=== PATIENT | male | born 1975 | race Caucasian/White ===

== ENCOUNTER 2017-06-05 22:09 | Inpatient (IN) | payer MEDICARE, MEDICAID ==
[~2017-06-05] VITALS: Ht 188 cm; Wt 163.7 kg
--- NOTE | 2017-06-05 22:10 | NUR ---
NARCAN 2MG GIVEN IVP PER DR BEASLEY VERBAL ORDER.
--- NOTE | 2017-06-05 22:13 | NUR ---
BBRA 86; ALTERED/ SOB. PT NOT RESPONSIVE. AGONAL BREATHING NOTED. NO NVD AT THIS TIME. PT NOT DIAPHORETIC. PT GOWNED AND PLACED ON MONITOR DR. BEASLEY AT BEDSIDE, RT AT BEDSIDE.
--- NOTE | 2017-06-05 22:14 | NUR ---
PT INTUBATED PER DR. BEASLEY. RT AT BEDSIDE
--- NOTE | 2017-06-05 22:15 | NUR ---
ET TUBE 8 AT 26 CM LIP. PT PLACED ON PRESCRIBED VENT SETTINGS. AC 15 TV 615 PEEP 5 FI02 100%
--- NOTE | 2017-06-05 22:19 | NUR ---
CALLED NURSING SUP. FOR ICU BED
[2017-06-05] MEDS ORDERED: NALOXONE PREFILLED SYRINGE 2 MG/2 ML SYRINGE ONE (22:23)
[2017-06-05 22:24] VITALS: BP 133/96
[2017-06-05] MEDS ORDERED: IV NS 0.9% 1,000 ML BAG IV ONE (22:30)
--- NOTE | 2017-06-05 22:32 | NUR ---
PT BROUGHT IN TO ER UNRESPONSIVE. PT INTUBATED WITH SIZE 8 ET TUBE @26 LIP. GOOD CO2 EXCHANGE OBSERVED. BILATERAL CHEST MOVEMENT. PT PLACED ON MECHANICAL VENTILATOR. ABG TO FOLLOW. Addendum: 06/05/17 at 2234 by NITZA FOLEY RT Amended: Links added.
--- NOTE | 2017-06-05 22:33 | NUR ---
LAB AT BEDSIDE FOR BLOOD DRAW
--- NOTE | 2017-06-05 22:46 | NUR ---
RADIOLOGY AT BEDSIDE FOR CXR
[2017-06-05 22:50] LABS: BASOPHILS % (AUTO) 0.3 % (0.0-2.0); EOSINOPHILS # (AUTO) 0.9 /CMM (0.0-0.7); EOSINOPHILS % (AUTO) 16.1 % (0.0-6.0); HEMATOCRIT 52 % (39-51); HEMOGLOBIN 17.3 g/dL (13.5-17.5); LYMPHOCYTES # (AUTO) 1.1 /CMM (0.8-4.8); LYMPHOCYTES % (AUTO) 19.2 % (20.0-44.0); MEAN CORPUSCULAR HEMOGLOBIN 28 PG (26.0-33.0); MEAN CORPUSCULAR HGB CONC 33 g/dl (31.0-36.0); MEAN CORPUSCULAR VOLUME 84 fL (80-96); MONOCYTES # (AUTO) 0.5 /CMM (0.1-1.30); NEUTROPHILS # (AUTO) 3.3 /CMM (1.8-8.9); NEUTROPHILS % (AUTO) 56.4 % (43.0-81.0); PLATELET COUNT (AUTO) 233 /CMM (150-450); RDW COEFFICIENT OF VARIATION 16.1 (11.5-15.0); RED BLOOD CELL COUNT(AUTO) 6.21 MIL/uL (4.5-6.0); WHITE BLOOD COUNT (AUTO) 5.8 K/uL (4.3-11.0)
[2017-06-05 22:58] LABS: APPEARANCE,URINE CLEAR (CLEAR); BILIRUBIN,URINE NEGATIVE (NEGATIVE); BLOOD, URINE NEGATIVE Ery/uL (NEGATIVE); COLOR,URINE YELLOW (YELLOW); KETONES,URINE NEGATIVE (NEGATIVE); LEUKOCYTE ESTERASE ,URINE NEGATIVE (NEGATIVE); NITRITE, URINE NEGATIVE (NEGATIVE); PH,URINE 7.5 (5.0-8.0); PROTEIN,URINE NEGATIVE (NEGATIVE); UGLUCOSE NEGATIVE (NEGATIVE); UROBILINOGEN,URINE 0.2 EU/dL (0.2)
[2017-06-05] MEDS ORDERED: ROCURONIUM BROMIDE 50 MG/5 ML IV ONE (23:00)
[2017-06-05] MEDS ORDERED: ETOMIDATE 2 MG/ML VIAL IV ONE (23:00)
[2017-06-05] MEDS ORDERED: PROPOFOL 100 ML IV PRN (23:00)
[2017-06-05 23:16] LABS: SERUM AMMONIA 104 umol/L (11-32)
[2017-06-05] MEDS ORDERED: PROPOFOL 100 ML IV ONE (23:16)
[2017-06-05 23:19] LABS: THYROID STIMULATING HORMONE 5.352 uIU/mL (0.358-3.74)
[2017-06-05 23:20] LABS: CHLORIDE 101 mmol/L (98-107); POTASSIUM 3.6 mmol/L (3.5-5.1); SODIUM SERUM 141 mmol/L (136-145)
[2017-06-05 23:21] LABS: CALCIUM, SERUM 8.4 mg/dL (8.5-10.1); CREATININE 0.8 mg/dL (0.6-1.3); GLUCOSE 116 mg/dL (74-106); UREA NITROGEN, BLOOD 8 mg/dL (7-18)
[2017-06-05 23:22] LABS: CARBON DIOXIDE 40 mmol/L (21-32)
[2017-06-05 23:23] LABS: TROPONIN I < 0.017 ng/mL (0.00-0.056)
--- NOTE | 2017-06-05 23:24 | NUR ---
BED 251 ICU
[2017-06-05 23:27] LABS: ALANINE AMINOTRANSFERASE 16 U/L (12-78); ALKALINE PHOSPHATASE 83 U/L (46-116); ASPARTATE AMINOTRANSFERASE 27 U/L (15-37); BILIRUBIN,TOTAL 0.3 mg/dL (0.2-1.0)
[2017-06-05 23:28] LABS: ACETAMINOPHEN 0 ug/ml (10-30); ALCOHOL, BLOOD < 3 mg/dL (0-0); TOTAL PROTEIN, SERUM 7.2 g/dL (6.4-8.2)
[2017-06-05 23:36] LABS: INR 1.05 (0.87-1.13)
--- NOTE | 2017-06-05 23:40 | NUR ---
VERBAL ORDER 1L NS
[2017-06-05 23:49] LABS: ABG BASE EXCESS 8.6 mmol/L; ABG OXYGEN SATURATION 98.3 % (92.0-98.5); ABG PCO2 58.4 mmHg (35.0-45.0); ABG PH 7.406 (7.350-7.450); ABG PO2 146.9 mmHg (75.0-100.0); AaDO2 507.7 mmHg; COHb 7.8 % (0.5-1.5); MetHb 0.5 % (0.0-1.5); O2Hb 90.1 % (94.0-97.0); PEEP,BG 5 cm H2O; SITE, ABG Right Radial; VT, ABG 600 mL
[2017-06-06] VITALS (56 sets, daily range): BP systolic 86–149; BP diastolic 45–96
[2017-06-06] MEDS ORDERED: IV NS 0.9% 1,000 ML BAG IV ONE
[2017-06-06] MEDS ORDERED: VANCOMYCIN 1 GM in IV D5W 250 ML IV ONE ×2
--- NOTE | 2017-06-06 00:18 | NUR ---
PT RETURNED FROM CT.
[2017-06-06] MEDS ORDERED: CEFTRIAXONE 1GM BAG (ER ONLY) 50 ML IV ONE ×2 (00:19)
--- NOTE | 2017-06-06 00:28 | NUR ---
REPORT GIVEN TO DARSHANA GONZALEZ FOR KAELA.
[2017-06-06] MEDS ORDERED: VANCOMYCIN 1 GM VIAL ONE (00:46)
[2017-06-06] MEDS ORDERED: LEVOFLOXACIN 750 MG /D5W 150ML 150 ML IV ONE ×2 (00:54)
--- NOTE | 2017-06-06 00:57 | NUR ---
PANEL PAGED, WAITING FOR TREASURY ASSOCIATE CATILAN CALL BACK
--- NOTE | 2017-06-06 01:27 | NUR ---
TAYLOR TELLEZ SPEAKING TO DR BEASLEY REGARDING ADMISSION
--- NOTE | 2017-06-06 01:45 | NUR ---
PASSENGER AGENT LIMITED ADMISSION ASSESSMENT D/T PT BEING INTUBATED/SEDATED; NO FAMILY AVAILABLE.
--- NOTE | 2017-06-06 01:52 | NUR ---
PT TRANSFERRED PER ACLS PROTOCOL.
[2017-06-06] MEDS ORDERED: ZOLPIDEM TARTRATE 5 MG TABLET PO PRN (02:00)
[2017-06-06] MEDS ORDERED: ONDANSETRON HCL/PF 4 MG/2 ML VIAL IVP PRN (02:00)
[2017-06-06] MEDS ORDERED: MAGNESIUM HYDROXIDE 30 ML UDC PO PRN (02:00)
[2017-06-06] MEDS ORDERED: ENOXAPARIN SODIUM 40 MG/0.4 ML DISP.SYRIN SQ SCH (02:00)
--- NOTE | 2017-06-06 02:00 | NUR ---
HAUL CANE BRAKEMAN RCD PT W/DX AMS; PT SEDATED ON DIPRIVAN AT 40 MCG/KG/MIN. INUTBATED 8 @ 26 WITH VENT SETTINGS AC 18 600 100% +5; THICK WHITE SECRETIONS. SB/NSR ON MONITOR. OG TUBE CLAMPED. NEWELL CATHETER WITH ADEQUATE AMOUNT OF DARK YELLOW URINE. BLE REDNESS/DISCOLORATION. TEMP 95; WARMING MEASURES INITIATED.
--- NOTE | 2017-06-06 02:00 | NUR ---
SLASHER OBTAINED ORDER FOR BL SOFT WRIST RESTRAINS PT IS NOTED TO BE WAKING UP DURING ADLS DESPITE BEING ON DIPRIVAN AT 40 MCG/KG/MIN; WILL ATTEMPT TO INCREASE DIPRIVAN AND REMOVE BL SOFT WRIST RESTRAINTS DEPENDING ON PT BP. CONTINUE TO MONITOR.
[2017-06-06] MEDS: PROPOFOL 100 ML IV PRN ×7 (02:27→22:16)
[2017-06-06] MEDS: IV NS 0.9% 1,000 ML IV PRN ×2 (02:27→18:00)
--- NOTE | 2017-06-06 02:30 | NUR ---
PILE DRIVING SUPERINTENDENT NOTED PT W/DECREASED SBP; ADEQUATELY SEDATED. DECREASED PROPOFOL TO 35 MCG/KG/MIN. CONTINUE TO MONITOR.
[2017-06-06] MEDS ORDERED: ENOXAPARIN SODIUM 40 MG/0.4 ML DISP.SYRIN SQ ONE (02:36)
--- NOTE | 2017-06-06 03:40 | NUR ---
DATA POWER CONSULTANT PT REMAINS HYPOTENSIVE; DIPRIVAN DECREASED TO 20 MCG/KG/MIN.
[2017-06-06] MEDS ORDERED: IPRATROPIUM NEB FS 0.5 MG/2.5 ML AMPUL.NEB ONE (03:56)
[2017-06-06] MEDS ORDERED: ALBUTEROL FS 2.5 MG/0.5 ML VIAL.NEB ONE (03:57)
[2017-06-06] MEDS: ALBUTEROL FS 2.5 MG/0.5 ML VIAL.NEB NEB SCH ×6 (04:02→23:29)
[2017-06-06] MEDS: IPRATROPIUM NEB FS 0.5 MG/2.5 ML AMPUL.NEB NEB SCH ×6 (04:02→23:30)
[2017-06-06] MEDS ORDERED: ENAL5TAB PO (05:32)
[2017-06-06] MEDS ORDERED: DULO30CA2 PO (05:32)
[2017-06-06] MEDS ORDERED: CLOT15CR5 TP (05:32)
[2017-06-06] MEDS ORDERED: FAMO20TA8 PO (05:32)
[2017-06-06] MEDS ORDERED: DIVA500T7 PO ×2 (05:32)
[2017-06-06] MEDS ORDERED: DOCU250C89 PO (05:32)
[2017-06-06] MEDS ORDERED: ATOR80TA PO (05:32)
[2017-06-06] MEDS ORDERED: PROP60CA2 PO (05:43)
[2017-06-06] MEDS ORDERED: HYDR25TA4 PO (05:43)
[2017-06-06] MEDS ORDERED: METF500T4 PO (05:43)
[2017-06-06] MEDS ORDERED: SILV50CR32 TP (05:43)
[2017-06-06] MEDS ORDERED: TOPI50TA24 PO (05:43)
[2017-06-06] MEDS ORDERED: LEVO88TA5 PO (05:43)
[2017-06-06] MEDS ORDERED: PALI6TAB PO (05:43)
[2017-06-06] MEDS ORDERED: QUET400T PO (05:45)
[2017-06-06] MEDS ORDERED: PROPOFOL 100 ML IV ONE (05:55)
[2017-06-06] MEDS ORDERED: PIPERACILLIN /TAZOBACTAM 3.375 G in IV D5W 50 ML IV SCH (06:00)
[2017-06-06 06:14] LABS: BASOPHILS % (AUTO) 0.2 % (0.0-2.0); EOSINOPHILS # (AUTO) 0.5 /CMM (0.0-0.7); EOSINOPHILS % (AUTO) 10.2 % (0.0-6.0); HEMATOCRIT 38 % (39-51); HEMOGLOBIN 12.6 g/dL (13.5-17.5); LYMPHOCYTES # (AUTO) 0.7 /CMM (0.8-4.8); LYMPHOCYTES % (AUTO) 16.7 % (20.0-44.0); MEAN CORPUSCULAR HEMOGLOBIN 28 PG (26.0-33.0); MEAN CORPUSCULAR HGB CONC 34 g/dl (31.0-36.0); MEAN CORPUSCULAR VOLUME 84 fL (80-96); MONOCYTES # (AUTO) 0.3 /CMM (0.1-1.30); MONOCYTES % (AUTO) 6.8 % (2.0-12.0); NEUTROPHILS # (AUTO) 2.9 /CMM (1.8-8.9); NEUTROPHILS % (AUTO) 66.1 % (43.0-81.0); PLATELET COUNT (AUTO) 158 /CMM (150-450); RDW COEFFICIENT OF VARIATION 15.9 (11.5-15.0); RED BLOOD CELL COUNT(AUTO) 4.49 MIL/uL (4.5-6.0); WHITE BLOOD COUNT (AUTO) 4.4 K/uL (4.3-11.0)
--- NOTE | 2017-06-06 06:52 | NUR ---
OFFENDER JOB RETENTION SPECIALIST PT REMAINED ON BL SOFT WRIST RESTRAINTS WELL DIPRIVAN AT 20 MCG/KG/MIN; PT EASILY WAKES UP DURING ADLs AND ORAL CARE UNABLE TO INCREASE DIPRIVAN PT BECOMES HYPOTENSIVE.
--- NOTE | 2017-06-06 07:45 | NUR ---
RN NOTES RECEIVED PT IN BED, SEDATED. ETT SIZE 8 26CM AT THE LIP. VENT SETTINGS PRESCRIBED: AC 18 TV 600 FIO2 100% PEEP 5. SUCTIONED FOR AIRWAY CLEARANCE. SINUS IN BREEDING TECHNICIAN. IVF NS@75ML/HR RUNNING, PT ON DIPRIVAN @20MCG/KG/MIN, LOWERED RATE FOR SEDATION VACATION. BILATERAL SOFT WRIST RESTRAINTS IN PLACE, RELEASED AND CHECKED FOR CIRCULATION. FC PATENT CONNECTED TO CLOSED SYSTEM. OGT CLAMPED/ IV SALINE LOCK FLUSHED WITH NS PATENT. KEPT COMFORTABLE WILL MONITOR CLOSELY
--- NOTE | 2017-06-06 08:10 | NUR ---
RN NOTES PT ON SEDATION VACATION, PT IS AWAKE, UNABLE TO FOLLOW COMMANDS. AGITATED ON MECHANICAL VENT. TACHPNEIC WITH LABORED BREATHING. PT KICKING AND ATTEMPTS OF PULLING OUT TUBES. WILL RESUME SEDATION
--- NOTE | 2017-06-06 08:24 | NUR ---
RT PATIENT REC'D ORALLY INTUBATED WITH AN 8.0 ETT SECURED AT 26CM MID LIP VIA ANCHOR FAST. VENT SETTINGS SET PER MD GEE STALEY. VENT ALARMS CHECKED + AUDIBLE. CUFF PRESSURE CHECKED QUALITY PROJECT MANAGER. SX'D WITH MOD AMT PALE SEMITHICK SECRETIONS. B/S COARSE WHEEZE. AMBU BAG AT HOB. CONT CURRENT PLAN OF RESP CARE. Addendum: 06/06/17 at 1104 by PANCHO SCHMITZ RT Amended: Links added.
[2017-06-06] MEDS ORDERED: LACTULOSE 10 G/15 ML UDC (PYXIS) GT ONE (08:32)
[2017-06-06] MEDS ORDERED: FEE PK DOSING 1 MIN EA MC ONE (08:40)
[2017-06-06] MEDS ORDERED: ROCURONIUM BROMIDE 50 MG/5 ML IV ONE (08:42)
[2017-06-06] MEDS ORDERED: ETOMIDATE 2 MG/ML VIAL IV ONE (08:42)
--- NOTE | 2017-06-06 08:55 | NUR ---
RN NOTES SPOKE WITH IBIS, CLARIFIED LACTULOSE ORDER. PER IBIS LACTULOSE TID, ORDERS NOTED AND CARRIED OUT
[2017-06-06 09:14] LABS: CALCIUM, SERUM 8.1 mg/dL (8.5-10.1); CREATININE 0.8 mg/dL (0.6-1.3); MAGNESIUM 1.9 mg/dL (1.8-2.4); PHOSPHORUS 2.5 mg/dL (2.5-4.9); POTASSIUM 3.4 mmol/L (3.5-5.1)
--- NOTE | 2017-06-06 09:19 | NUR ---
RN NOTES IBIS GARCIA AT BEDSIDE, PT WAS SEEN AND EVALUATED, VS DISCUSSED AND CURRENT LABS. SBP 9'S. PT ON PROPOFOL@40MCG/KG/MIN. IBIS INFORMED PT WAS RESTLESS AND AGITATED DURING SEDATION VACATION. PER IBIS TO OBTAIN SPUTUM SPECIMEN FOR CX.
--- NOTE | 2017-06-06 09:26 | NUR ---
RN NOTES DR WALLACE AT BEDSIDE, PT WAS SEEN AND EVALUATED, VS DISCUSSED AND CURRENT LABS. SBP 90'S. DR WALLACE INFORMED PT WAS RESTLESS AND AGITATED DURING SEDATION VACATION, UNABLE TO FOLLOW COMMANDS AND PT IS TRYING TO PULL OUT TUBES AND LINES, PROPOFOL RESUMED. ONGOING IVF NS@75ML/HR. WILL MONITOR CLOSELY
--- NOTE | 2017-06-06 09:41 | NUR ---
RN NOTES NOTED BP 83/39, SPOKE WITH IBIS PER IBIS MAY START LEVOPHED PRN GOAL MAP 65.
--- NOTE | 2017-06-06 09:45 | NUR ---
RN NOTES CURRENT BP 101/62, SPOKE WITH IBIS PER IBIS IF BP DROPS, GIVE 500 ML IV BOLUS FIRST, IF NOT IMPROVED MAY START LEVO. GOAL MAP 65
[2017-06-06 09:46] LABS: ABG BASE EXCESS 5.7 mmol/L; ABG OXYGEN SATURATION 95.4 % (92.0-98.5); ABG PH 7.471 (7.350-7.450); ABG PO2 77.5 mmHg (75.0-100.0); AaDO2 593.5 mmHg; COHb 0.9 % (0.5-1.5); MetHb 0.6 % (0.0-1.5); PEEP,BG 5 cm H2O; SITE, ABG Right Radial; VENT MODE, BG AC 18 600 100% +5; VT, ABG 600 mL
[2017-06-06] MEDS: VANCOMYCIN 1.5 GM in IV D5W 500 ML IV SCH ×2 (10:15→20:30)
--- NOTE | 2017-06-06 10:15 | NUR ---
RN NOTES LATEST ABG REPORTED TO DR WALLACE. PER PEEP OF 10 AND TITRATE FIO2 TO KEEP 02 SAT >92%. PANCHO NOTIFIED
[2017-06-06 10:33] LABS: FREE T4 (FREE THYROXINE) 1.01 ng/dL (0.76-1.46)
[2017-06-06] MEDS: Z GUARD REMEDY 2 OZ OINT TP PRN (10:52)
[2017-06-06] MEDS ORDERED: POTASSIUM CHLORIDE 20 MEQ TAB.PRT.SR PO ONE (11:00)
--- NOTE | 2017-06-06 11:01 | NUR ---
RT PER DR WALLACE ORDER PEEP OF 10 ADDED Addendum: 06/06/17 at 1102 by PANCHO SCHMITZ RT Amended: Links added.
[2017-06-06] MEDS: ACETYLCYSTEINE 10% SOLN 400 MG/4 ML VIAL NEB SCH ×3 (11:30→23:30)
[2017-06-06] MEDS: CEFEPIME 2 GM in IV D5W 100 ML IV SCH ×2 (12:10→20:30)
[2017-06-06] MEDS: LACTULOSE 10 G/15 ML UDC (PYXIS) PO SCH ×2 (13:17→17:18)
[2017-06-06] MEDS ORDERED: NOREPINEPHRINE 8 MG in IV D5W 500 ML IV PRN (13:30)
[2017-06-06] MEDS ORDERED: CEFTRIAXONE 1 G VIAL IV SCH (15:00)
--- NOTE | 2017-06-06 15:00 | NUR ---
RN NOTES CALLED CONSERVATOR ANGELICA WALL, TO GET CONSENT FOR PICCLINE INSERTION NO ANSWER, PT NEEDS PICCLINE FOR MED ADMINISTRATION FOR PRESSURE SUPPORT. IBIS GARCIA AWARE AND [place] AWARE.
--- NOTE | 2017-06-06 15:45 | NUR ---
rn notes pt noted pulling out et tube. pt is awake. diprivan increased to 40mcg/kg/min
--- NOTE | 2017-06-06 19:19 | NUR ---
RN NOTES PT IN BED, SEDATED. NO ACUTE CHANGE IN CONDITION NOTED. ALL DUE MEDS GIVEN. NEEDS ATTENDED, PT APPEARS CALM ON DIRPIVAN @40MICS. NO BM NOTED S/P LACTULOSE ADMINISTRATION, ENDORSED TO LIO GILL[place]
--- NOTE | 2017-06-06 20:05 | NUR ---
INCREASED FIO2 TO 100% DO TO LOW 02 SAT. RN NOTIFIED.
--- NOTE | 2017-06-06 20:10 | NUR ---
BENCH PRECISION ASSEMBLER PT NOTED TO BE DESATURATING FIO2 INCREASED TO 100% BY RT. CONTINUE TO MONITOR.
--- NOTE | 2017-06-06 20:11 | NUR ---
PT RECEIVED INTUBATED WITH 8.0 ETT SECURED AT 26CM AT THE LIP. TOLERATING VENT SETTINGS. NO RESP DISTRESS. SX'D FOR MOD AMT OF THICK YELLOW SECRETIONS. VENT ALARMS SET AND AUDIBLE. AMBU BAG AT BEDSIDE. VENT PLUGGED INTO RED OUTLET. WILL CONTINUE TO MONITOR. Addendum: 06/06/17 at 2013 by AKBAR HENRIQUEZ RT Amended: Links added.
[2017-06-06] MEDS ORDERED: CEFTRIAXONE 1 G in IV D5W 50 ML IV SCH (23:00)
[2017-06-07] VITALS (57 sets, daily range): BP systolic 117–169; BP diastolic 65–106
[2017-06-07] MEDS: PROPOFOL 100 ML IV PRN ×7 (00:09→13:50)
[2017-06-07 00:41] LABS: ABG BASE EXCESS 5.4 mmol/L; ABG OXYGEN SATURATION 92.6 % (92.0-98.5); ABG PCO2 43.4 mmHg (35.0-45.0); ABG PH 7.458 (7.350-7.450); ABG PO2 66.6 mmHg (75.0-100.0); COHb 0.3 % (0.5-1.5); MetHb 0.6 % (0.0-1.5); O2Hb 91.8 % (94.0-97.0); PEEP,BG 10 cm H2O; SITE, ABG Right Radial
--- NOTE | 2017-06-07 00:47 | NUR ---
ABG DONE. RN NOTIFIED WITH THE RESULT.
--- NOTE | 2017-06-07 00:50 | NUR ---
RELAY ENGINEER PT NOTED TO BE DESATURATING; ;TITRATING DIPRIVAN TO MAKE PT COMFORTABLE. ABG DONE BY RT. CONTINUE TO MONITOR PT.
[2017-06-07] MEDS: ALBUTEROL FS 2.5 MG/0.5 ML VIAL.NEB NEB SCH ×6 (02:56→23:29)
[2017-06-07] MEDS: IPRATROPIUM NEB FS 0.5 MG/2.5 ML AMPUL.NEB NEB SCH ×6 (02:56→23:29)
[2017-06-07] MEDS: CEFEPIME 2 GM in IV D5W 100 ML IV SCH ×3 (05:15→21:11)
[2017-06-07 05:32] LABS: MAGNESIUM 1.6 mg/dL (1.8-2.4); PHOSPHORUS 2.8 mg/dL (2.5-4.9); POTASSIUM 3.9 mmol/L (3.5-5.1)
[2017-06-07 05:43] LABS: CALCIUM, SERUM 8.1 mg/dL (8.5-10.1); CREATININE 0.5 mg/dL (0.6-1.3)
[2017-06-07 06:00] LABS: EOSINOPHILS # (AUTO) 0.4 /CMM (0.0-0.7); HEMATOCRIT 45 % (39-51); HEMOGLOBIN 16.2 g/dL (13.5-17.5); LYMPHOCYTES # (AUTO) 0.7 /CMM (0.8-4.8); LYMPHOCYTES % (AUTO) 13.9 % (20.0-44.0); MEAN CORPUSCULAR HEMOGLOBIN 30 PG (26.0-33.0); MEAN CORPUSCULAR HGB CONC 36 g/dl (31.0-36.0); MEAN CORPUSCULAR VOLUME 83 fL (80-96); MONOCYTES # (AUTO) 0.5 /CMM (0.1-1.30); MONOCYTES % (AUTO) 9.9 % (2.0-12.0); NEUTROPHILS # (AUTO) 3.1 /CMM (1.8-8.9); NEUTROPHILS % (AUTO) 66.2 % (43.0-81.0); PLATELET COUNT (AUTO) 198 /CMM (150-450); RDW COEFFICIENT OF VARIATION 15.9 (11.5-15.0); RED BLOOD CELL COUNT(AUTO) 5.35 MIL/uL (4.5-6.0); WHITE BLOOD COUNT (AUTO) 4.8 K/uL (4.3-11.0)
[2017-06-07] MEDS: ACETYLCYSTEINE 10% SOLN 400 MG/4 ML VIAL NEB SCH ×3 (07:17→23:29)
--- NOTE | 2017-06-07 07:50 | NUR ---
RT PATIENT REC'D ORALLY INTUBATED ON [facility] VENT WITH SETTINGS SET BY . VENT ALARMS CHECKED + AUDIBLE. FIO2 TITRATED DOWN TO 80%. SX'D WITH SMALL AMT PALE SECRETIONS. AMBU BAG AT HOB PATIENT IN CRITICAL CONDITION Addendum: 06/07/17 at 0751 by PANCHO SCHMITZ RT Amended: Links added.
[2017-06-07] MEDS: LACTULOSE 10 G/15 ML UDC (PYXIS) PO SCH ×3 (08:26→16:41)
[2017-06-07] MEDS: ENOXAPARIN SODIUM 40 MG/0.4 ML DISP.SYRIN SQ SCH (08:26)
[2017-06-07] MEDS: VANCOMYCIN 1.5 GM in IV D5W 500 ML IV SCH ×2 (08:26→21:11)
[2017-06-07 08:58] LABS: ABG BASE EXCESS 7.3 mmol/L; ABG OXYGEN SATURATION 95.3 % (92.0-98.5); ABG PH 7.426 (7.350-7.450); ABG PO2 78.3 mmHg (75.0-100.0); AaDO2 437.5 mmHg; COHb 0.5 % (0.5-1.5); MetHb 0.4 % (0.0-1.5); O2Hb 94.4 % (94.0-97.0); PEEP,BG 10 cm H2O; SITE, ABG Right Radial; VT, ABG 600 mL
--- NOTE | 2017-06-07 09:30 | NUR ---
RN NOTES 09 JULEE HELD, PT ON SEDATION VACATION 0930 PT AWAKE, OPENS EYES, ABLE TO FOLLOW COMMANDS. PT VERY AGITATED, KICKING AND ATTEMPTED TO REMOVE TUBES AND LINES. RESUME PT ON SEDATION.
--- NOTE | 2017-06-07 09:38 | NUR ---
RN NOTES DR WALLACE AT BEDSIDE, PT WAS SEEN AND EVALUATED. LATEST ABG REPORTED PH 7.42 PCO2 52 PO2 78.3 HCO3 33.4 ON 80%FIO2, PER DR WALLACE KEEP THE SAME SETTINGS. PT WAS ON SEDATION VACATION, PT AWAKE, OPENS EYES, ABLE TO FOLLOW COMMANDS. PT VERY AGITATED, KICKING AND ATTEMPTED TO REMOVE TUBES AND LINES. RESUME PT ON SEDATION.
--- NOTE | 2017-06-07 09:45 | NUR ---
RN NOTES PER DR WALLACE TO DISREGARD THORACENTESIS ORDER
[2017-06-07] MEDS ORDERED: MIDAZOLAM HCL 100 MG in IV NS 0.9% 80 ML IV PRN (11:00)
[2017-06-07] MEDS ORDERED: FENTANYL CITRATE IV 1,250 MCG in IV NS 0.9% 225 ML IV PRN (11:00)
[2017-06-07] MEDS: Magnesium 1GM/D5W 100ML PREMIX 100 ML IV SCH ×2 (11:05→12:02)
[2017-06-07] MEDS: IV NS 0.9% 1,000 ML IV PRN (11:06)
--- NOTE | 2017-06-07 17:45 | NUR ---
RN NOTES PT IN BED SEDATED. INTUBATED ON [facility] VENT SETTINGS PRESCRIBED. SUCTIONED FOR AIRWAY CLEARANCE. SATURATING 92-999%. PT SEDATED ON VERSED @MG AND FENTANYL@50MICS. NO FEBRILE EPISODE. FC INTACT NOTED WITH GOOD URINE OUTPUT. IVF NS@75ML/HR INFUSING CONTINUOUSLY PER IBIS GARCIA ORDER. TAI PICCLINE IN PLACE ALL PORTS FLUSHING WELL WITH GOOD BLOOD FLOW RETURN. DUE MEDS GIVEN, NEEDS ATTENDED PT KEPT COMFORTABLE ON BIG BOY BED WITH SPECIAL MATTRESS. WILL CLOSELY MONITOR
--- NOTE | 2017-06-07 19:15 | NUR ---
RN NOT[facility]SPOKE WITH OLI MINER. PT IS ON VERSED DRIP AND FENTANYL DRIP, PT IS RESTLESS AGITATED AND FIGHTING THE VENTILATOR. PT WITH ATTEMPTS OF REMOVING TUBED AND LINES. PER OLI MAY INCREASE VERSED UP TO 10MG/HR AND FENTANYL UP TO 250MCG. ORDERS READ BACK NOTED AND CARRIED OUT
[2017-06-07] MEDS: MIDAZOLAM HCL 100 MG in IV NS 0.9% 80 ML IV PRN (19:30)
[2017-06-07] MEDS: FENTANYL CITRATE IV 1,250 MCG in IV NS 0.9% 225 ML IV PRN (19:30)
--- NOTE | 2017-06-07 19:30 | NUR ---
AERIAL PHOTOGRAPH INTERPRETER RCD PT W/DX AMS; PT IS EXTREMELY AGITATED AWAKE; WEANING OFF DIPRIVAN; ORDERS RECEIVED TO INCREASE FENTANYL TO 250 MCG/HR AND VERDED 10 MG/HR. NSR ON MONITOR. INTUBATED 8 @ 26 WITH VENT SETTINGS AC [id number] 80% 10. PT WITH LARGE AMOUNT OF THICK WHITE SECRETIONS. OG TUBE CLAMPED. NEWELL CATHETER DRAINING ADEQUATE AMOUNT OF YELLOW URINE WITH SEDIMENT. CONTINUE TO MONITOR.
[2017-06-07] MEDS: CIPROFLOXACIN HCL 0.3% 5 ML BOTTLE OT SCH (19:46)
--- NOTE | 2017-06-07 20:00 | NUR ---
CORPORATE ACCOUNT EXECUTIVE PT ADEQUATELY SEDATED FENTANYL REMAINS AT 250 MCG/HR AND VERSED 10 MG/HR.
--- NOTE | 2017-06-07 21:15 | NUR ---
TIME STUDY OBSERVER ENRIQUE LEVEL 11; DYANO ADMINISTERED PHARMACY NOT AVAILABLE TO READJUST DOSE. WILL ENDORSE TO NEXT SHIFT TO NOTIFY PHARMACY.
--- NOTE | 2017-06-07 22:00 | NUR ---
INVESTMENT BANKER PT SEDATED ON FENTANYL 250 MCG/HR AND VERSED 10 MG/HR; HOWEVER PT EASILY WAKES UP DURING ADLs AND ORAL CARE; BL SOFT WRIST RESTRAINTS REMAIN IN PLACE FOR SAFETY.
[2017-06-08] VITALS (55 sets, daily range): BP systolic 83–151; BP diastolic 32–85
[2017-06-08] MEDS: ACETAMINOPHEN 325 MG TABLET PO PRN (00:29)
[2017-06-08] MEDS: FENTANYL CITRATE IV 1,250 MCG in IV NS 0.9% 225 ML IV PRN ×2 (00:30→06:01)
--- NOTE | 2017-06-08 00:30 | NUR ---
DECORATING INSPECTOR PT NOTED WITH TEMP 100; TYLENOL ADMINISTERED AND COOLING MEASURES INITIATED. CONTINUE TO MONITOR.
--- NOTE | 2017-06-08 02:30 | NUR ---
BRIDGE CRANE OPERATOR PT GIVEN COMPLETE BED BATH; SATURATION NOTED TO BE 87%. CONTINUE TO MONITOR. PT EASILY WAKES UP DURING ADLs; FENTANYL REMAINS AT 250 MCG/HR AND VERSED 10 MG/HR.
[2017-06-08] MEDS: IPRATROPIUM NEB FS 0.5 MG/2.5 ML AMPUL.NEB NEB SCH ×6 (03:17→23:05)
[2017-06-08] MEDS: ALBUTEROL FS 2.5 MG/0.5 ML VIAL.NEB NEB SCH ×6 (03:17→23:05)
[2017-06-08] MEDS: MIDAZOLAM HCL 100 MG in IV NS 0.9% 80 ML IV PRN ×2 (03:19→11:38)
--- NOTE | 2017-06-08 03:19 | NUR ---
PEEP INCREASE PER PELEG Addendum: 06/08/17 at 0321 by FARIHA WADE RT Amended: Links added.
--- NOTE | 2017-06-08 03:21 | NUR ---
PT RECEIVED INTUBATED WITH 8.0 ETT SECURED AT 26CM AT THE LIP. TOLERATING VENT SETTINGS. NO RESP DISTRESS. SX'D FOR MOD AMT OF THICK YELLOW SECRETIONS. VENT ALARMS SET AND AUDIBLE. AMBU BAG AT BEDSIDE. VENT PLUGGED INTO RED OUTLET. WILL CONTINUE TO MONITOR. Addendum: 06/08/17 at 0321 by FARIHA WADE RT Amended: Links added.
[2017-06-08] MEDS: CEFEPIME 2 GM in IV D5W 100 ML IV SCH ×3 (05:03→20:29)
[2017-06-08] MEDS: IV NS 0.9% 1,000 ML IV PRN (05:03)
[2017-06-08 05:20] LABS: BASOPHILS % (AUTO) 0.5 % (0.0-2.0); EOSINOPHILS # (AUTO) 0.5 /CMM (0.0-0.7); EOSINOPHILS % (AUTO) 9.2 % (0.0-6.0); HEMATOCRIT 47 % (39-51); HEMOGLOBIN 15.3 g/dL (13.5-17.5); LYMPHOCYTES # (AUTO) 0.8 /CMM (0.8-4.8); LYMPHOCYTES % (AUTO) 15.3 % (20.0-44.0); MEAN CORPUSCULAR HEMOGLOBIN 27 PG (26.0-33.0); MEAN CORPUSCULAR HGB CONC 33 g/dl (31.0-36.0); MEAN CORPUSCULAR VOLUME 82 fL (80-96); MONOCYTES # (AUTO) 0.6 /CMM (0.1-1.30); NEUTROPHILS # (AUTO) 3.3 /CMM (1.8-8.9); PLATELET COUNT (AUTO) 179 /CMM (150-450); RDW COEFFICIENT OF VARIATION 15.6 (11.5-15.0); RED BLOOD CELL COUNT(AUTO) 5.69 MIL/uL (4.5-6.0); WHITE BLOOD COUNT (AUTO) 5.2 K/uL (4.3-11.0)
[2017-06-08 05:47] LABS: CALCIUM, SERUM 7.8 mg/dL (8.5-10.1); CREATININE 0.7 mg/dL (0.6-1.3); POTASSIUM 2.9 mmol/L (3.5-5.1)
--- NOTE | 2017-06-08 07:30 | NUR ---
RT PER DR WALLACE INCREASED PEEP TO 14. PATIENT ORALLY INTUBATED ON [facility] VENT WITH SETTING SSET BY . VENT ALARMS CHECKED + AUDIBLE. CUFF PRESSURE CHECKED CASTING OPERATOR HELPER. SX'D WITH MOD AMT PALE YELLOW SEMITHICK SECRETIONS. PATIENT IN CRITICAL CONDITION. AMBU BAG AT HOB. Addendum: 06/08/17 at 1037 by PANCHO SCHMITZ RT Amended: Links added.
[2017-06-08] MEDS: ACETYLCYSTEINE 10% SOLN 400 MG/4 ML VIAL NEB SCH ×3 (07:35→23:30)
[2017-06-08 08:50] LABS: ABG BASE EXCESS 4.3 mmol/L; ABG OXYGEN SATURATION 89.4 % (92.0-98.5); ABG PCO2 50.3 mmHg (35.0-45.0); ABG PH 7.399 (7.350-7.450); AaDO2 601.7 mmHg; COHb 0.3 % (0.5-1.5); MetHb 0.6 % (0.0-1.5); O2Hb 88.6 % (94.0-97.0); PEEP,BG 14 cm H2O; SITE, ABG Right Radial
[2017-06-08] MEDS: VANCOMYCIN 1.5 GM in IV D5W 500 ML IV SCH ×2 (09:43→20:29)
[2017-06-08] MEDS: ENOXAPARIN SODIUM 40 MG/0.4 ML DISP.SYRIN SQ SCH (09:47)
[2017-06-08] MEDS: CIPROFLOXACIN HCL 0.3% 5 ML BOTTLE OT SCH ×2 (09:50→17:28)
[2017-06-08] MEDS: POTASSIUM CL. PREMIX PERIPHER. 50 ML IV SCH ×4 (10:29→13:18)
--- NOTE | 2017-06-08 10:30 | NUR ---
RN NOTES PT NOTED HYPERVENTILATING, AND SHAKING, RT AT BEDSIDE AND CHARGE NURSE AT BEDSIDE. CALLED IBIS GARCIA PER IBIS ROMEO TO INCREASE FENTANYL UP TO 300MCG/KG/MIN AND MAY GIVE ATIVAN 1 MG Q4H PRN. ORDERS READ BACK NOTED AND CARRIED OUT
[2017-06-08] MEDS ORDERED: LORAZEPAM INJ 2 MG/ML VIAL ONE (10:36)
[2017-06-08] MEDS ORDERED: LORAZEPAM INJ 2 MG/ML VIAL IV PRN (11:00)
[2017-06-08] MEDS ORDERED: FENTANYL CITRATE IV 1,250 MCG in IV NS 0.9% 225 ML IV PRN ×2 (11:00→11:41)
--- NOTE | 2017-06-08 11:00 | NUR ---
RN NOTES VENT AND SETTINGS CHANGED PER DR WALLACE ORDER, PT NOTED HYPERVENTILATING AND SHAKING HAVING SEIZURE LIKE ACTIVITY. ERIN GILLILAND, RT AT BEDSIDE. SAFETY MAINTAINED, ALL SIDERAILS UP. SPOKE WITH IBIS REPORTED CONDITION PER IBIS TO GET ANOTHER EEG AND CHANGE ATIVAN TO 2MG IVP Q4H. REPORTED TO IBIS AMMONIA LEVEL OF 31 AND TRIGLYCERIDE 195, PER IBIS TO CONT GIVING LACTULOSE. WILL MONITOR FOR BM.
[2017-06-08] MEDS: LACTULOSE 10 G/15 ML UDC (PYXIS) PO SCH ×3 (11:43→23:08)
--- NOTE | 2017-06-08 11:50 | NUR ---
RN NOTES UNABLE TO SCAN FENTANYL IV DRIP SENT BY PHARMACY, BI FROM PHARMACY MADE AWARE
--- NOTE | 2017-06-08 15:00 | NUR ---
RN NOTES ERIN GILLILAND SPOKE WITH PER DR WALLACE, PER TITRTAE VERSED AND FENTANYL OFF AND SWITCH PATIENT BACK TO DIPRIVAN DRIP,
[2017-06-08] MEDS: PROPOFOL 100 ML IV PRN ×6 (16:26→23:08)
--- NOTE | 2017-06-08 16:39 | NUR ---
RN NOTES PT IN BED TRANSMITTER TESTER AT BEDSIDE. PT SEDATED, ON [facility] VENTILATOR SATURATING 90-91%. NO APPARENT DISTRESS NOTED. NO BM NOTED AT THIS TIME. ALL DUE MEDS GIVEN. ENDORSED TO MIS GILLILAND FOR CONTINUITY OF CARE.
--- NOTE | 2017-06-08 16:40 | NUR ---
PLANE RUNNER NOTES RECEIVED PATIENT SEDATED , ON MECHANICAL VENTILATOR SETTINGS ORDERED WITH SPO2 OF 100% TOLERATING WELL , ETT 8.0/ IN PLACE WITH OGT IN PLACE CLAMPED , ST 105 ON BEDSIDE MONITOR , FC DRAINING WELL VIA GRAVITY , L HAND # 20 AND R HAND # 20 PATENT AND INTACT , TAI PICCLINE WITH DIPRIVAN @ 40MCG/KG/MIN , AND VERSED @ 10ML TITRATION ACCORDINGLY , ALL NEEDS ATTENDED , BED ON LOW AND LOCKED POSITION , SIDE RAILS X2 WILL CONTINUE TO MONITOR
--- NOTE | 2017-06-08 18:15 | NUR ---
SUPERVISOR COMMERCIAL FISH HATCHERY NOTES NOTIFIED IBIS GARCIA THAT PATIENT STILL HAS NO BM DESPITE GIVING LACTULOSE . AWAITING FOR CALL BACK
--- NOTE | 2017-06-08 19:25 | NUR ---
PT RECEIVED INTUBATED WITH 8.0 ETT SECURED AT 26CM AT THE LIP. TOLERATING VENT SETTINGS. NO RESP DISTRESS. SX'D FOR MOD AMT OF THICK YELLOW SECRETIONS. VENT ALARMS SET AND AUDIBLE. AMBU BAG AT BEDSIDE. VENT PLUGGED INTO RED OUTLET. WILL CONTINUE TO MONITOR. Addendum: 06/08/17 at 1925 by FARIHA WADE RT Amended: Links added.
[2017-06-09] VITALS (52 sets, daily range): BP systolic 98–167; BP diastolic 50–106
[2017-06-09] MEDS: IV NS 0.9% 1,000 ML IV PRN ×2 (00:51→12:53)
[2017-06-09] MEDS: PROPOFOL 100 ML IV PRN ×15 (01:30→23:33)
[2017-06-09] MEDS: IPRATROPIUM NEB FS 0.5 MG/2.5 ML AMPUL.NEB NEB SCH ×5 (03:34→20:05)
[2017-06-09] MEDS: ALBUTEROL FS 2.5 MG/0.5 ML VIAL.NEB NEB SCH ×5 (03:35→20:05)
[2017-06-09] MEDS: ACETAMINOPHEN 325 MG TABLET PO PRN ×2 (04:09→12:53)
[2017-06-09] MEDS: CEFEPIME 2 GM in IV D5W 100 ML IV SCH ×3 (04:09→20:52)
[2017-06-09] MEDS: LACTULOSE 10 G/15 ML UDC (PYXIS) PO SCH ×3 (05:50→17:04)
[2017-06-09 06:04] LABS: BASOPHILS % (AUTO) 0.4 % (0.0-2.0); EOSINOPHILS # (AUTO) 0.3 /CMM (0.0-0.7); EOSINOPHILS % (AUTO) 4.8 % (0.0-6.0); HEMATOCRIT 46 % (39-51); HEMOGLOBIN 14.8 g/dL (13.5-17.5); LYMPHOCYTES # (AUTO) 0.6 /CMM (0.8-4.8); MEAN CORPUSCULAR HEMOGLOBIN 27 PG (26.0-33.0); MEAN CORPUSCULAR HGB CONC 32 g/dl (31.0-36.0); MEAN CORPUSCULAR VOLUME 82 fL (80-96); MONOCYTES # (AUTO) 0.9 /CMM (0.1-1.30); MONOCYTES % (AUTO) 15.9 % (2.0-12.0); NEUTROPHILS # (AUTO) 4.1 /CMM (1.8-8.9); NEUTROPHILS % (AUTO) 68.9 % (43.0-81.0); PLATELET COUNT (AUTO) 192 /CMM (150-450); RDW COEFFICIENT OF VARIATION 15.5 (11.5-15.0); RED BLOOD CELL COUNT(AUTO) 5.57 MIL/uL (4.5-6.0); WHITE BLOOD COUNT (AUTO) 5.9 K/uL (4.3-11.0)
[2017-06-09 06:12] LABS: CALCIUM, SERUM 7.8 mg/dL (8.5-10.1); CREATININE 0.8 mg/dL (0.6-1.3); POTASSIUM 3.9 mmol/L (3.5-5.1)
--- NOTE | 2017-06-09 07:05 | NUR ---
RN INITIAL NOTES RECEIVE PT INTUBATED, ON VENT. NO RESPIRATORY DISTRESS NOTED. HOB ELEVATED. NO SIGNS OF PAIN NOTED. PT SEDATED. ON DIPRIVAN AT 85MCG/KG/MIN. WILL TITRATE ACCORDINGLY. OG IN PLACE, CLAMPED. TAI PICC LINE IN PLACE. ON NS AT 75ML/HR. FC IN PLACE. NO HEMATURIA NOTED. BLE ELEVATED. WILL CLOSELY MONITOR.
[2017-06-09] MEDS: ACETYLCYSTEINE 10% SOLN 400 MG/4 ML VIAL NEB SCH ×3 (08:05→23:30)
[2017-06-09] MEDS: CIPROFLOXACIN HCL 0.3% 5 ML BOTTLE OT SCH ×2 (08:11→17:04)
[2017-06-09] MEDS: ENOXAPARIN SODIUM 40 MG/0.4 ML DISP.SYRIN SQ SCH (08:12)
--- NOTE | 2017-06-09 08:20 | NUR ---
RT PATIENT ORALLY INTUBATED ON [facility] VENT WITH SETTING SET BY . VENT ALARMS CHECKED + AUDIBLE. CUFF PRESSURE CHECKED MARKETING DEVELOPMENT SPECIALIST. SX'D WITH MOD AMT PALE YELLOW SEMITHICK SECRETIONS. PATIENT IN CRITICAL CONDITION. AMBU BAG AT HOB. Addendum: 06/09/17 at 1205 by PANCHO SCHMITZ RT Amended: Links added.
[2017-06-09] MEDS: HYDROCODONE/APAP 5/325MG 1 EACH TABLET PO PRN ×2 (08:31→21:58)
[2017-06-09 08:42] LABS: ABG BASE EXCESS 2.1 mmol/L; ABG OXYGEN SATURATION 90.9 % (92.0-98.5); ABG PCO2 53.7 mmHg (35.0-45.0); ABG PO2 67.2 mmHg (75.0-100.0); AaDO2 592.1 mmHg; COHb 0.3 % (0.5-1.5); MetHb 0.6 % (0.0-1.5); O2Hb 90.1 % (94.0-97.0); PEEP,BG 14 cm H2O; SITE, ABG Right Radial; VENT MODE, BG AC 18 600 100%
--- NOTE | 2017-06-09 10:00 | NUR ---
RN NOTES SEEN AND EXAMINED BY IBIS GARCIA NP. AWARE OF CURRENT LAB VALUES AND CXR RESULT. PT REMAINS INTUBATED. NO RESPIRATORY DISTRESS NOTED. PT ON DIPRIVAN. SEDATION VACATION DONE. PT MOVES TO PAIN AND TRIES TO OPEN EYES. LATEST TRIGLYCERIDE LEVEL, 249. NO ORDER MADE AT THIS TIME. WILL MONITOR.
[2017-06-09] MEDS: VANCOMYCIN 1.5 GM in IV D5W 500 ML IV SCH (10:18)
[2017-06-09] MEDS ORDERED: VANCOMYCIN 500 MG in IV D5W 100 ML IV ONE (11:00)
--- NOTE | 2017-06-09 11:00 | NUR ---
RN NOTES CALLED B[place] (PHARMACIST) AND CLARIFIED NEW VANCO ORDER. VANCO LEVEL, 12. GIVEN VANCO 1.5GM FOR 0900 DOSE. HAS NEW ORDER FOR VANCO 500MG X1 AT 1100. PER [place], GIVE VANCO 500MG PER NEW DOSING.
[2017-06-09] MEDS: MORPHINE SULFATE INJ 2 MG/ML DISP.SYRIN IV PRN ×4 (11:37→21:10)
--- NOTE | 2017-06-09 12:00 | NUR ---
RN NOTES SEEN AND EXAMINED BY DR. WALLACE. AWARE OF CURRENT VENT SETTINGS AND ABG RESULT. PT ON DIPRIVAN AT 50MCG/KG/MIN. NO ORDER MADE AT THIS TIME. WILL MONITOR.
--- NOTE | 2017-06-09 13:28 | NUR ---
RN NOTES SEEN AND EXAMINED BY DR. RIVERS. NO EPISODE OF SHAKINESS NOTED. PT FOR EEG. NO ORDER MADE AT THIS TIME. WILL MONITOR.
--- NOTE | 2017-06-09 18:44 | NUR ---
RN CLOSING NOTES PT REMAINS INTUBATED. TOLERATING VENT WELL. NO RESPIRATORY DISTRESS NOTED. NO SIGNS OF PAIN NOTED. HOB ELEVATED. OG IN PLACE, CLAMPED. TAI PICC IN PLACE. ON IVF. PT ON DIPRIVAN AT 50MCG/KG/MIN. TITRATED ACCORDINGLY. FC IN PLACE. ADEQUATE OUTPUT NOTED. KEPT CLEAN AND DRY. KEPT COMFORTABLE. BLE ELEVATED. WILL ENDORSE FOR CONTINUITY OF CARE.
--- NOTE | 2017-06-09 21:10 | NUR ---
ICU/FRESCO ARTIST PT APPEARED TO BE IN PAIN, INCREASED RESPIRATION AND INCREASED HEART RATE WITH FACIAL STRAUSS. MORPHINE 2MG GIVEN IVP BY CHARGE NURSE WHEN NOTIFIED ABOUT PT CONDITION WHEN CHANGING POSITION. PT WAS TURNED AND REPOSITION FOR COMFORT AND CARE. WILL CONTINUE TO MONITOR THE PT'S PAIN.
[2017-06-09] MEDS: VANCOMYCIN 2 GM in IV D5W 500 ML IV SCH (21:16)
--- NOTE | 2017-06-09 21:38 | NUR ---
PT RECEIVED ON VENT VIA CHARTED ROUTE AND SETTINGS AMBU BAG AT BEDSIDE ALARMS SET AND AUDIBLE. VENT PLUGGED INTO RED OUTLET SUCTIONED A SMALL AMOUNT OF THICK GONZALES SECRETIONS. Addendum: 06/09/17 at 2140 by PRISCILA ALLEN RT Amended: Links added.
--- NOTE | 2017-06-09 22:10 | NUR ---
ICU/ORACLE E BUSINESS DEVELOPER RESPIRATORY THERAPIST DID CHEST CPT, PT APPEARED TO HAVE SOME DISCOMFORT ALSO UP BREATHING THE VENT GAVE NORCO 1 TAB FOR WHAT APPEARED TO BE PAIN WITH FACIAL GRIMACING. WILL CONTINUE TO MONITOR THIS PT'S PAIN
[2017-06-10] VITALS (57 sets, daily range): BP systolic 81–148; BP diastolic 36–82
--- NOTE | 2017-06-10 00:10 | NUR ---
ICU/BUILDING SPECIALIST PT APPEARED TO BE IN PAIN, INCREASED RESPIRATION AND INCREASED HEART RATE WITH FACIAL STRAUSS. MORPHINE 2MG GIVEN IVP BY CHARGE NURSE WHEN NOTIFIED ABOUT PT CONDITION WHEN CHANGING POSITION. PT WAS TURNED AND REPOSITION FOR COMFORT AND CARE. WILL CONTINUE TO MONITOR THE PT'S PAIN.
[2017-06-10] MEDS ORDERED: ACETYLCYSTEINE 20% SOLN 800 MG/4 ML VIAL ONE (00:14)
[2017-06-10] MEDS: IPRATROPIUM NEB FS 0.5 MG/2.5 ML AMPUL.NEB NEB SCH ×7 (00:16→23:50)
[2017-06-10] MEDS: ALBUTEROL FS 2.5 MG/0.5 ML VIAL.NEB NEB SCH ×7 (00:16→23:50)
[2017-06-10] MEDS: LACTULOSE 10 G/15 ML UDC (PYXIS) PO SCH ×2 (00:19→05:14)
[2017-06-10] MEDS: MORPHINE SULFATE INJ 2 MG/ML DISP.SYRIN IV PRN (00:20)
[2017-06-10] MEDS: ACETAMINOPHEN 325 MG TABLET PO PRN ×4 (00:28→18:12)
--- NOTE | 2017-06-10 00:30 | NUR ---
ICU/RETAIL MERCHANDISING SPECIALIST PT'S TEMP IS SLOWLY INCREASING, STARTED COOLING MEASURES BEFORE INCREASE TOO HIGH. TYLENOL VIA N/G TUBE. WILL CONTINUE TO MONITOR PT'S TEMP.
[2017-06-10] MEDS: IV NS 0.9% 1,000 ML IV PRN ×2 (01:36→18:46)
[2017-06-10] MEDS: PROPOFOL 100 ML IV PRN ×3 (01:36→05:21)
[2017-06-10] MEDS: HYDROCODONE/APAP 5/325MG 1 EACH TABLET PO PRN ×2 (02:37→06:49)
--- NOTE | 2017-06-10 04:55 | NUR ---
ICU/CODING QUALITY COORDINATOR ID PRODUCT MARKETING PROGRAMS MANAGER CAME WROTE ORDERS TO DO BC X 2 15 MINUTES APART FROM CENTRAL LINE IF TEMP 101.0 . PT HAD A TEMP OF 101.6. SO BC X 2 WERE DONE AT THIS TIME. WILL MONITOR THIS PT AND TEMP.
[2017-06-10] MEDS: CEFEPIME 2 GM in IV D5W 100 ML IV SCH ×3 (05:14→21:41)
[2017-06-10 05:47] LABS: CALCIUM, SERUM 7.7 mg/dL (8.5-10.1); CREATININE 0.8 mg/dL (0.6-1.3); POTASSIUM 4.1 mmol/L (3.5-5.1)
--- NOTE | 2017-06-10 06:15 | NUR ---
ICU/ELEMENTARY SECRETARY PT APPEARED TO BE IN PAIN, USING FLACC SCALE GAVE 1 TAB NORCO FOR THIS. ALSO AT THIS TIME GAVE 650MG TYLENOL FOR TEMP 101.6 FROM EARLIER. PT WAS TURNED AND REPOSITIONED FOR COMFORT AND CARE.
[2017-06-10] MEDS ORDERED: PROPOFOL 10MG/ML 50ML 50 ML IV PRN (07:30)
[2017-06-10] MEDS: ACETYLCYSTEINE 10% SOLN 400 MG/4 ML VIAL NEB SCH ×3 (07:35→23:30)
--- NOTE | 2017-06-10 07:45 | NUR ---
ICU/RN PT IS INTUBATED AC MODE.FIO2-100%,SAT O2-92-93%,PEEP-14.PT IS SEDATED ON PROPOFOL AT 50 MCG.V/S STABLE.T-101.8.BLOOD CULTURE DONE.OG TUBE CLAMPED ,IV INFUSING ORDERED.F/C DRAINING WITH NEGAR URINE.PT IS OBESE.GENERALIZED EDEMA PRESENT. MULTIPLY BLISTERS AND SKIN TEARS NOTED ALL OVER THE BODY.SUCTION PROVIDED.REPOSITION FOR COMFORT.
[2017-06-10] MEDS: ENOXAPARIN SODIUM 40 MG/0.4 ML DISP.SYRIN SQ SCH (08:25)
[2017-06-10] MEDS: CIPROFLOXACIN HCL 0.3% 5 ML BOTTLE OT SCH ×2 (08:26→16:12)
[2017-06-10] MEDS: VANCOMYCIN 2 GM in IV D5W 500 ML IV SCH ×2 (08:27→21:41)
[2017-06-10] MEDS: PROPOFOL 10MG/ML 50ML 50 ML IV PRN ×13 (08:56→22:56)
--- NOTE | 2017-06-10 09:00 | NUR ---
ICU/RN UNABLE TO PROVIDE SEDATION VACATION DUE TO PATIENT UNSTABLE CONDITION.ABG DONE PT IS AC-18,TV-650,FIO2-90%,PEEP-14.PT SAT O2-92%. TEMPERATURE INCREASED TO 102.5.MD NOTIFIED.CONTINUE MONITORING.
[2017-06-10 10:27] LABS: ABG BASE EXCESS 1.6 mmol/L; ABG OXYGEN SATURATION 90.1 % (92.0-98.5); ABG PCO2 59.7 mmHg (35.0-45.0); ABG PO2 63.5 mmHg (75.0-100.0); COHb 0.3 % (0.5-1.5); MetHb 0.5 % (0.0-1.5); O2Hb 89.4 % (94.0-97.0); PEEP,BG 14 cm H2O; SITE, ABG Right Radial; VENT MODE, BG AC 18 650 90% +14; VT, ABG 650 mL
--- NOTE | 2017-06-10 11:30 | NUR ---
ICU/RN PT HAS T-102.5.TYLENOL 650 MG VIA OG TUBE GIVEN ORDERED.COOLING BLANKET ORDERED.COOLING MEASURES PROVIDED. NOTIFIED.
[2017-06-10] MEDS: MORPHINE SULFATE INJ 4 MG/ML DISP.SYRIN IV PRN ×2 (15:08→18:12)
[2017-06-10] MEDS ORDERED: OSELTAMIVIR PHOSPHATE 75 MG CAPSULE PO SCH (17:00)
--- NOTE | 2017-06-10 18:16 | NUR ---
PT RECEIVED INTUBATED WITH 8.0 ETT SECURED AT 26CM AT THE LIP. TOLERATING VENT SETTINGS. NO RESP DISTRESS. SX'D FOR MOD AMT OF THICK YELLOW SECRETIONS. VENT ALARMS SET AND AUDIBLE. AMBU BAG AT BEDSIDE. VENT PLUGGED INTO RED OUTLET. WILL CONTINUE TO MONITOR Addendum: 06/10/17 at 1816 by MALCOLM DEGROOT RT Amended: Links added.
--- NOTE | 2017-06-10 19:49 | NUR ---
LIBRARY INFORMATION TECHNICIAN. INITIAL ASSESSMENT. RECEIVED THE PT REST ON THE BED. ORALLY INTUBATED. SEDATED WITH DIPRIVAN. ETT8,LIP 26,AC 16,TV 650,FIO2 90%,PEEP 14, SAT 98%. ARTIFICIAL FLOWERS STARCHER SHOWING NSR. IV LT UPPER ARM PICC LINE NS 75ML/H,DIPRIVAN 50MCG/KG/MIN,OGT INTACT. FC PATENT. TURN AND REPOSITION .WILL CONTINUE TO MONITOR VITALS.
[2017-06-10] MEDS ORDERED: NOREPINEPHRINE 4 MG/4 ML AMPUL IV ONE (20:48)
--- NOTE | 2017-06-10 21:26 | NUR ---
PT RECEIVED ON VENT VIA CHARTED SETTINGS AND ROUTE. TOLERATING VENT SETTINGS. AMBU BAG AT BEDSIDE, ALARMS SET AND AUDIBLE. VENT PLUGGED INTO RED OUTLET. NO RESP DISTRESS NOTED. WILL CONTINUE TO MONITOR Addendum: 06/10/17 at 2129 by PRISCILA ALLEN RT Amended: Links added.
--- NOTE | 2017-06-10 21:31 | NUR ---
CARGO INSPECTOR. BLOOD PRESSURE 80/45. LEVOPHED STARTED PER PROTOCOL
[2017-06-10] MEDS ORDERED: MEROPENEM 1 G VIAL IV ONE (22:59)
[2017-06-10] MEDS: MEROPENEM 1 G in IV NS 0.9% 100 ML IV SCH (23:16)
[2017-06-11] VITALS (61 sets, daily range): BP systolic 66–140; BP diastolic 38–96
[2017-06-11] MEDS: PROPOFOL 10MG/ML 50ML 50 ML IV PRN ×17 (00:49→23:21)
[2017-06-11] MEDS: MORPHINE SULFATE INJ 4 MG/ML DISP.SYRIN IV PRN (02:57)
[2017-06-11] MEDS: ACETAMINOPHEN 325 MG TABLET PO PRN ×2 (02:58→18:14)
[2017-06-11] MEDS: ALBUTEROL FS 2.5 MG/0.5 ML VIAL.NEB NEB SCH ×6 (03:46→21:01)
[2017-06-11] MEDS: IPRATROPIUM NEB FS 0.5 MG/2.5 ML AMPUL.NEB NEB SCH ×6 (03:46→21:01)
[2017-06-11 05:23] LABS: CALCIUM, SERUM 8.1 mg/dL (8.5-10.1); CREATININE 0.7 mg/dL (0.6-1.3); POTASSIUM 4.8 mmol/L (3.5-5.1)
--- NOTE | 2017-06-11 05:44 | NUR ---
TRACK LAYING EQUIPMENT OPERATOR. AM CARE, ORAL CARE, BED BATH GIVEN. LINEN CHANGED, REMAINING SAME VENT SETTING TOLERATED WELL. SAT 99%, CARDIAC MONIWILL CONTINUE TO MONITOR VITALS.TOR SHOWING S TACH. IV RT ILNS 250ML/H,INSULIN DRIP PER ACCU CHECK. DIPRIVAN 50MCG/KG/MIN. FC PATENT. HOB ELEVATED. TURN AND REPOSITION Q2H. WILL CONTINUE TO [id number] VITALS. Addendum: 06/11/17 at 0552 by TANNER CORONEL RN WRONG INFORMATION.
--- NOTE | 2017-06-11 05:52 | NUR ---
BABY FORMULA MIXER. AM CARE. ORAL CARE, BED BATH GIVEN. LINEN CHANGED REMAINING SAME VENT SETTINGS, AFEBRILE. ASSEMBLY LEADER SHOWING NSR.FC PATENT. IV LT UPPER ARM PICC LINE. IVF NS 75ML/H LEVOPHED 6MCG,KG,MIN,OGT CLAMPED. WILL CONTINUE TO MONITOR VITALS.
[2017-06-11] MEDS ORDERED: MEROPENEM 1 G VIAL IV ONE (05:56)
[2017-06-11] MEDS: MEROPENEM 1 G in IV NS 0.9% 100 ML IV SCH ×3 (06:10→20:37)
[2017-06-11] MEDS: ACETYLCYSTEINE 10% SOLN 400 MG/4 ML VIAL NEB SCH ×3 (07:35→23:30)
[2017-06-11] MEDS: VANCOMYCIN 2 GM in IV D5W 500 ML IV SCH ×2 (08:57→21:32)
[2017-06-11] MEDS: CIPROFLOXACIN HCL 0.3% 5 ML BOTTLE OT SCH ×2 (08:58→17:46)
[2017-06-11 09:01] LABS: ABG BASE EXCESS 0.3 mmol/L; ABG OXYGEN SATURATION 95.3 % (92.0-98.5); ABG PCO2 59.7 mmHg (35.0-45.0); ABG PH 7.295 (7.350-7.450); ABG PO2 78.7 mmHg (75.0-100.0); AaDO2 392.6 mmHg; COHb 0.5 % (0.5-1.5); MetHb 0.5 % (0.0-1.5); O2Hb 94.3 % (94.0-97.0); PEEP,BG 14 cm H2O; SITE, ABG Right Radial; VT, ABG 650 mL
[2017-06-11] MEDS: ENOXAPARIN SODIUM 40 MG/0.4 ML DISP.SYRIN SQ SCH (09:02)
--- NOTE | 2017-06-11 09:37 | NUR ---
GOLF SALES ASSOCIATE. VENT SETTINGS FIO2 75%. SAT 96. WILL CONTINUE TO MONITOR.
[2017-06-11] MEDS ORDERED: FIBERSOURCE HN 1,000 ML BOTTLE GT PRN (10:00)
[2017-06-11] MEDS: IV NS 0.9% 1,000 ML IV PRN (10:28)
[2017-06-11] MEDS: PROSOURCE / PROSTAT (PYXIS) 30 ML UDC GT SCH ×2 (11:21→17:45)
[2017-06-11] MEDS: MULTIVITAMINS,THERAGRAN 1 UDTAB TABLET PO SCH (11:55)
--- NOTE | 2017-06-11 13:30 | NUR ---
CLIENT TECHNICAL SPECIALISTRN. GARCIA AT BED SIDE ASSESS THE PT. UPDATE GIVEN. BAILEY CONTINUE TO MONITOR.
--- NOTE | 2017-06-11 13:32 | NUR ---
PRINTS AND DRAWINGS CURATOR. LEVOPHED OFF AT 06/11/17..WILL CONTINUE TO MONITOR.
--- NOTE | 2017-06-11 17:04 | NUR ---
PT REMAINS ORALLY INTUBATED ON ORDERED SETTINGS ALARMS SET AND AUDIBLE B/S EQUAL. MOD. PALE YELLOW SPUTUM FIO2 DECREASED TO 75%. AMBUBAG AT HEAD OF BED Addendum: 06/11/17 at 1706 by MALCOLM DEGROOT RT Amended: Links added.
--- NOTE | 2017-06-11 17:54 | NUR ---
SLIP CASTER. ORAL CARE, BED BATH GIVEN. DIPRIVAN 40MCG/KG/MIN, NS 75ML/H, HOB ELEVATED. FC PATENT. REMAINING SAME VENT SETTING, OGT FEEDING TOLERATED WELL. WILL CONTINUE TO MONITOR VITALS.
--- NOTE | 2017-06-11 19:30 | NUR ---
RN INITIAL NOTE RECEIVED PT SEDATED ON BED WITH DIPRIVAN @ 40MCG/KG/MIN. INTUBATED AND ON VENT WITH SETTINGS AC 16, TV 650, FIO2 75%, PEEP 14, ETT 8@LIP, SATURATING WELL, NO S/S OF RESP DISTRESS. CURRENTLY SR ON THE MONITOR, HR 90'S. NEWELL INTACT. OGT ON FIBERSOURCE FEEDING @ 40MLS/HR, NO RESIDUALS, TOLERATING WELL. LEFT UPPER ARM PICC WITH NS @ 75MLS/HR, FLUSHED AND PATENT, NO S/S OF INFILTRATION/INFECTION, DRESSING CDI. BED LOW AND LOCKED, SIDERAILS UP, CALL LIGHT WITHIN REACH. WILL MONITOR
--- NOTE | 2017-06-11 22:01 | NUR ---
PT RECEIVED ON VENT VIA CHARTED SETTINGS AND ROUTE. TOLERATING VENT SETTINGS. AMBU BAG AT BEDSIDE, ALARMS SET AND AUDIBLE. VENT PLUGGED INTO RED OUTLET. NO RESP DISTRESS NOTED. WILL CONTINUE TO MONITOR Addendum: 06/11/17 at 2201 by PRISCILA ALLEN RT Amended: Links added.
[2017-06-12] VITALS (35 sets, daily range): BP systolic 115–139; BP diastolic 62–92
[2017-06-12] MEDS: ALBUTEROL FS 2.5 MG/0.5 ML VIAL.NEB NEB SCH ×7 (00:16→23:12)
[2017-06-12] MEDS: IPRATROPIUM NEB FS 0.5 MG/2.5 ML AMPUL.NEB NEB SCH ×7 (00:16→23:12)
[2017-06-12] MEDS: PROPOFOL 10MG/ML 50ML 50 ML IV PRN ×14 (00:28→23:03)
[2017-06-12 03:04] LABS: APPEARANCE,URINE CLOUDY (CLEAR); BILIRUBIN,URINE 1+ (NEGATIVE); BLOOD, URINE TRACE-INTA Ery/uL (NEGATIVE); COLOR,URINE YELLOW (YELLOW); KETONES,URINE NEGATIVE (NEGATIVE); LEUKOCYTE ESTERASE ,URINE NEGATIVE (NEGATIVE); NITRITE, URINE NEGATIVE (NEGATIVE); PH,URINE 6.5 (5.0-8.0); PROTEIN,URINE TRACE mg/dl (NEGATIVE); UGLUCOSE NEGATIVE (NEGATIVE)
[2017-06-12 03:12] LABS: BACTERIA,URINE Rare /HPF (None Seen); RBC,URINE 0-2 /HPF (0-2); SQUAMOUS EPITHELIAL CELL,UR Rare /HPF (None Seen)
[2017-06-12 03:13] LABS: URINE AMORPHOUS URATE Few /HPF (None Seen)
[2017-06-12] MEDS: ACETAMINOPHEN 325 MG TABLET PO PRN ×2 (04:49→21:51)
[2017-06-12] MEDS: MEROPENEM 1 G in IV NS 0.9% 100 ML IV SCH ×3 (04:50→20:16)
[2017-06-12] MEDS: IV NS 0.9% 1,000 ML IV PRN (04:51)
[2017-06-12 06:06] LABS: CALCIUM, SERUM 8.3 mg/dL (8.5-10.1); CREATININE 0.6 mg/dL (0.6-1.3); POTASSIUM 4.6 mmol/L (3.5-5.1)
--- NOTE | 2017-06-12 06:30 | NUR ---
RN CLOSING NOTE PT REMAINS STABLE OF THE MOMENT. ALL DUE MEDS GIVEN, AM CARE PROVIDED. WILL ENDORSE KAELA TO AM RN
[2017-06-12] MEDS: ACETYLCYSTEINE 10% SOLN 400 MG/4 ML VIAL NEB SCH ×3 (07:07→23:07)
--- NOTE | 2017-06-12 07:34 | NUR ---
LAW WRITER RECEIVED PATIENT FROM THE PREVIOUS SHIFT. PATIENT IS IN BED. RESTING COMFORTABLY. NO ACUTE DISTRESS NOTED. EVEN AND NON LABORED BREATHING PATTERN. SEDATED ON DIPRIVAN. VENT SETTINGS REVIEWED AND VERIFIED. TURNED AND REPOSITIONED FOR COMFORT AND WOUND PREVENTION. WILL CONTINUE TO MONITOR AND PROVIDE CARE.
--- NOTE | 2017-06-12 07:39 | NUR ---
RT NOTE CPT PERFORMED ON PT PRESCRIBED. PT STABLE. NO DISTRESS NOTED. Addendum: 06/12/17 at 0740 by HANNAH WHEELER RT Amended: Links added.
[2017-06-12] MEDS: CIPROFLOXACIN HCL 0.3% 5 ML BOTTLE OT SCH ×2 (09:29→17:47)
[2017-06-12 09:34] LABS: BASOPHILS # (AUTO) 0.1 /CMM (0.0-0.2); BASOPHILS % (AUTO) 0.8 % (0.0-2.0); EOSINOPHILS # (AUTO) 0.4 /CMM (0.0-0.7); EOSINOPHILS % (AUTO) 3.9 % (0.0-6.0); HEMATOCRIT 46 % (39-51); HEMOGLOBIN 15.1 g/dL (13.5-17.5); LYMPHOCYTES # (AUTO) 0.9 /CMM (0.8-4.8); LYMPHOCYTES % (AUTO) 9.1 % (20.0-44.0); MEAN CORPUSCULAR HEMOGLOBIN 27 PG (26.0-33.0); MEAN CORPUSCULAR HGB CONC 33 g/dl (31.0-36.0); MEAN CORPUSCULAR VOLUME 82 fL (80-96); MONOCYTES # (AUTO) 0.8 /CMM (0.1-1.30); MONOCYTES % (AUTO) 8.4 % (2.0-12.0); NEUTROPHILS # (AUTO) 7.6 /CMM (1.8-8.9); NEUTROPHILS % (AUTO) 77.8 % (43.0-81.0); PLATELET COUNT (AUTO) 182 /CMM (150-450); RDW COEFFICIENT OF VARIATION 14.9 (11.5-15.0); RED BLOOD CELL COUNT(AUTO) 5.62 MIL/uL (4.5-6.0); WHITE BLOOD COUNT (AUTO) 9.8 K/uL (4.3-11.0)
[2017-06-12] MEDS: MULTIVITAMINS,THERAGRAN 1 UDTAB TABLET PO SCH (09:35)
[2017-06-12] MEDS: VANCOMYCIN 2 GM in IV D5W 500 ML IV SCH ×2 (09:35→21:15)
[2017-06-12] MEDS: ENOXAPARIN SODIUM 40 MG/0.4 ML DISP.SYRIN SQ SCH (09:39)
[2017-06-12] MEDS: PROSOURCE / PROSTAT (PYXIS) 30 ML UDC GT SCH ×2 (09:41→17:46)
[2017-06-12 12:53] LABS: BAND % (MANUAL) 17 % (0.0-5.0); EOSINOPHILS % (MANUAL) 4 % (0-4); LYMPHOCYTES % (MANUAL) 9 % (16-48); MONOCYTES % (MANUAL) 4 % (0-11.0); NEUTROPHILS % (MANUAL) 66 (42-76)
[2017-06-12] MEDS: FIBERSOURCE HN 1,000 ML BOTTLE GT PRN (17:46)
--- NOTE | 2017-06-12 17:54 | NUR ---
RT NOTE PT REMAINS INTUBATED WITH 8.0 ETT 26 CM AT LIP. SETTINGS PRESCRIBED. ALARMS SET PER PROTOCOL AND AUDIBLE. VENT PLUGGED IN TO RED OUTLET. CPT PERFORMED Q4HR FOLLOWED BY SX. SMALL AMOUNT THIN PALE YELLOW SECRETIONS FOUND UPON SUCTION. AMBU BAG AT BED SIDE. NO DISTRESS NOTED. Addendum: 06/12/17 at 1756 by HANNAH WHEELER RT Amended: Links added.
[2017-06-12 18:32] LABS: ABG BASE EXCESS 4.2 mmol/L; ABG OXYGEN SATURATION 97.2 % (92.0-98.5); ABG PH 7.338 (7.350-7.450); ABG PO2 102.3 mmHg (75.0-100.0); AaDO2 367.6 mmHg; COHb 0.1 % (0.5-1.5); MetHb 0.4 % (0.0-1.5); O2Hb 96.7 % (94.0-97.0); PEEP,BG 14 cm H2O; SITE, ABG Right Radial; VENT MODE, BG AC 26 650 75% +14; VT, ABG 650 mL
--- NOTE | 2017-06-12 20:23 | NUR ---
PT RECEIVED INTUBATED WITH 8.0 ETT SECURED AT 26CM AT THE LIP. PT TOLERATING VENT SETTINGS. DM BREATH SOUNDS. SX'D FOR MOD AMT OF THICK PALE SECRETIONS. VENT ALARMS SET AND AUDIBLE. AMBU BAG AT BEDSIDE. VENT PLUGGED INTO RED OUTLET. WILL CONTINUE TO MONITOR. Addendum: 06/12/17 at 2024 by AKBAR HENRIQUEZ RT Amended: Links added.
[2017-06-13] VITALS (37 sets, daily range): BP systolic 78–139; BP diastolic 49–95
[2017-06-13] MEDS: PROPOFOL 10MG/ML 50ML 50 ML IV PRN ×22 (00:31→23:45)
[2017-06-13] MEDS: ALBUTEROL FS 2.5 MG/0.5 ML VIAL.NEB NEB SCH ×6 (03:06→23:18)
[2017-06-13] MEDS: IPRATROPIUM NEB FS 0.5 MG/2.5 ML AMPUL.NEB NEB SCH ×6 (03:06→23:18)
--- NOTE | 2017-06-13 04:00 | NUR ---
RN NOTES REMOVED COOLING BLANKET PATIENT CORE TEMP IS WNL. WILL CONTINUE TO MONITOR
[2017-06-13] MEDS: IV NS 0.9% 1,000 ML IV PRN (04:10)
[2017-06-13] MEDS: MEROPENEM 1 G in IV NS 0.9% 100 ML IV SCH ×3 (04:28→20:03)
[2017-06-13 05:20] LABS: BASOPHILS % (AUTO) 0.5 % (0.0-2.0); EOSINOPHILS # (AUTO) 0.4 /CMM (0.0-0.7); EOSINOPHILS % (AUTO) 6.2 % (0.0-6.0); HEMATOCRIT 43 % (39-51); LYMPHOCYTES # (AUTO) 0.8 /CMM (0.8-4.8); LYMPHOCYTES % (AUTO) 12.3 % (20.0-44.0); MEAN CORPUSCULAR HEMOGLOBIN 28 PG (26.0-33.0); MEAN CORPUSCULAR HGB CONC 33 g/dl (31.0-36.0); MEAN CORPUSCULAR VOLUME 84 fL (80-96); MONOCYTES # (AUTO) 0.8 /CMM (0.1-1.30); MONOCYTES % (AUTO) 11.1 % (2.0-12.0); NEUTROPHILS # (AUTO) 4.7 /CMM (1.8-8.9); NEUTROPHILS % (AUTO) 69.9 % (43.0-81.0); PLATELET COUNT (AUTO) 219 /CMM (150-450); RDW COEFFICIENT OF VARIATION 16.2 (11.5-15.0); RED BLOOD CELL COUNT(AUTO) 5.09 MIL/uL (4.5-6.0); WHITE BLOOD COUNT (AUTO) 6.8 K/uL (4.3-11.0)
[2017-06-13 05:22] LABS: CALCIUM, SERUM 8.4 mg/dL (8.5-10.1); CREATININE 0.5 mg/dL (0.6-1.3); POTASSIUM 4.4 mmol/L (3.5-5.1)
--- NOTE | 2017-06-13 06:30 | NUR ---
RN CLOSING NOTE PT REMAINS STABLE OF THE MOMENT. ALL DUE MEDS GIVEN, AM CARE PROVIDED. WILL ENDORSE KAELA TO AM RN
[2017-06-13] MEDS: ACETYLCYSTEINE 10% SOLN 400 MG/4 ML VIAL NEB SCH ×3 (07:35→23:18)
--- NOTE | 2017-06-13 07:53 | NUR ---
RT PATIENT REC'D ORALLY INTUBATED WITH A 8.0 ETT SECURED AT 26CM MID LIP VIA ANCHOR FAST. ON [facility] VENT WITH SETTINGS SET BY MD GEE STALEY. VENT ALARMS CHECKED + AUDIBLE. CUFF PRESSURE CHECKED PALLET RECTIFIER. SX'D WITH MOD AMT PALE SEMITHICK SECRETIONS. B/S DIMINISHED. AMBU BAG AT [facility]. CONT CURRENT PLAN OF RESP CARE. FIO2 TITRATED TO 60% Addendum: 06/13/17 at 1144 by PANCHO SCHMITZ RT Amended: Links added.
--- NOTE | 2017-06-13 08:00 | NUR ---
BILLET DRILLER RECEIVED PT SEDATED ON DIPRIVAN DRIP. ETT INTACT CONNECTED TO VENT. OGT INTACT WITH TUBE FEEDING BEING INFUSED. RESIDUALS APPROX 50 ML. ON BARIATRIC BED.
[2017-06-13 08:46] LABS: ABG BASE EXCESS 2.3 mmol/L; ABG OXYGEN SATURATION 93.2 % (92.0-98.5); ABG PCO2 53.6 mmHg (35.0-45.0); ABG PH 7.352 (7.350-7.450); ABG PO2 69.4 mmHg (75.0-100.0); AaDO2 299.4 mmHg; COHb 0.4 % (0.5-1.5); MetHb 0.4 % (0.0-1.5); O2Hb 92.5 % (94.0-97.0); PEEP,BG 14 cm H2O; SITE, ABG Right Radial
[2017-06-13] MEDS ORDERED: LORAZEPAM INJ 2 MG/ML VIAL IV ONE (09:00)
--- NOTE | 2017-06-13 09:00 | NUR ---
CONVERTING TECHNICIAN DR WALLACE IN TO SEE PT. NOTED PT HAVING SEIZURES INVOLVING ENTIRE BODY. ATIVAN GIVEN ORDERED BY DR WALLACE.
[2017-06-13] MEDS: MULTIVITAMINS,THERAGRAN 1 UDTAB TABLET PO SCH (09:03)
[2017-06-13] MEDS: PROSOURCE / PROSTAT (PYXIS) 30 ML UDC GT SCH ×2 (09:03→16:09)
[2017-06-13] MEDS: VANCOMYCIN 2 GM in IV D5W 500 ML IV SCH ×2 (09:03→21:40)
[2017-06-13] MEDS: LACTOBACILLUS RHAMNOSUS GG 1 EACH CAP.SPRINK PO SCH ×2 (09:03→16:09)
[2017-06-13] MEDS: ENOXAPARIN SODIUM 40 MG/0.4 ML DISP.SYRIN SQ SCH (09:04)
[2017-06-13] MEDS: CIPROFLOXACIN HCL 0.3% 5 ML BOTTLE OT SCH ×2 (09:06→16:10)
--- NOTE | 2017-06-13 10:00 | NUR ---
DUPLICATOR PUNCH OPERATOR NO FURTHER SEIZURES SEEN. WILL MONITOR. PT BECAME TACHYPNEIC AND AGITATED WITH DECREASED DOSE OF DIPRIVAN. CURRENTLY AT 40 MCG/KG/HOUR.
[2017-06-13] MEDS: FUROSEMIDE 40 MG/4 ML VIAL IV SCH ×2 (11:10→16:09)
--- NOTE | 2017-06-13 11:21 | NUR ---
SENIOR PRODUCT CONSULTANT RECEIVED PATIENT ON MECHANICAL VENTILATORY ON DIPRIVAN SEDATION AFEBRILE MAINTAINED ON IVF THERAPY MONITORED CLOSELY MONITORED FOR INCREASED OF BODY TEMPERATURE WITH NEWELL CATHETER DRAINING AT LOW OUTPUT, MD IS AWARE
--- NOTE | 2017-06-13 19:30 | NUR ---
RN INITIAL NOTE RECEIVED PT SEDATED ON BED WITH DIPRIVAN @ 50MCG/KG/MIN. INTUBATED AND ON VENT WITH SETTINGS AC 16, TV 650, FIO2 75%, PEEP 14, ETT 8/26@LIP, SATURATING WELL, NO S/S OF RESP DISTRESS. CURRENTLY SR ON THE MONITOR, HR 70'S. NEWELL INTACT. OGT ON FIBERSOURCE FEEDING @ 40MLS/HR, NO RESIDUALS, TOLERATING WELL. LEFT UPPER ARM PICC WITH NS @ 75MLS/HR, FLUSHED AND PATENT, NO S/S OF INFILTRATION/INFECTION, DRESSING CDI. BED LOW AND LOCKED, SIDERAILS UP, CALL LIGHT WITHIN REACH. WILL MONITOR Addendum: 06/13/17 at 1943 by GAMALIEL GOMEZ RN NS RUNNING TKO ON LEFT UPPER ARM PICC.
--- NOTE | 2017-06-13 19:55 | NUR ---
RN NOTES NOTICED PATIENT WITH CONTINUOUS HEAD JERKING BUT WITH NO CHANGES IN PATIENT VITAL SIGNS. ORTHOTIC FINISH GRINDING TECHNICIAN NOTIFIED. PER AM REPORT, PATIENT WAS GIVEN PRN ATIVAN FOR THE SAME OCCURRENCE FOR POSSIBLE SEIZURES. WILL NOTIFY
[2017-06-13] MEDS: LORAZEPAM INJ 2 MG/ML VIAL IV PRN (20:04)
--- NOTE | 2017-06-13 20:20 | NUR ---
RN NOTES HEAD JERKING NOTED TO LAST > 2MIN. PER MD NOTES, SEIZURE LIKE ACTIVITY IS ALREADY KNOWN FOR THE PATIENT. PRN ATIVAN 2MG IV GIVEN. ALL VITALS STABLE
--- NOTE | 2017-06-13 21:35 | NUR ---
PT RECEIVED INTUBATED WITH 8.0 ETT SECURED AT 26CM AT THE LIP. PT TOLERATING VENT SETTINGS. DM BREATH SOUNDS. SX'D FOR MOD AMT OF THICK PALE SECRETIONS. VENT ALARMS SET AND AUDIBLE. AMBU BAG AT BEDSIDE. VENT PLUGGED INTO RED OUTLET. WILL CONTINUE TO MONITOR. Addendum: 06/13/17 at 2135 by AKBAR HENRIQUEZ RT Amended: Links added.
[2017-06-13] MEDS: FIBERSOURCE HN 1,000 ML BOTTLE GT PRN (21:46)
[2017-06-13] MEDS: ACETAMINOPHEN 325 MG TABLET PO PRN (22:30)
--- NOTE | 2017-06-13 22:30 | NUR ---
RN NOTES NOTICED PATIENT TO BE AWAKE, WITH INCREASING AND LABORED BREATHING, INCREASING HR AND TEMP. NOTIFIED RT SARAH ABOUT BREATHING STATUS AND HE CONFIRMED THAT PATIENT IS AWAKE ENOUGH TO FIGHT THE VENT. RE-APPLIED COOLING BLANKET TO CONTROL PATIENT TEMP. ALSO NOTIFIED DR DE LA ROSA FOR THE NEED TO INCREASE DIPRIVAN MAX RATE TO 100MCG/KG/HR. INCREASED RATE PER MD ORDER TO ACHIEVE APPROPRIATE SEDATION.
[2017-06-14] VITALS (37 sets, daily range): BP systolic 102–133; BP diastolic 51–81
[2017-06-14] MEDS: PROPOFOL 10MG/ML 50ML 50 ML IV PRN ×25 (00:39→23:49)
[2017-06-14] MEDS: ALBUTEROL FS 2.5 MG/0.5 ML VIAL.NEB NEB SCH ×6 (03:12→23:23)
[2017-06-14] MEDS: IPRATROPIUM NEB FS 0.5 MG/2.5 ML AMPUL.NEB NEB SCH ×6 (03:12→23:23)
[2017-06-14] MEDS: MEROPENEM 1 G in IV NS 0.9% 100 ML IV SCH ×3 (04:41→20:44)
[2017-06-14 05:27] LABS: BASOPHILS % (AUTO) 0.7 % (0.0-2.0); EOSINOPHILS # (AUTO) 0.6 /CMM (0.0-0.7); HEMATOCRIT 39 % (39-51); HEMOGLOBIN 12.8 g/dL (13.5-17.5); LYMPHOCYTES # (AUTO) 0.8 /CMM (0.8-4.8); LYMPHOCYTES % (AUTO) 15.5 % (20.0-44.0); MEAN CORPUSCULAR HEMOGLOBIN 27 PG (26.0-33.0); MEAN CORPUSCULAR HGB CONC 33 g/dl (31.0-36.0); MEAN CORPUSCULAR VOLUME 82 fL (80-96); MONOCYTES # (AUTO) 0.7 /CMM (0.1-1.30); MONOCYTES % (AUTO) 12.2 % (2.0-12.0); NEUTROPHILS # (AUTO) 3.2 /CMM (1.8-8.9); NEUTROPHILS % (AUTO) 59.6 % (43.0-81.0); PLATELET COUNT (AUTO) 281 /CMM (150-450); RDW COEFFICIENT OF VARIATION 15.1 (11.5-15.0); WHITE BLOOD COUNT (AUTO) 5.4 K/uL (4.3-11.0)
[2017-06-14 05:31] LABS: CALCIUM, SERUM 8.4 mg/dL (8.5-10.1); CREATININE 0.6 mg/dL (0.6-1.3)
--- NOTE | 2017-06-14 06:30 | NUR ---
RN CLOSING NOTE PT REMAINS STABLE OF THE MOMENT. ALL DUE MEDS GIVEN, AM CARE PROVIDED. WILL ENDORSE KAELA TO AM RN
[2017-06-14] MEDS: ACETYLCYSTEINE 10% SOLN 400 MG/4 ML VIAL NEB SCH ×3 (07:11→23:23)
--- NOTE | 2017-06-14 07:30 | NUR ---
DECK MECHANIC RECEIVED PATIENT ON DIPRIVAN SEDATION @ 50 MCGS STILL ON MECHANICAL VENTILATORY SUPPORT SATURATING WELL AFEBRILE VITAL SIGNS STABLE SUCTIONED SECRETION BOTH MOUTH AND ET AT MODERATE AMOUNT, TENACIOUS AND WHITISH TO LIGHT YELLOW IN COLOR CPT DONE BY RT FEEDING TUBE AT 40 ML MONITORED ACCURATELY
[2017-06-14] MEDS ORDERED: FUROSEMIDE 40 MG/4 ML VIAL IV ONE (08:30)
[2017-06-14] MEDS: PROSOURCE / PROSTAT (PYXIS) 30 ML UDC GT SCH ×3 (08:41→16:08)
[2017-06-14] MEDS: ENOXAPARIN SODIUM 40 MG/0.4 ML DISP.SYRIN SQ SCH (08:41)
[2017-06-14] MEDS: MULTIVITAMINS,THERAGRAN 1 UDTAB TABLET PO SCH (08:42)
[2017-06-14] MEDS: LACTOBACILLUS RHAMNOSUS GG 1 EACH CAP.SPRINK PO SCH ×2 (08:42→16:08)
[2017-06-14] MEDS: CIPROFLOXACIN HCL 0.3% 5 ML BOTTLE OT SCH ×2 (08:42→16:09)
[2017-06-14] MEDS: VANCOMYCIN 2 GM in IV D5W 500 ML IV SCH ×2 (08:43→20:44)
[2017-06-14] MEDS ORDERED: FUROSEMIDE IV ONE ×2 (09:00→12:00)
[2017-06-14] MEDS ORDERED: NS 0.9% IV ONE ×2 (09:00→12:00)
[2017-06-14 09:03] LABS: ABG BASE EXCESS 6.9 mmol/L; ABG OXYGEN SATURATION 95.3 % (92.0-98.5); ABG PCO2 55.8 mmHg (35.0-45.0); ABG PH 7.396 (7.350-7.450); ABG PO2 83.7 mmHg (75.0-100.0); AaDO2 282.7 mmHg; COHb 0.3 % (0.5-1.5); MetHb 0.5 % (0.0-1.5); O2Hb 94.5 % (94.0-97.0); PEEP,BG 14 cm H2O; SITE, ABG Right Radial; VENT MODE, BG AC 16 650 60% +14; VT, ABG 650 mL
--- NOTE | 2017-06-14 09:54 | NUR ---
RT NOTE PT RECEIVED MECHANICALLY VENTILATED VIA 8.0 ETT 26 CM AT LIP. SETTINGS PRESCRIBED AC 16 650 60% +14. BILATERAL CHEST RISE NOTED. ALARMS SET PER PROTOCOL AND AUDIBLE. VENT PLUGGED IN TO RED OUTLET. AMBU BAG AT BED SIDE. NO DISTRESS NOTED. WILL CONTINUE TO MONITOR. Addendum: 06/14/17 at 0956 by HANNAH WHEELER RT Amended: Links added.
--- NOTE | 2017-06-14 11:00 | NUR ---
ASSISTANT BOYS TRACK COACH CONSERVATOR, SOPHIA CAME IN TO TALK TO THE DOCTOR TALKED TO HER ALSO AND GAVE HER SHORT DETAILS ABPUT PATIENT'S STATUS DR. WALLACE TALKED WITH THE CONSERVATOR
[2017-06-14] MEDS: ACETAMINOPHEN 325 MG TABLET PO PRN (13:00)
--- NOTE | 2017-06-14 13:59 | NUR ---
RT NOTE PT FIO2 TITRATED DOWN TO 50% PER MD WALLACE VERBAL ORDER. RN NOTIFIED. Addendum: 06/14/17 at 1400 by HANNAH WHEELER RT Amended: Links added.
--- NOTE | 2017-06-14 18:09 | NUR ---
PAPER CAP MACHINE OPERATOR REPEAT EEG DONE PER MD ORDER NEGATIVE FOR SEIZURE ACTIVITY ENDORSED TO NOD
--- NOTE | 2017-06-14 18:59 | NUR ---
PT RECEIVED INTUBATED WITH 8.0 ETT SECURED AT 26CM AT THE LIP. PT TOLERATING VENT SETTINGS. DM BREATH SOUNDS. SX'D FOR MOD AMT OF THICK PALE SECRETIONS. VENT ALARMS SET AND AUDIBLE. AMBU BAG AT BEDSIDE. VENT PLUGGED INTO RED OUTLET. WILL CONTINUE TO MONITOR. Addendum: 06/14/17 at 1859 by FARIHA WADE RT Amended: Links added.
[2017-06-15] VITALS (52 sets, daily range): BP systolic 110–171; BP diastolic 57–113
[2017-06-15] MEDS: PROPOFOL 10MG/ML 50ML 50 ML IV PRN ×19 (00:55→22:02)
[2017-06-15] MEDS: IPRATROPIUM NEB FS 0.5 MG/2.5 ML AMPUL.NEB NEB SCH ×6 (03:00→22:52)
[2017-06-15] MEDS: ALBUTEROL FS 2.5 MG/0.5 ML VIAL.NEB NEB SCH ×6 (03:01→22:52)
[2017-06-15] MEDS: FIBERSOURCE HN 1,000 ML BOTTLE GT PRN (04:00)
[2017-06-15] MEDS: MEROPENEM 1 G in IV NS 0.9% 100 ML IV SCH ×3 (04:25→20:33)
[2017-06-15] MEDS ORDERED: PROPOFOL 100 ML ONE (05:33)
[2017-06-15 05:36] LABS: BASOPHILS % (AUTO) 0.6 % (0.0-2.0); EOSINOPHILS # (AUTO) 1.1 /CMM (0.0-0.7); EOSINOPHILS % (AUTO) 16.6 % (0.0-6.0); HEMATOCRIT 42 % (39-51); HEMOGLOBIN 13.6 g/dL (13.5-17.5); LYMPHOCYTES # (AUTO) 1.1 /CMM (0.8-4.8); LYMPHOCYTES % (AUTO) 15.9 % (20.0-44.0); MEAN CORPUSCULAR HEMOGLOBIN 27 PG (26.0-33.0); MEAN CORPUSCULAR HGB CONC 33 g/dl (31.0-36.0); MEAN CORPUSCULAR VOLUME 82 fL (80-96); MONOCYTES # (AUTO) 0.7 /CMM (0.1-1.30); MONOCYTES % (AUTO) 10.7 % (2.0-12.0); NEUTROPHILS % (AUTO) 56.2 % (43.0-81.0); PLATELET COUNT (AUTO) 337 /CMM (150-450); RDW COEFFICIENT OF VARIATION 15.2 (11.5-15.0); RED BLOOD CELL COUNT(AUTO) 5.09 MIL/uL (4.5-6.0); WHITE BLOOD COUNT (AUTO) 6.9 K/uL (4.3-11.0)
[2017-06-15 05:40] LABS: CALCIUM, SERUM 8.4 mg/dL (8.5-10.1); CREATININE 0.6 mg/dL (0.6-1.3); POTASSIUM 3.3 mmol/L (3.5-5.1)
[2017-06-15] MEDS: ACETYLCYSTEINE 10% SOLN 400 MG/4 ML VIAL NEB SCH ×3 (07:35→22:52)
--- NOTE | 2017-06-15 08:00 | NUR ---
CHART CALCULATOR: pt. is sedated with Diprivan 40 mcg/kg/m, rest, can open eyes with touch/pain, no tracking contact, SR, SBP over 90, no Sz activity per report, O2 sat. over 94%, peep 14, GTF residual WNL, no restraints now
--- NOTE | 2017-06-15 08:30 | NUR ---
ACCESS RN: pt.can open eyes spont. now for seconds, on 40 mcg Diprivan gtt, rest, no SOB, short eyes contact+, unable follow commands, is in room, updated with pt.condition, VS, ordered: peep 12, ABG in 1hr, pt.is under monitoring for neuro status
[2017-06-15] MEDS: LACTOBACILLUS RHAMNOSUS GG 1 EACH CAP.SPRINK PO SCH ×2 (08:32→16:14)
[2017-06-15] MEDS: MULTIVITAMINS,THERAGRAN 1 UDTAB TABLET PO SCH (08:32)
[2017-06-15] MEDS: VANCOMYCIN 2 GM in IV D5W 500 ML IV SCH ×2 (08:32→20:33)
[2017-06-15] MEDS: PROSOURCE / PROSTAT (PYXIS) 30 ML UDC GT SCH ×3 (08:33→16:14)
[2017-06-15] MEDS: ENOXAPARIN SODIUM 40 MG/0.4 ML DISP.SYRIN SQ SCH (08:34)
[2017-06-15] MEDS: CIPROFLOXACIN HCL 0.3% 5 ML BOTTLE OT SCH ×2 (08:34→16:15)
--- NOTE | 2017-06-15 09:45 | NUR ---
CREDIT ADVISOR: hold sedation vacation until ABG will be done
--- NOTE | 2017-06-15 10:05 | NUR ---
CIAIO LUMITE INJECTOR: ABG: pH 7.41, pCO2 59, pO2 78, SR, SBP over 100, no SOB, will do sedation vacation per protocol
[2017-06-15 10:06] LABS: ABG BASE EXCESS 10.1 mmol/L; ABG OXYGEN SATURATION 94.5 % (92.0-98.5); ABG PCO2 59.7 mmHg (35.0-45.0); ABG PH 7.411 (7.350-7.450); ABG PO2 78.1 mmHg (75.0-100.0); AaDO2 211.2 mmHg; MetHb 0.3 % (0.0-1.5); O2Hb 94.2 % (94.0-97.0); PEEP,BG 12 cm H2O; SITE, ABG Right Radial; VT, ABG 650 mL
--- NOTE | 2017-06-15 10:30 | NUR ---
ASSOCIATE CHIEF NURSE: Diprivan is off now, pt.can open eyes, eyes contact+, unable to follow commands, OFFAL WORKER Taco is in room, updated with pr.current condition, VS, I/O, labs, K 3.3, ABG, see new orders
--- NOTE | 2017-06-15 10:50 | NUR ---
CLINICAL EXERCISE PHYSIOLOGIST: O2 sat. 92-94%, RR 25-30, pt. is restless, grimacing, very diaphoretic, coughing with lot of saliva, SBP 160, will resume sedation
[2017-06-15] MEDS ORDERED: FUROSEMIDE IV ONE (11:00)
[2017-06-15] MEDS ORDERED: NS 0.9% IV ONE (11:00)
[2017-06-15] MEDS ORDERED: POTASSIUM CHLORIDE 20 MEQ TAB.PRT.SR PO ONE (11:00)
--- NOTE | 2017-06-15 17:00 | NUR ---
BATTERY PARTS ASSEMBLER: pt.is sedated well with 50 mcg/kg/min Diprivan, rest, reactive by touch/pain, SR, SBP over 100, O2sat. 92-96%, peep 12, no SOB, pm/skin/wounds care is done, no new wound, t max 99.9, OGTF residual WNL, Dara, IDNP was in room, updated with above, 3000ml urine out/12hrs with Lasix
--- NOTE | 2017-06-15 18:02 | NUR ---
PT REMAINS ON AC MODE LARGE PALE SPUTUM. SETTINGS ORDERED PEEP TO [id number]. ALARMS SET AND AUDIBLE ZERO DISTRESS NOTED AT THIS TIME. AMBU-BAG AT HEAD OF BED. Addendum: 06/15/17 at 1809 by MALCOLM DEGROOT RT Amended: Links added.
--- NOTE | 2017-06-15 19:42 | NUR ---
PT RECEIVED INTUBATED 8.0 ETT SECURED AT 26CM AT THE LIP. PT TOLERATING VENT SETTINGS. SX'D FOR SML AMT OF THICK TINGED/YELLOW SECRETIONS. VENT ALARMS SET AND AUDIBLE. AMBU BAG AT [facility]. VENT PLUGGED INTO RED OUTLET. WILL CONTINUE TO MONITOR. Addendum: 06/15/17 at 1942 by FARIHA WADE RT Amended: Links added.
--- NOTE | 2017-06-15 19:46 | NUR ---
WATCH REPAIR TECHNICIAN DF RECEIVED PT TO ROOM#251 PT SEDATED ON PROPOFOL @ 50MCG.PT INTUBATED TOLERATING CURRENT VENT SETTINGS. 02 SAT 0F 97% SR OF 61 BP OF 127/70. PT TOLERATING TUBE FEEDING OF FIBER SOURCE AT 40ML/HR MIN RESIDUALS OF 20 ML NOTED. VSS. NAD NOTED.
[2017-06-15] MEDS: LORAZEPAM INJ 2 MG/ML VIAL IV PRN (22:12)
--- NOTE | 2017-06-15 22:25 | NUR ---
NURSE INFORMATICIST DF PT WITH AGITATION TREMBLING OF UPPER BODY/HEAD ATIVAN 2NMG IVP PRN AGITATION.
[2017-06-16] VITALS (48 sets, daily range): BP systolic 123–146; BP diastolic 62–85
[2017-06-16] MEDS: PROPOFOL 10MG/ML 50ML 50 ML IV PRN ×20 (00:19→23:11)
[2017-06-16] MEDS: IPRATROPIUM NEB FS 0.5 MG/2.5 ML AMPUL.NEB NEB SCH ×6 (03:21→23:24)
[2017-06-16] MEDS: ALBUTEROL FS 2.5 MG/0.5 ML VIAL.NEB NEB SCH ×6 (03:21→23:24)
[2017-06-16] MEDS: MEROPENEM 1 G in IV NS 0.9% 100 ML IV SCH ×3 (05:44→20:44)
[2017-06-16] MEDS: FIBERSOURCE HN 1,000 ML BOTTLE GT PRN (05:45)
[2017-06-16 05:54] LABS: BASOPHILS % (AUTO) 0.3 % (0.0-2.0); EOSINOPHILS # (AUTO) 1.2 /CMM (0.0-0.7); EOSINOPHILS % (AUTO) 16.6 % (0.0-6.0); HEMATOCRIT 41 % (39-51); HEMOGLOBIN 13.5 g/dL (13.5-17.5); MEAN CORPUSCULAR HEMOGLOBIN 27 PG (26.0-33.0); MEAN CORPUSCULAR HGB CONC 33 g/dl (31.0-36.0); MEAN CORPUSCULAR VOLUME 83 fL (80-96); MONOCYTES # (AUTO) 0.6 /CMM (0.1-1.30); MONOCYTES % (AUTO) 8.9 % (2.0-12.0); NEUTROPHILS # (AUTO) 4.4 /CMM (1.8-8.9); NEUTROPHILS % (AUTO) 60.2 % (43.0-81.0); PLATELET COUNT (AUTO) 317 /CMM (150-450); RDW COEFFICIENT OF VARIATION 16.5 (11.5-15.0); RED BLOOD CELL COUNT(AUTO) 4.93 MIL/uL (4.5-6.0); WHITE BLOOD COUNT (AUTO) 7.2 K/uL (4.3-11.0)
[2017-06-16 06:00] LABS: CALCIUM, SERUM 8.5 mg/dL (8.5-10.1); CREATININE 0.5 mg/dL (0.6-1.3); POTASSIUM 3.4 mmol/L (3.5-5.1)
--- NOTE | 2017-06-16 07:52 | NUR ---
LUMBER HANDLER: pt.is deeply sedated with 50 mcg/kg/min Diprivan gtt, reactive by deep pain stimuli, pt.was agitated over night, got Ativan, Diprivan was 60 mcg gtt, FiO2 50%, peep 12, O2 sat. 92-93% now, suctioned, SR, SBP over 100, NGTF residual WNL, keep HOB over 40, no Sz activity over night per report, T 99.9 now, will s/w MD for sedation vacation agree after ABG will be done
[2017-06-16] MEDS: ACETYLCYSTEINE 10% SOLN 400 MG/4 ML VIAL NEB SCH ×3 (08:21→23:23)
--- NOTE | 2017-06-16 08:21 | NUR ---
RT PATIENT REC'D ORALLY INTUBATED ON [facility] VENT WITH SETTINGS TOLERATED WELL. VENT ALARMS CHECKED + AUDIBLE. CUFF PRESSURE CHECKED SAMPLE COLLECTOR. SX'D WITH SMALL/MOD AMT PALE SEMITHICK SECRETIONS. B/S DIM. AMBU BAG AT [facility]. CONT CURRENT PLAN OF RESP CARE. Addendum: 06/16/17 at 0948 by PANCHO SCHMITZ RT Amended: Links added.
[2017-06-16] MEDS: CIPROFLOXACIN HCL 0.3% 5 ML BOTTLE OT SCH ×2 (08:35→17:00)
[2017-06-16] MEDS: VANCOMYCIN 2 GM in IV D5W 500 ML IV SCH ×2 (08:35→21:28)
[2017-06-16] MEDS: PROSOURCE / PROSTAT (PYXIS) 30 ML UDC GT SCH ×3 (08:36→17:00)
[2017-06-16] MEDS: MULTIVITAMINS,THERAGRAN 1 UDTAB TABLET PO SCH (08:36)
[2017-06-16] MEDS: LACTOBACILLUS RHAMNOSUS GG 1 EACH CAP.SPRINK PO SCH ×2 (08:36→16:58)
[2017-06-16] MEDS: ENOXAPARIN SODIUM 40 MG/0.4 ML DISP.SYRIN SQ SCH (08:37)
[2017-06-16 09:25] LABS: ABG BASE EXCESS 10.1 mmol/L; ABG OXYGEN SATURATION 92.1 % (92.0-98.5); ABG PCO2 52.5 mmHg (35.0-45.0); ABG PH 7.452 (7.350-7.450); ABG PO2 66.9 mmHg (75.0-100.0); AaDO2 230.5 mmHg; COHb 0.3 % (0.5-1.5); MetHb 0.4 % (0.0-1.5); O2Hb 91.5 % (94.0-97.0); PEEP,BG 12 cm H2O; SITE, ABG Right Radial
--- NOTE | 2017-06-16 09:30 | NUR ---
PRODUCTION CLERK: Callie VAZQUEZ is in room, updated with pt.sedation level, agitating episodes over night, VS, I/O NGTF, ABG, labs, k+ 3.4, vent setting, see new orders. ABG pH 7.45, pO2 66, O2 sat. 91-93%, peep 12, FiO2 50%, waiting transit coach operator, hold sedation vacation
[2017-06-16 10:05] LABS: EOSINOPHILS % (MANUAL) 8 % (0-4); LYMPHOCYTES % (MANUAL) 16 % (16-48); MONOCYTES % (MANUAL) 7 % (0-11.0); NEUTROPHILS % (MANUAL) 69 (42-76)
[2017-06-16] MEDS ORDERED: POTASSIUM CHLORIDE 20 MEQ TAB.PRT.SR PO ONE (10:30)
--- NOTE | 2017-06-16 10:40 | NUR ---
FORENSIC SERGEANT: is in room/notified re pt.current condition, sedation level, ABG, VS, I/O, suction amount, vent.setting, NGTF, yesterday sedation vacation reaction, see new orders
--- NOTE | 2017-06-16 15:41 | NUR ---
SUPERINTENDENT GREENS: O2sat. was 89-91%, suctioned with lavage, O2sat 93-96% now
--- NOTE | 2017-06-16 18:21 | NUR ---
CENTER SALES AND SERVICE ASSOCIATE: pt.is sedated well with 50 mcg Diprivan gtt, reactive by touch/pain, O2 sat. 91-93% now, SR/SB min 56, SBP over 100, PM/skin/wounds care is done, FiO2 50%, peep 12, will notify next nurse to give MagnMilk at HS per TAYLOR Ledesma note, sedation vacation was not done today d/t unstable respiratory status today, no Sz activity during day shift
--- NOTE | 2017-06-16 19:30 | NUR ---
SCIENCE INTERPRETER INITIAL NOTE RECEIVED PATIENT SEDATED, ON DIPRIVAN AT 50mcg/kg/min. PATIENT IS NOTED TO BE REACTIVE TO TOUCH, ABLE TO OPEN EYES WITH GOOD EYE TRACKING, ABLE TO FOLLOW COMMANDS AT THIS TIME, CALM AND COOPERATIVE. WILL MONITOR CLOSELY FOR ANY SIGNS OF AGITATION, WILL TITRATE DIPRIVAN NEEDED AND ASSESS FOR NEED TO REPLACE BILATERAL SOFT WRIST RESTRAINTS SHOULD THE NEED ARISE. PATIENT IS INTUBATED, 8.0/26, [facility] VENT SETTINGS TOLERATED WELL, PEEP OF 12 AND FIO2 OF 50%, TV 650, AC 16. AIRWAY SUCTIONED NEEDED, SATURATION AT 94%. SR WITH HR OF 76. OGT IN PLACE, NO GASTRIC RESIDUAL, GTF ORDERED. TAI TRIPLE LUMEN INTACT AND PATENT, FLUSHED. F/C IN PLACE AND DRAINING WITH NEGAR COLORED URINE. PATIENT REPOSITIONED FOR COMFORT. BED IN LOW AND LOCKED POSITION. WILL MONITOR CLOSELY.
--- NOTE | 2017-06-16 20:35 | NUR ---
PT RECEIVED INTUBATED ON VENT. NO RESP DISTRESS NOTED. TOLERATING VENT SETTINGS. SX'D FOR MOD AMT OF THICK PALE SECRETIONS. VENT ALARMS SET AND AUDIBLE. AMBU BAG AT [facility]. VENT PLUGGED INTO RED OUTLET. WILL CONTINUE TO MONITOR. Addendum: 06/16/17 at 2035 by AKBAR HENRIQUEZ RT Amended: Links added.
--- NOTE | 2017-06-16 21:00 | NUR ---
SPACE SYSTEMS OPERATIONS MANAGER NOTE PATIENT OBSERVED TO BE MORE AWAKE AND AROUSABLE TACTILE STIMULI. PATIENT ALSO NOTED WITH MINIMAL HAND/ARM MOVEMENT, MANAGED TO CALM PATIENT DOWN AT THIS TIME. BILATERAL SOFT WRIST RESTRAINTS IN PLACE AT THIS TIME. ORDER OBTAINED. CN MADE AWARE. PATIENT ON DIPRIVAN 50mcg/kg/min. VS STABLE AT THIS TIME. WILL MONITOR CLOSELY.
[2017-06-16] MEDS: ACETAMINOPHEN 325 MG TABLET PO PRN (22:01)
[2017-06-17] VITALS (52 sets, daily range): BP systolic 94–148; BP diastolic 28–87
[2017-06-17] MEDS: PROPOFOL 10MG/ML 50ML 50 ML IV PRN ×24 (00:07→23:19)
--- NOTE | 2017-06-17 02:23 | NUR ---
SPRAY BOOTH OPERATOR NOTE PATIENT OBSERVED TO BE MORE AWAKE AND AGITATED. DIPRIVAN INCREASED TO 60mcg/kg/min. VS STABLE. PATIENT STILL WITH B SOFT WRIST RESTRAINTS. WILL MONITOR CLOSELY. Addendum: 06/17/17 at 0227 by AUSTIN MACDONALD RN PATIENT OBSERVED TO BE MORE FREQUENTLY AWAKE AND AROUSABLE, AGITATED.
[2017-06-17] MEDS: IPRATROPIUM NEB FS 0.5 MG/2.5 ML AMPUL.NEB NEB SCH ×6 (03:53→23:00)
[2017-06-17] MEDS: ALBUTEROL FS 2.5 MG/0.5 ML VIAL.NEB NEB SCH ×6 (03:53→23:00)
[2017-06-17] MEDS: MEROPENEM 1 G in IV NS 0.9% 100 ML IV SCH ×3 (04:32→20:11)
[2017-06-17] MEDS: FIBERSOURCE HN 1,000 ML BOTTLE GT PRN (04:34)
[2017-06-17 05:27] LABS: BASOPHILS % (AUTO) 0.5 % (0.0-2.0); EOSINOPHILS # (AUTO) 1.3 /CMM (0.0-0.7); EOSINOPHILS % (AUTO) 17.2 % (0.0-6.0); HEMATOCRIT 40 % (39-51); HEMOGLOBIN 13.2 g/dL (13.5-17.5); LYMPHOCYTES # (AUTO) 0.9 /CMM (0.8-4.8); LYMPHOCYTES % (AUTO) 11.8 % (20.0-44.0); MEAN CORPUSCULAR HEMOGLOBIN 28 PG (26.0-33.0); MEAN CORPUSCULAR HGB CONC 34 g/dl (31.0-36.0); MEAN CORPUSCULAR VOLUME 82 fL (80-96); MONOCYTES # (AUTO) 0.5 /CMM (0.1-1.30); MONOCYTES % (AUTO) 6.3 % (2.0-12.0); NEUTROPHILS # (AUTO) 4.8 /CMM (1.8-8.9); NEUTROPHILS % (AUTO) 64.2 % (43.0-81.0); PLATELET COUNT (AUTO) 385 /CMM (150-450); RDW COEFFICIENT OF VARIATION 16.6 (11.5-15.0); RED BLOOD CELL COUNT(AUTO) 4.81 MIL/uL (4.5-6.0); WHITE BLOOD COUNT (AUTO) 7.5 K/uL (4.3-11.0)
[2017-06-17 05:48] LABS: CALCIUM, SERUM 8.3 mg/dL (8.5-10.1); CREATININE 0.5 mg/dL (0.6-1.3)
[2017-06-17 06:06] LABS: POTASSIUM 3.5 mmol/L (3.5-5.1)
--- NOTE | 2017-06-17 06:42 | NUR ---
REMOTE CONTROL ASSEMBLER CLOSING NOTE PATIENT WITH NO ACUTE CHANGE IN CONDITION OBSERVED OVERNIGHT. PATIENT'S DIPRIVAN TITRATED ACCORDINGLY AND PATIENT IS AT 60mcg/kg/min, TOLERATED WELL, VS STABLE. SR WITH HR OF 66. MOM GIVEN ENDORSED, NO BM FOR THE SHIFT. PATIENT AFEBRILE, TMAX OF 100.2. WITH B SOFT WRIST RESTRAINTS, SKIN INTEGRITY AND CIRCULATION ENSURED, RESTRAINTS RELEASED INTERMITTENTLY. AIRWAY SUCTIONED NEEDED. TAI TLC KEPT INTACT AND PATENT. OGT INTACT, PATENT, FEEDING TOLERATED WELL. F/C REMAINS INTACT. ALL DUE MEDS GIVEN ORDERED. LABS DRAWN. TURNED AND REPOSITIONED, KEPT CLEAN AND DRY. TRACH CARE DONE, WOUND CARE RENDERED. SAFETY AND COMFORT ENSURED. BED IN LOW AND LOCKED POSITION. WILL ENDORSE ACCORDINGLY FOR CONTINUITY OF CARE.
[2017-06-17] MEDS: ACETYLCYSTEINE 10% SOLN 400 MG/4 ML VIAL NEB SCH ×3 (07:40→23:00)
--- NOTE | 2017-06-17 07:45 | NUR ---
RT PATIENT REC'D ORALLY INTUBATED ON [facility] VENT WITH SETTINGS TOLERATED WELL. VENT ALARMS CHECKED + AUDIBLE. CUFF PRESSURE CHECKED LINE CLEANER. SX'D WITH SMALL/MOD AMT PALE SEMITHICK SECRETIONS. B/S DIM. AMBU BAG AT [facility]. CONT CURRENT PLAN OF RESP CARE. Addendum: 06/17/17 at 0826 by PANCHO SCHMITZ RT Amended: Links added.
--- NOTE | 2017-06-17 07:50 | NUR ---
PRODUCTION ENGINEER: per CXR report: L.PICC is in place (no Midline)
--- NOTE | 2017-06-17 08:00 | NUR ---
MANAGER OF ADMINISTRATION: pt.is sedated well now with 60 mcg/kg/min Diprivan gtt, reactive by touch/pain, SR, SBP over 100, O2 sat. 91-92%, suctioned again with lavage, RT increased FiO2 50% to 60%, OGTF residual WNL, T 99.9, found yesterday pt.previous medical record, home meds package in the chart cassette - will notify Callie VAZQUEZ
[2017-06-17] MEDS: PROSOURCE / PROSTAT (PYXIS) 30 ML UDC GT SCH ×3 (08:34→17:02)
[2017-06-17] MEDS: MULTIVITAMINS,THERAGRAN 1 UDTAB TABLET PO SCH (08:35)
[2017-06-17] MEDS: LACTOBACILLUS RHAMNOSUS GG 1 EACH CAP.SPRINK PO SCH ×2 (08:35→16:51)
[2017-06-17] MEDS: CIPROFLOXACIN HCL 0.3% 5 ML BOTTLE OT SCH ×2 (08:36→17:02)
[2017-06-17] MEDS: ENOXAPARIN SODIUM 40 MG/0.4 ML DISP.SYRIN SQ SCH (08:37)
--- NOTE | 2017-06-17 09:00 | NUR ---
COAL HIKER: Taco Ledesma, SPEECH LANG PATH THERAPIST is in room, updated with pt.VS, sedation level, I/O, T, OGTF, FiO2 60%, O2 sat. 91-93%, peep 12, no BM, restraints, got pt.previous medical record, home meds package, see new orders
[2017-06-17] MEDS: VANCOMYCIN 2 GM in IV D5W 500 ML IV SCH (09:28)
[2017-06-17] MEDS ORDERED: BISACODYL SUPP (10 MG) 10 MG/SUPP.RECT SUPP.RECT RC ONE (09:30)
--- NOTE | 2017-06-17 09:40 | NUR ---
SALES CORRESPONDENT: O2sat. 92-93%, pH 7.41, pO2 73, pO2 61 on FiO2 60%, peep12, is in room, updated with all above, VS, sedation level, T, I/O, confirmed to hold sedation vacation d/t unstable respiratory status, continue upper airway suctions with resp.Tx, spoke with TAYLOR Ledesma, see new orders
[2017-06-17 10:21] LABS: ABG BASE EXCESS 11.8 mmol/L; ABG OXYGEN SATURATION 93.7 % (92.0-98.5); ABG PCO2 61.8 mmHg (35.0-45.0); ABG PH 7.418 (7.350-7.450); AaDO2 286.8 mmHg; COHb 0.2 % (0.5-1.5); MetHb 0.5 % (0.0-1.5); PEEP,BG 12 cm H2O; SITE, ABG Right Radial
[2017-06-17] MEDS: ACETAMINOPHEN 325 MG TABLET PO PRN ×2 (10:23→16:51)
--- NOTE | 2017-06-17 16:53 | NUR ---
EDUCATIONAL RECRUITER: pt.is sedated well with 50 mcg Diprivan gtt, rest, reactive by touch/pain, no grimacing, on wrists restraints, SR, SBP over 100, still on FiO2 60%, O2 sat. 92-94%, RR, OGTF residual WNL, Bisacodyl was given, had short episodes of SB 55-60, PM/skin/wounds care are done, Dara, IDNP was in room/updated
--- NOTE | 2017-06-17 19:00 | NUR ---
RN INITIAL NOTE RECEIVED PT SEDATED ON BED WITH DIPRIVAN @ 50MCG/KG/MIN. INTUBATED AND ON VENT WITH SETTINGS AC 16, TV 650, FIO2 60%, PEEP 12, ETT 8/@LIP, SATURATING WELL, NO S/S OF RESP DISTRESS. CURRENTLY SR ON THE MONITOR, HR 60-70'S. NEWELL INTACT. OGT ON FIBERSOURCE FEEDING @ 40MLS/HR, NO RESIDUALS, TOLERATING WELL. LEFT UPPER ARM PICC WITH TKO, FLUSHED AND PATENT, NO S/S OF INFILTRATION/INFECTION, DRESSING CDI. BED LOW AND LOCKED, SIDERAILS UP, CALL LIGHT WITHIN REACH. WILL MONITOR
--- NOTE | 2017-06-17 21:13 | NUR ---
PT RECEIVED INTUBATED ON VENT. NO RESP DISTRESS NOTED. TOLERATING VENT SETTINGS. SX'D FOR MOD AMT OF THICK PALE SECRETIONS. VENT ALARMS SET AND AUDIBLE. AMBU BAG AT [facility]. VENT PLUGGED INTO RED OUTLET. WILL CONTINUE TO MONITOR. Addendum: 06/17/17 at 2113 by AKBAR HENRIQUEZ RT Amended: Links added.
[2017-06-17] MEDS: VANCOMYCIN 1.5 GM in IV D5W 500 ML IV SCH (21:21)
[2017-06-18] VITALS (40 sets, daily range): BP systolic 132–165; BP diastolic 62–91
[2017-06-18] MEDS: PROPOFOL 10MG/ML 50ML 50 ML IV PRN ×25 (00:07→23:11)
[2017-06-18] MEDS: ALBUTEROL FS 2.5 MG/0.5 ML VIAL.NEB NEB SCH ×5 (03:19→20:12)
[2017-06-18] MEDS: IPRATROPIUM NEB FS 0.5 MG/2.5 ML AMPUL.NEB NEB SCH ×5 (03:19→20:12)
[2017-06-18] MEDS: MEROPENEM 1 G in IV NS 0.9% 100 ML IV SCH ×2 (04:29→13:44)
[2017-06-18 05:06] LABS: BASOPHILS % (AUTO) 0.2 % (0.0-2.0); EOSINOPHILS # (AUTO) 0.8 /CMM (0.0-0.7); EOSINOPHILS % (AUTO) 11.8 % (0.0-6.0); HEMATOCRIT 38 % (39-51); HEMOGLOBIN 12.6 g/dL (13.5-17.5); LYMPHOCYTES # (AUTO) 0.9 /CMM (0.8-4.8); LYMPHOCYTES % (AUTO) 12.4 % (20.0-44.0); MEAN CORPUSCULAR HEMOGLOBIN 27 PG (26.0-33.0); MEAN CORPUSCULAR HGB CONC 33 g/dl (31.0-36.0); MEAN CORPUSCULAR VOLUME 82 fL (80-96); MONOCYTES # (AUTO) 0.4 /CMM (0.1-1.30); MONOCYTES % (AUTO) 6.4 % (2.0-12.0); NEUTROPHILS # (AUTO) 4.9 /CMM (1.8-8.9); NEUTROPHILS % (AUTO) 69.2 % (43.0-81.0); PLATELET COUNT (AUTO) 392 /CMM (150-450); RDW COEFFICIENT OF VARIATION 16.5 (11.5-15.0); RED BLOOD CELL COUNT(AUTO) 4.61 MIL/uL (4.5-6.0)
[2017-06-18 05:21] LABS: CALCIUM, SERUM 8.5 mg/dL (8.5-10.1); CREATININE 0.5 mg/dL (0.6-1.3); POTASSIUM 3.5 mmol/L (3.5-5.1)
[2017-06-18] MEDS: FIBERSOURCE HN 1,000 ML BOTTLE GT PRN (05:25)
--- NOTE | 2017-06-18 06:30 | NUR ---
RN CLOSING NOTES PT REMAINS STABLE OF THE MOMENT. ALL DUE MEDS GIVEN, AM CARE PROVIDED. WILL ENDORSE KAELA TO AM RN
--- NOTE | 2017-06-18 07:30 | NUR ---
ICU/RN: Pt received intubated, sedated, easy to arouse on 50mcg/kg/min of Diprivan. Pt with moderate amount of thick white secretions. IVF infusing well. Sedation vacation initiated. GT auscultated, aspirated, positive placement with 15 cc gastric residual. FC draining dark yellow urine to gravity. Pt with desatuation below 90 SPO2 with turning and reposition despite increasing FiO2 to 100%. Bilat soft wrist restraints in place, pt easily awakened and attempts to pull out ETT. Restraint care rendered. Alarm sounds audible. Will cont to monitor pt.
[2017-06-18 07:47] LABS: ABG BASE EXCESS 12.6 mmol/L; ABG OXYGEN SATURATION 95.8 % (92.0-98.5); ABG PH 7.446 (7.350-7.450); ABG PO2 87.3 mmHg (75.0-100.0); AaDO2 266.5 mmHg; COHb 0.3 % (0.5-1.5); MetHb 0.5 % (0.0-1.5); PEEP,BG 12 cm H2O; SITE, ABG Right Radial
--- NOTE | 2017-06-18 08:00 | NUR ---
ICU/RN: Due meds administered. Restarted on sedation; pt gagging and attempts to pull out ETT. Pt tracks, follows some commands, is difficult to reorient. Restraints on for safety.
[2017-06-18] MEDS: ACETYLCYSTEINE 10% SOLN 400 MG/4 ML VIAL NEB SCH ×2 (08:28→15:10)
--- NOTE | 2017-06-18 08:28 | NUR ---
RT PATIENT REC'D ORALLY INTUBATED ON [facility] VENT WITH SETTINGS TOLERATED WELL. VENT ALARMS CHECKED + AUDIBLE. CUFF PRESSURE CHECKED CONSULTING NURSE. SX'D WITH SMALL/MOD AMT PALE SEMITHICK SECRETIONS. B/S DIM. AMBU BAG AT [facility]. CONT CURRENT PLAN OF RESP CARE. Addendum: 06/18/17 at 1641 by PANCHO SCHMITZ RT Amended: Links added.
--- NOTE | 2017-06-18 08:30 | NUR ---
ICU/RN: Dr Ian landis; updated on pt status. Pending ABG results.
[2017-06-18] MEDS: MULTIVITAMINS,THERAGRAN 1 UDTAB TABLET PO SCH (08:33)
[2017-06-18] MEDS: LACTOBACILLUS RHAMNOSUS GG 1 EACH CAP.SPRINK PO SCH ×2 (08:33→16:49)
[2017-06-18] MEDS: CIPROFLOXACIN HCL 0.3% 5 ML BOTTLE OT SCH ×2 (08:33→16:49)
[2017-06-18] MEDS: Z GUARD REMEDY 2 OZ OINT TP PRN (08:34)
[2017-06-18] MEDS: PROSOURCE / PROSTAT (PYXIS) 30 ML UDC GT SCH ×3 (08:34→16:49)
[2017-06-18] MEDS: ENOXAPARIN SODIUM 40 MG/0.4 ML DISP.SYRIN SQ SCH (08:35)
[2017-06-18] MEDS: VANCOMYCIN 1.5 GM in IV D5W 500 ML IV SCH (09:14)
--- NOTE | 2017-06-18 10:57 | NUR ---
RT FIO2 INCREASED TO 70% TO MAINTAIN SPO2 ABOVE 92%. DARSHANA YOUSIF AWARE Addendum: 06/18/17 at 1058 by PANCHO SCHMITZ RT Amended: Links added.
[2017-06-18] MEDS: LORAZEPAM INJ 2 MG/ML VIAL IV PRN (12:43)
[2017-06-18] MEDS: MORPHINE SULFATE INJ 4 MG/ML DISP.SYRIN IV PRN (14:41)
--- NOTE | 2017-06-18 15:30 | NUR ---
ICU/RN: Partial bed bath rendered; pt desaturates with repositioning and turning. Skin care rendered.
--- NOTE | 2017-06-18 17:15 | NUR ---
PEEP TITRATED TO [address] WALLACE ORDERS Addendum: 06/18/17 at 1715 by PANCHO SCHMITZ RT Amended: Links added.
--- NOTE | 2017-06-18 17:30 | NUR ---
ICU/RN: TAYLOR Little in for ID consult. Labs and VS reviewed. ABX dc'd; per WELL BLOWER order cultures if temp >101. Pt remains afebrile.
--- NOTE | 2017-06-18 19:00 | NUR ---
RN INITIAL NOTE RECEIVED PT SEDATED ON BED WITH DIPRIVAN @ 50MCG/KG/MIN. INTUBATED AND ON VENT WITH SETTINGS AC 16, TV 650, FIO2 70%, PEEP 10, ETT 8/@LIP, SATURATING WELL, NO S/S OF RESP DISTRESS. CURRENTLY SR ON THE MONITOR, HR 70'S. NEWELL INTACT. OGT ON FIBERSOURCE FEEDING @ 40MLS/HR, NO RESIDUALS, TOLERATING WELL. LEFT UPPER ARM PICC WITH TKO, FLUSHED AND PATENT, NO S/S OF INFILTRATION/INFECTION, DRESSING CDI. BED LOW AND LOCKED, SIDERAILS UP, CALL LIGHT WITHIN REACH. WILL MONITOR
--- NOTE | 2017-06-18 19:09 | NUR ---
ICU/RN: Pt lightly sedated on Diprivan, awakens to name and touch. Tolerating current vent settings. FC draining dark yellow urine to gravity. Care endorsed to PM RN for KAELA.
--- NOTE | 2017-06-18 20:43 | NUR ---
PT RECEIVED ON VENT VIA CHARTED SETTINGS AND ROUTE. TOLERATING VENT SETTINGS. AMBU BAG AT BEDSIDE, ALARMS SET AND AUDIBLE. VENT PLUGGED INTO RED OUTLET. NO RESP DISTRESS NOTED. WILL CONTINUE TO MONITOR Addendum: 06/18/17 at 2043 by PRISCILA ALLEN RT Amended: Links added.
[2017-06-18] MEDS: ACETAMINOPHEN 325 MG TABLET PO PRN (23:12)
[2017-06-19] VITALS (41 sets, daily range): BP systolic 117–160; BP diastolic 54–91
[2017-06-19] MEDS: ACETYLCYSTEINE 10% SOLN 400 MG/4 ML VIAL NEB SCH ×4 (00:12→23:07)
[2017-06-19] MEDS: IPRATROPIUM NEB FS 0.5 MG/2.5 ML AMPUL.NEB NEB SCH ×7 (00:12→23:07)
[2017-06-19] MEDS: ALBUTEROL FS 2.5 MG/0.5 ML VIAL.NEB NEB SCH ×7 (00:12→23:07)
[2017-06-19] MEDS: PROPOFOL 10MG/ML 50ML 50 ML IV PRN ×24 (00:22→23:32)
[2017-06-19 05:51] LABS: BASOPHILS % (AUTO) 0.4 % (0.0-2.0); EOSINOPHILS # (AUTO) 0.7 /CMM (0.0-0.7); EOSINOPHILS % (AUTO) 10.7 % (0.0-6.0); HEMATOCRIT 37 % (39-51); HEMOGLOBIN 12.4 g/dL (13.5-17.5); LYMPHOCYTES # (AUTO) 0.8 /CMM (0.8-4.8); LYMPHOCYTES % (AUTO) 12.8 % (20.0-44.0); MEAN CORPUSCULAR HEMOGLOBIN 28 PG (26.0-33.0); MEAN CORPUSCULAR HGB CONC 34 g/dl (31.0-36.0); MEAN CORPUSCULAR VOLUME 82 fL (80-96); MONOCYTES # (AUTO) 0.4 /CMM (0.1-1.30); MONOCYTES % (AUTO) 6.8 % (2.0-12.0); NEUTROPHILS # (AUTO) 4.3 /CMM (1.8-8.9); NEUTROPHILS % (AUTO) 69.3 % (43.0-81.0); PLATELET COUNT (AUTO) 406 /CMM (150-450); RDW COEFFICIENT OF VARIATION 16.2 (11.5-15.0); RED BLOOD CELL COUNT(AUTO) 4.52 MIL/uL (4.5-6.0); WHITE BLOOD COUNT (AUTO) 6.2 K/uL (4.3-11.0)
[2017-06-19 06:12] LABS: CALCIUM, SERUM 8.6 mg/dL (8.5-10.1); CREATININE 0.5 mg/dL (0.6-1.3); POTASSIUM 3.5 mmol/L (3.5-5.1)
--- NOTE | 2017-06-19 06:30 | NUR ---
RN CLOSING NOTES PT REMAINS STABLE OF THE MOMENT. ALL DUE MEDS GIVEN, AM CARE PROVIDED. WILL ENDORSE KAELA TO AM RN
--- NOTE | 2017-06-19 07:49 | NUR ---
PT RECEIVED ORALLY INTUBATED ON MECHANICAL VENT W/ SETTINGS PER MD. VENT IN RED OUTLET, AMBUBAG AT BEDSIDE, VENT ALARMS CHECKED AND AUDIBLE. PT SXED AND LAVAGED PRN, HME CHANGED PRN. HHN MEDS GIVEN INLINE PER MD ORDER. BREATH SOUNDS EQUAL, DIMINISHED. ETT CLEAN/DRY AND SECURED W/ ANCHOFAST. PLAN IS TO CONTINUE CARE UNDER CURRENT MD ORDERS AND MONITOR FOR CHANGES. Addendum: 06/19/17 at 1513 by ALEX FLOYD RT Amended: Links added.
[2017-06-19] MEDS: MULTIVITAMINS,THERAGRAN 1 UDTAB TABLET PO SCH (08:12)
[2017-06-19] MEDS: LACTOBACILLUS RHAMNOSUS GG 1 EACH CAP.SPRINK PO SCH ×2 (08:12→16:13)
[2017-06-19] MEDS: CIPROFLOXACIN HCL 0.3% 5 ML BOTTLE OT SCH ×2 (08:13→16:14)
[2017-06-19] MEDS: PROSOURCE / PROSTAT (PYXIS) 30 ML UDC GT SCH ×3 (08:14→16:13)
[2017-06-19] MEDS: ENOXAPARIN SODIUM 40 MG/0.4 ML DISP.SYRIN SQ SCH (08:20)
--- NOTE | 2017-06-19 08:45 | NUR ---
ICU/RN - Notes Diprivan titrated down to 25 mcg/kg/min for sedation vacation at 0800. At this time pt gagging and attempting to pull out ETT. Pt tracks, follows some commands, is difficult to reorient. Restraints on for safety. Pt placed back on sedation to ensure comfort as there are no plans for mechanical ventilator weaning at this time.
[2017-06-19 09:03] LABS: ABG BASE EXCESS 6.7 mmol/L; ABG OXYGEN SATURATION 95.5 % (92.0-98.5); ABG PCO2 47.2 mmHg (35.0-45.0); ABG PH 7.448 (7.350-7.450); ABG PO2 85.2 mmHg (75.0-100.0); AaDO2 363.2 mmHg; COHb 0.3 % (0.5-1.5); MetHb 0.4 % (0.0-1.5); O2Hb 94.8 % (94.0-97.0); PEEP,BG 10 cm H2O; SITE, ABG Right Radial; VENT MODE, BG AC 16 650 +10 70%; VT, ABG 650 mL
[2017-06-19] MEDS ORDERED: IBUP-1955 PO (11:14)
[2017-06-19] MEDS ORDERED: LORA-259 PO (11:14)
[2017-06-19] MEDS ORDERED: QUET400T3 PO (11:14)
[2017-06-19] MEDS ORDERED: PROP80CA2 PO (11:14)
--- NOTE | 2017-06-19 11:45 | NUR ---
ICU/RN - Notes Received call from pt's brother Brandan Kruger [phone] and pt's sister Ramona Lazo [phone], and provided updates on pt's plan of care.
--- NOTE | 2017-06-19 13:00 | NUR ---
ICU/RN - Notes Pt's sister Flor at bedside, spoke with embedded case manager Aide regarding plan of care.
[2017-06-19] MEDS: MORPHINE SULFATE INJ 4 MG/ML DISP.SYRIN IV PRN (13:55)
[2017-06-19] MEDS: FIBERSOURCE HN 1,000 ML BOTTLE GT PRN (13:56)
[2017-06-19] MEDS ORDERED: VALPROATE 1,500 MG in IV D5W 100 ML IV ONE (15:30)
[2017-06-19] MEDS ORDERED: SILVER SULFADIAZINE CREAM 25 GM TUBE TP PRN (16:00)
[2017-06-19] MEDS: VALPROIC ACID 250 MG/5 ML UDC GT SCH (16:12)
[2017-06-19] MEDS: CLOTRIMAZOLE/BETAMETASONE DIPROPIONATE 15 GM TUBE TP SCH (16:12)
[2017-06-19] MEDS: ACETAMINOPHEN 325 MG TABLET PO PRN (17:14)
[2017-06-19] MEDS: LORAZEPAM INJ 2 MG/ML VIAL IV PRN (17:19)
--- NOTE | 2017-06-19 17:24 | NUR ---
ICU/RN - Notes Pt appears with seizure like activity and low grade temperature of 100.2 F. Administered Ativan 2mg IVP as ordered and Tylenol 650 mg PO. Will continue to monitor.
--- NOTE | 2017-06-19 19:00 | NUR ---
RN INITIAL NOTE RECEIVED PT SEDATED ON BED WITH DIPRIVAN @ 50MCG/KG/MIN. INTUBATED AND ON VENT WITH SETTINGS AC 16, TV 650, FIO2 60%, PEEP 10, ETT 8/26@LIP, SATURATING WELL, NO S/S OF RESP DISTRESS. CURRENTLY SR ON THE MONITOR, HR 60'S. NEWELL INTACT. OGT ON FIBERSOURCE FEEDING @ 40MLS/HR, NO RESIDUALS, TOLERATING WELL. LEFT UPPER ARM PICC WITH TKO, FLUSHED AND PATENT, NO S/S OF INFILTRATION/INFECTION, DRESSING CDI. BED LOW AND LOCKED, SIDERAILS UP, CALL LIGHT WITHIN REACH. WILL MONITOR
--- NOTE | 2017-06-19 20:04 | NUR ---
PT RECEIVED INTUBATED 8.0 AT 26CM AT THE LIP ON VENT. NO RESP DISTRESS NOTED. TOLERATING VENT SETTINGS. SX'D FOR MOD AMT OF THICK PALE SECRETIONS. VENT ALARMS SET AND AUDIBLE. AMBU BAG AT [facility]. VENT PLUGGED INTO RED OUTLET. WILL CONTINUE TO MONITOR. Addendum: 06/19/17 at 2004 by AKBAR HENRIQUEZ RT Amended: Links added.
[2017-06-19] MEDS ORDERED: DIVALPROEX SODIUM 500 MG TABLET.DR PO SCH (22:00)
[2017-06-20] VITALS (42 sets, daily range): BP systolic 112–147; BP diastolic 50–77
[2017-06-20] MEDS: PROPOFOL 10MG/ML 50ML 50 ML IV PRN ×24 (00:09→23:11)
[2017-06-20] MEDS: LORAZEPAM INJ 2 MG/ML VIAL IV PRN ×3 (00:16→17:37)
--- NOTE | 2017-06-20 00:19 | NUR ---
RN NOTES PRN ATIVAN IV 2MG GIVEN FOR SEIZURE-LIKE ACTIVITY (HEAD JERKING/TWITCHING). ALL VITALS STABLE. WILL MONITOR CLOSELY
[2017-06-20] MEDS: ALBUTEROL FS 2.5 MG/0.5 ML VIAL.NEB NEB SCH ×6 (03:23→23:07)
[2017-06-20] MEDS: IPRATROPIUM NEB FS 0.5 MG/2.5 ML AMPUL.NEB NEB SCH ×6 (03:23→23:07)
[2017-06-20 05:22] LABS: BASOPHILS % (AUTO) 0.4 % (0.0-2.0); EOSINOPHILS # (AUTO) 0.7 /CMM (0.0-0.7); EOSINOPHILS % (AUTO) 11.5 % (0.0-6.0); HEMATOCRIT 36 % (39-51); LYMPHOCYTES # (AUTO) 0.7 /CMM (0.8-4.8); LYMPHOCYTES % (AUTO) 11.7 % (20.0-44.0); MEAN CORPUSCULAR HEMOGLOBIN 27 PG (26.0-33.0); MEAN CORPUSCULAR HGB CONC 33 g/dl (31.0-36.0); MEAN CORPUSCULAR VOLUME 82 fL (80-96); MONOCYTES # (AUTO) 0.3 /CMM (0.1-1.30); MONOCYTES % (AUTO) 5.6 % (2.0-12.0); NEUTROPHILS # (AUTO) 4.4 /CMM (1.8-8.9); NEUTROPHILS % (AUTO) 70.8 % (43.0-81.0); PLATELET COUNT (AUTO) 417 /CMM (150-450); RDW COEFFICIENT OF VARIATION 16.3 (11.5-15.0); RED BLOOD CELL COUNT(AUTO) 4.41 MIL/uL (4.5-6.0); WHITE BLOOD COUNT (AUTO) 6.2 K/uL (4.3-11.0)
[2017-06-20 05:42] LABS: VALPROIC ACID < 3 ug/mL (50-100)
[2017-06-20 05:43] LABS: CALCIUM, SERUM 8.5 mg/dL (8.5-10.1); CARBON DIOXIDE 37 mmol/L (21-32); CHLORIDE 101 mmol/L (98-107); CREATININE 0.4 mg/dL (0.6-1.3); GLUCOSE 94 mg/dL (74-106); MAGNESIUM 2.1 mg/dL (1.8-2.4); PHOSPHORUS 4.2 mg/dL (2.5-4.9); POTASSIUM 3.6 mmol/L (3.5-5.1); SODIUM SERUM 140 mmol/L (136-145); UREA NITROGEN, BLOOD 19 mg/dL (7-18)
--- NOTE | 2017-06-20 06:30 | NUR ---
RN CLOSING NOTES PT REMAINS STABLE OF THE MOMENT. ALL DUE MEDS GIVEN, AM CARE PROVIDED. WILL ENDORSE KAELA TO AM RN
[2017-06-20] MEDS: ACETYLCYSTEINE 10% SOLN 400 MG/4 ML VIAL NEB SCH ×3 (07:55→23:07)
--- NOTE | 2017-06-20 07:56 | NUR ---
RT PATIENT REC'D ORALLY INTUBATED ON [facility] VENT WITH SETTINGS TOLERATED WELL. VENT ALARMS CHECKED + AUDIBLE. CUFF PRESSURE CHECKED PAYROLL AND BENEFITS SPECIALIST. SX'D WITH SMALL/MOD AMT PALE SEMITHICK SECRETIONS. B/S DIM. AMBU BAG AT [facility]. CONT CURRENT PLAN OF RESP CARE. Addendum: 06/20/17 at 1355 by PANCHO SCHMITZ RT Amended: Links added.
[2017-06-20] MEDS: TOPIRAMATE 100 MG TABLET PO SCH (08:04)
[2017-06-20] MEDS: VALPROIC ACID 250 MG/5 ML UDC GT SCH ×3 (08:04→16:09)
[2017-06-20] MEDS: MULTIVITAMINS,THERAGRAN 1 UDTAB TABLET PO SCH (08:04)
[2017-06-20] MEDS: LACTOBACILLUS RHAMNOSUS GG 1 EACH CAP.SPRINK PO SCH ×2 (08:04→16:09)
[2017-06-20] MEDS: LEVOTHYROXINE SODIUM 88 MCG TABLET PO SCH (08:04)
[2017-06-20] MEDS: ATORVASTATIN 40 MG TABLET PO SCH (08:04)
[2017-06-20] MEDS: ENALAPRIL MALEATE (5 MG) 5 MG TABLET PO SCH (08:05)
[2017-06-20] MEDS: CLOTRIMAZOLE/BETAMETASONE DIPROPIONATE 15 GM TUBE TP SCH ×2 (08:05→16:06)
[2017-06-20] MEDS: HYDROCHLOROTHIAZIDE 25 MG TABLET PO SCH (08:05)
[2017-06-20] MEDS: CIPROFLOXACIN HCL 0.3% 5 ML BOTTLE OT SCH ×2 (08:05→16:06)
[2017-06-20 08:06] LABS: ABG BASE EXCESS 13.8 mmol/L; ABG OXYGEN SATURATION 96.2 % (92.0-98.5); ABG PCO2 57.6 mmHg (35.0-45.0); ABG PO2 92.6 mmHg (75.0-100.0); AaDO2 271.8 mmHg; COHb 0.3 % (0.5-1.5); MetHb 0.6 % (0.0-1.5); O2Hb 95.3 % (94.0-97.0); SITE, ABG Right Radial
[2017-06-20] MEDS: PROSOURCE / PROSTAT (PYXIS) 30 ML UDC GT SCH ×3 (08:06→16:09)
[2017-06-20] MEDS: ENOXAPARIN SODIUM 40 MG/0.4 ML DISP.SYRIN SQ SCH (08:07)
[2017-06-20] MEDS ORDERED: DIVALPROEX SODIUM 500 MG TABLET.DR PO SCH (09:00)
[2017-06-20] MEDS ORDERED: PALIPERIDONE PO SCH (09:00)
[2017-06-20] MEDS: MORPHINE SULFATE INJ 4 MG/ML DISP.SYRIN IV PRN (09:23)
--- NOTE | 2017-06-20 09:31 | NUR ---
ICU/RN - Notes Diprivan titrated down to 15 mcg/kg/min for sedation vacation. Pt tracks and follow commands. At this time, pt desaturating spO2 87%, and tachypneic with RR up to 30. Nods head yes when asked if in pain. Morphine 2mg IVP administered as ordered for PRN pain. Restarted on sedation as pt manifests in distress and complains of SOB. Will continue to monitor.
--- NOTE | 2017-06-20 09:45 | NUR ---
ICU/RN - Notes Dr Sosa at bedside for evaluation, requesting for Neurology to reevaluate pt due to seizure like activity. Dr Gutierrez's exchange line called and spoke with Brionna, who will forward message to Dr Gutierrez for consultation.
--- NOTE | 2017-06-20 09:58 | NUR ---
ICU/RN - Notes Pt noted with desaturation spO2 87-88%, pt suctioned. Notified RT
[2017-06-20] MEDS: FIBERSOURCE HN 1,000 ML BOTTLE GT PRN (14:42)
[2017-06-20] MEDS ORDERED: VALPROATE IV STA (16:38)
[2017-06-20] MEDS ORDERED: D5W IV STA (16:38)
[2017-06-20] MEDS ORDERED: VALPROIC ACID 250 MG/5 ML UDC GT SCH (17:00)
--- NOTE | 2017-06-20 17:37 | NUR ---
ICU/RN - Notes Pt appears with seizure like activity. Administered Ativan 2mg IVP as ordered. Will continue to monitor.
--- NOTE | 2017-06-20 20:00 | NUR ---
Received patient sedated on Diprivan drip @ 50 mcg via TAI PICC LINE.Site intact.Intubated to vent on AC mode.Vent settings well tolerated no respiratory distress noted.SB 58.VS stable. OGT feeding in progress no residual noted.Well tolerated.FC to gravity.No seizure activity noted at this time.Safety measures implemented with side rails up.Call light within easy reach.Continue monitoring.
[2017-06-20] MEDS: VALPROATE 1,000 MG in IV D5W 100 ML IV SCH (21:04)
[2017-06-21] VITALS (42 sets, daily range): BP systolic 58–159; BP diastolic 46–86
[2017-06-21] MEDS: PROPOFOL 10MG/ML 50ML 50 ML IV PRN ×22 (00:07→23:14)
[2017-06-21] MEDS: LORAZEPAM INJ 2 MG/ML VIAL IV PRN ×2 (01:17→17:21)
--- NOTE | 2017-06-21 01:20 | NUR ---
Noted patient had seizure activity with head shaking over 2 min.PRN Ativan administered. Safety measures implemented.Closely monitored.
[2017-06-21] MEDS: IPRATROPIUM NEB FS 0.5 MG/2.5 ML AMPUL.NEB NEB SCH ×6 (02:52→23:05)
[2017-06-21] MEDS: ALBUTEROL FS 2.5 MG/0.5 ML VIAL.NEB NEB SCH ×6 (02:52→23:05)
[2017-06-21] MEDS: VALPROATE 1,000 MG in IV D5W 100 ML IV SCH ×2 (05:01→12:51)
--- NOTE | 2017-06-21 05:09 | NUR ---
RT NOTES: PATIENT ORALLY INTUBATED ON [facility] VENT WITH NOTED SETTINGS TOLERATED WELL. VENT ALARMS CHECKED + AUDIBLE. CUFF PRESSURE CHECKED [employer]. SUCTIONED PRN WITH SMALL/MOD AMT PALE SEMI-THICK SECRETIONS. B/S DIM. BILAT. AMBU BAG AT [facility]. CONT CURRENT PLAN OF RESP CARE. NO DISTRESS/ ADVERSE EFFECTS NOTED ALL SHIFT. Addendum: 06/21/17 at 0510 by BI STEPHEN RT Amended: Links added.
[2017-06-21 05:25] LABS: BASOPHILS % (AUTO) 0.6 % (0.0-2.0); EOSINOPHILS # (AUTO) 0.6 /CMM (0.0-0.7); EOSINOPHILS % (AUTO) 9.8 % (0.0-6.0); HEMATOCRIT 37 % (39-51); HEMOGLOBIN 12.1 g/dL (13.5-17.5); LYMPHOCYTES # (AUTO) 0.8 /CMM (0.8-4.8); LYMPHOCYTES % (AUTO) 12.7 % (20.0-44.0); MEAN CORPUSCULAR HEMOGLOBIN 27 PG (26.0-33.0); MEAN CORPUSCULAR HGB CONC 33 g/dl (31.0-36.0); MEAN CORPUSCULAR VOLUME 81 fL (80-96); MONOCYTES # (AUTO) 0.4 /CMM (0.1-1.30); MONOCYTES % (AUTO) 6.7 % (2.0-12.0); NEUTROPHILS # (AUTO) 4.5 /CMM (1.8-8.9); NEUTROPHILS % (AUTO) 70.2 % (43.0-81.0); PLATELET COUNT (AUTO) 431 /CMM (150-450); RDW COEFFICIENT OF VARIATION 15.6 (11.5-15.0); RED BLOOD CELL COUNT(AUTO) 4.52 MIL/uL (4.5-6.0); WHITE BLOOD COUNT (AUTO) 6.3 K/uL (4.3-11.0)
--- NOTE | 2017-06-21 05:50 | NUR ---
Patient resting.VS stable.SR/SB 50's.NPO post MN observed.OGT feeding oh hold. For TRACH Placement today.Consent signed.Preop check list initiated.No further seizure activity noted.AM care done.Diprivan drip infusing at same rate 50 mcg.
[2017-06-21 05:55] LABS: CALCIUM, SERUM 8.8 mg/dL (8.5-10.1); CREATININE 0.4 mg/dL (0.6-1.3); PHOSPHORUS 3.9 mg/dL (2.5-4.9); POTASSIUM 3.2 mmol/L (3.5-5.1)
[2017-06-21] MEDS ORDERED: ANESTHESIA TRAY IN PYXIS 1 EA TRAY MC ONE (06:28)
[2017-06-21] MEDS ORDERED: LIDOCAINE 2%-EPI 1:200,000 20 ML VIAL IJ ONE (06:28)
[2017-06-21] MEDS ORDERED: ATRACURIUM 100MG/10 ML MDV IV ONE (06:53)
[2017-06-21] MEDS ORDERED: FENTANYL PF 100MCG/2ML AMPUL ONE (06:53)
[2017-06-21] MEDS ORDERED: CLINDAMYCIN 900 MG/6 ML VIAL ONE (07:14)
--- NOTE | 2017-06-21 07:15 | NUR ---
SEPTIC PUMP TRUCK DRIVER NOTES RECEIVED PATIENT SEDATED , NOT IN ACUTE DISTRESS , RESPIRATIONS EVEN AND UNLABORED , SPO2 OF 95% VIA MECHANICAL VENTILATOR SETTINGS ORDERED , ETT 8.0/[address] , SR 75 ON BEDSIDE MONITOR , OGT PATENT AND INTACT CLAMPED , FC DRAINING WELL VIA GRAVITY WITH CLEAR YELLOW URINE , BILATERAL SOFT WRIST RESTRAINS IN PLACE VISUAL CHECK PER PROTOCOL , TAI PICC LINE PATENT AND INTACT WITH NS @ TKO , PATIENT TRANSFERRED TO OR FOR TRACHEOSTOMY , ALL CONSENT VERIFIED AND SIGNED , PRE OP CHECKLIST DONE BY FELA GILLILAND ,
[2017-06-21] MEDS: ACETYLCYSTEINE 10% SOLN 400 MG/4 ML VIAL NEB SCH ×3 (07:22→23:05)
--- NOTE | 2017-06-21 07:30 | NUR ---
ELECTRICAL ESTIMATOR NOTES PATIENT STABLE POST TRACH PLACEMENT , SHILEY XLT IN PLACE , NO BLEEDING NOTED , TOLERATING CURRENT VENT SETTINGS WITH SPO2 OF 91-93% , SR 85 ON BEDSIDE MONITOR , V/S STABLE AFEBRILE , POST OP ORDERS RECEIVED , WILL CONTINUE TO MONITOR
--- NOTE | 2017-06-21 08:30 | NUR ---
GREEN CHAIN WORKER NOTES SEEN AND EVALUATED BY DR WALLACE DISCUSSED LABS , CHEST XRAY , PT S/P TRACH PLACEMENT , AGITATED OFF DIPRIVAN WITH DISTRESS , DOESN'T FOLLOWS COMMANDS , TOLERATING CURRENT VENT SETTINGS WITH SPO2 OF 100% , WITH EPISODES OF SEIZURE @ 0130 AM , AFEBRILE , V/S STABLE , ASKED ORDER FOR NGT INSERTION FOR GT FEEDING AND MEDICATION , PER MD INSERT NGT AND DO CHEST XRAY , ORDERS CARRIED OUT .
[2017-06-21] MEDS: ENOXAPARIN SODIUM 40 MG/0.4 ML DISP.SYRIN SQ SCH (09:00)
--- NOTE | 2017-06-21 09:00 | NUR ---
POSTAL CARRIER NOTES LOVENOX DOSE HELD DUE TO MINIMAL BLEEDING AT TRACH SITE ,
--- NOTE | 2017-06-21 09:00 | NUR ---
CEMETERY WARDEN NOTES SEEN AND EVALUATED BY DR RIVERS , DISCUSSED THAT PATIENT HAD SEIZURE ACTIVITY @ 0130 AM , DOESN'T FOLLOWS COMMANDS DURING SEDATION VACATION , AGITATED WITH DISTRESS , PER MD GIVE DEPACON 2000MG BOLUS , ORDERS CARRIED OUT
--- NOTE | 2017-06-21 09:20 | NUR ---
PT BACK FORM OR TRACHED ON PREVIOUS SETTINGS. ALARMS SET AND AUDIBLE. ZERO DISTRESS NOTED TRACH MIDLINE B/S EQUAL. SMALL BLOOD TINGED SPUTUM AMBU BAG AT HEAD OF BED. Addendum: 06/21/17 at 0923 by MALCOLM DEGROOT RT Amended: Links added.
[2017-06-21] MEDS ORDERED: VALPROATE IV STA ×2 (10:37→13:44)
[2017-06-21] MEDS ORDERED: D5W IV STA ×2 (10:37→13:44)
[2017-06-21] MEDS: CLOTRIMAZOLE/BETAMETASONE DIPROPIONATE 15 GM TUBE TP SCH ×2 (10:46→16:06)
[2017-06-21] MEDS: CIPROFLOXACIN HCL 0.3% 5 ML BOTTLE OT SCH ×2 (10:46→16:06)
[2017-06-21] MEDS: PROSOURCE / PROSTAT (PYXIS) 30 ML UDC GT SCH ×3 (10:46→16:05)
[2017-06-21] MEDS: LACTOBACILLUS RHAMNOSUS GG 1 EACH CAP.SPRINK PO SCH ×2 (10:47→16:05)
[2017-06-21] MEDS: LEVOTHYROXINE SODIUM 88 MCG TABLET PO SCH (10:47)
[2017-06-21] MEDS: MULTIVITAMINS,THERAGRAN 1 UDTAB TABLET PO SCH (10:47)
[2017-06-21] MEDS: ATORVASTATIN 40 MG TABLET PO SCH (10:47)
[2017-06-21] MEDS: HYDROCHLOROTHIAZIDE 25 MG TABLET PO SCH (10:47)
[2017-06-21] MEDS: TOPIRAMATE 100 MG TABLET PO SCH (10:47)
[2017-06-21] MEDS: ENALAPRIL MALEATE (5 MG) 5 MG TABLET PO SCH (10:48)
[2017-06-21] MEDS: POTASSIUM CHLORIDE 20 MEQ POWDER PACKET GT SCH ×2 (11:24→12:52)
[2017-06-21] MEDS: FIBERSOURCE HN 1,000 ML BOTTLE GT PRN (16:05)
--- NOTE | 2017-06-21 17:21 | NUR ---
WILDLIFE REMOVAL SPECIALIST NOTES PATIENT APPEARS WITH SEIZURE LIKE ACTIVITY , NOTED WITH EYE ROVING , JERKING MOVEMENT FOR 30-40 SECONDS , SUCTIONED PT , ATIVAN 2MG PRN ADMINISTERED , WILL CONTINUE TO MONITOR
--- NOTE | 2017-06-21 20:00 | NUR ---
Received patient sedated on Diprivan drip at 40 mcg.Patient with trach to vent on AC mode. Continued on same vent settings well tolerated.No respiratory distress noted.NGT feeding in progress.No residual noted.FC to gravity with moderate urine.Obese and patient on MARIUM JUNIOR 11 special bed.Continue monitoring.
[2017-06-21] MEDS: VALPROATE 1,500 MG in IV D5W 100 ML IV SCH (21:03)
[2017-06-22] VITALS (35 sets, daily range): BP systolic 106–141; BP diastolic 51–103
[2017-06-22] MEDS: PROPOFOL 10MG/ML 50ML 50 ML IV PRN ×10 (00:23→08:24)
[2017-06-22] MEDS: LORAZEPAM INJ 2 MG/ML VIAL IV PRN ×4 (00:32→20:51)
--- NOTE | 2017-06-22 01:15 | NUR ---
0025 Noted patient with eyes open and staring and started having gran mal like seizure activity over 5 min. 0032 Ativan 2 mg IV given as PRN.Patient continued to have seizure activity post ativan. 0100 Dr.Simona Roman.notified of patient status with orders received and carried out.Diprivan drip increased to 60 mcg. 0103 Patient seizure stop.Ativan new order not given. 0110 in to eval.patient.No new orders received.
[2017-06-22] MEDS ORDERED: PROPOFOL 100 ML IV PRN (01:30)
[2017-06-22] MEDS ORDERED: LORAZEPAM INJ 2 MG/ML VIAL IV PRN (01:30)
[2017-06-22] MEDS: ALBUTEROL FS 2.5 MG/0.5 ML VIAL.NEB NEB SCH ×5 (03:35→19:24)
[2017-06-22] MEDS: IPRATROPIUM NEB FS 0.5 MG/2.5 ML AMPUL.NEB NEB SCH ×5 (03:35→19:22)
[2017-06-22 05:00] LABS: BASOPHILS % (AUTO) 0.5 % (0.0-2.0); EOSINOPHILS # (AUTO) 0.5 /CMM (0.0-0.7); EOSINOPHILS % (AUTO) 6.6 % (0.0-6.0); HEMATOCRIT 38 % (39-51); HEMOGLOBIN 12.8 g/dL (13.5-17.5); LYMPHOCYTES # (AUTO) 0.9 /CMM (0.8-4.8); LYMPHOCYTES % (AUTO) 13.5 % (20.0-44.0); MEAN CORPUSCULAR HEMOGLOBIN 27 PG (26.0-33.0); MEAN CORPUSCULAR HGB CONC 33 g/dl (31.0-36.0); MEAN CORPUSCULAR VOLUME 82 fL (80-96); MONOCYTES # (AUTO) 0.5 /CMM (0.1-1.30); MONOCYTES % (AUTO) 6.9 % (2.0-12.0); NEUTROPHILS # (AUTO) 5.1 /CMM (1.8-8.9); NEUTROPHILS % (AUTO) 72.5 % (43.0-81.0); PLATELET COUNT (AUTO) 424 /CMM (150-450); RDW COEFFICIENT OF VARIATION 16.3 (11.5-15.0); RED BLOOD CELL COUNT(AUTO) 4.68 MIL/uL (4.5-6.0)
[2017-06-22] MEDS: VALPROATE 1,500 MG in IV D5W 100 ML IV SCH ×3 (05:02→20:51)
[2017-06-22 05:22] LABS: CALCIUM, SERUM 9.1 mg/dL (8.5-10.1); CREATININE 0.4 mg/dL (0.6-1.3); MAGNESIUM 1.9 mg/dL (1.8-2.4); PHOSPHORUS 4.2 mg/dL (2.5-4.9); POTASSIUM 3.2 mmol/L (3.5-5.1)
--- NOTE | 2017-06-22 05:28 | NUR ---
RT NOTES: PATIENT TRACHED ON [facility] VENT WITH NOTED SETTINGS TOLERATED WELL. VENT ALARMS CHECKED + AUDIBLE. CUFF PRESSURE CHECKED RN MIDWIFE. SUCTIONED PRN WITH SMALL/MOD AMT LIGHT PINK SEMI-THICK SECRETIONS. B/S DIM. BILAT. AMBU BAG AT [facility]. CONT CURRENT PLAN OF RESP CARE. NO DISTRESS/ ADVERSE EFFECTS NOTED ALL SHIFT. Addendum: 06/22/17 at 0529 by BI STEPHEN RT Amended: Links added.
--- NOTE | 2017-06-22 06:00 | NUR ---
Patient resting am care done.VS stable.SR/SB/50's.Patient had another episode of katiana mal seizure like activity over 2 min.PRN Ativan given.Due medications administered.Turned and repositioned. Diprivan drip still @ 60 mcg.Site intact.Needs met.
--- NOTE | 2017-06-22 07:15 | NUR ---
DIRECTOR DIGITAL ADVERTISING NOTES RECEIVED PATIENT SEDATED , NOT IN ACUTE DISTRESS , RESPIRATIONS EVEN AND UNLABORED , SPO2 OF 95% VIA MECHANICAL VENTILATOR SETTINGS ORDERED , TRACH OF SHILEY XLT IN PLACE SUTURES INTACT, SB 59 ON BEDSIDE MONITOR , R NARE NGT PATENT AND INTACT WITH FIBERSOURCE @ 40ML/HR TOLERATING WELL WITH NO RESIDUALS NOTED , FC DRAINING WELL VIA GRAVITY WITH CLEAR YELLOW URINE , BILATERAL SOFT WRIST RESTRAINS IN PLACE VISUAL CHECK PER PROTOCOL , TAI PICC LINE PATENT AND INTACT WITH NS @ TKO , DIPRIVAN @ 60MCG/KG/MIN , ALL NEEDS ATTENDED , BED ON LOW AND LOCKED POSITION , SIDE RAILS X2 , HOB @ 35 , WILL CONTINUE TO MONITOR
[2017-06-22] MEDS: ACETYLCYSTEINE 10% SOLN 400 MG/4 ML VIAL NEB SCH ×2 (08:03→15:30)
[2017-06-22] MEDS: ATORVASTATIN 40 MG TABLET PO SCH (08:04)
[2017-06-22] MEDS: LACTOBACILLUS RHAMNOSUS GG 1 EACH CAP.SPRINK PO SCH ×2 (08:05→16:01)
[2017-06-22] MEDS: MULTIVITAMINS,THERAGRAN 1 UDTAB TABLET PO SCH (08:05)
[2017-06-22] MEDS: TOPIRAMATE 100 MG TABLET PO SCH (08:05)
[2017-06-22] MEDS: HYDROCHLOROTHIAZIDE 25 MG TABLET PO SCH (08:05)
[2017-06-22] MEDS: PROSOURCE / PROSTAT (PYXIS) 30 ML UDC GT SCH ×3 (08:05→16:01)
[2017-06-22] MEDS: ENALAPRIL MALEATE (5 MG) 5 MG TABLET PO SCH (08:05)
[2017-06-22] MEDS: LEVOTHYROXINE SODIUM 88 MCG TABLET PO SCH (08:05)
[2017-06-22] MEDS: ENOXAPARIN SODIUM 40 MG/0.4 ML DISP.SYRIN SQ SCH (08:06)
[2017-06-22] MEDS: CIPROFLOXACIN HCL 0.3% 5 ML BOTTLE OT SCH ×2 (08:07→16:02)
[2017-06-22] MEDS: CLOTRIMAZOLE/BETAMETASONE DIPROPIONATE 15 GM TUBE TP SCH ×2 (08:07→16:02)
[2017-06-22] MEDS: Z GUARD REMEDY 2 OZ OINT TP PRN (08:07)
--- NOTE | 2017-06-22 09:00 | NUR ---
COUNTER TACKER NOTES PATIENT OFF DIPRIVAN , TOLERATING CURRENT VENT SETTINGS WITH NO SIGNS OF DISTRESS , WILL CONTINUE TO MONITOR .
--- NOTE | 2017-06-22 11:00 | NUR ---
CRUTCHING CONTRACTOR NOTES PATIENT OPENS EYES , NOTED WITH TRACKING , DOES NOT FOLLOWS COMMANDS , ABLE TO MOVE TO LOCALIZE PAIN , TOLERATING VENT SETTINGS WITH NO S/S OF DISTRESS , OFF SEDATION , WILL CONTINUE TO MONITOR .
[2017-06-22] MEDS: POTASSIUM CHLORIDE 20 MEQ POWDER PACKET GT SCH ×2 (11:40→12:25)
[2017-06-22] MEDS ORDERED: POTASSIUM CHLORIDE 20 MEQ POWDER PACKET NG SCH (12:00)
--- NOTE | 2017-06-22 12:30 | NUR ---
AMUSEMENT MACHINE MECHANIC NOTES SEEN AND EVALUATED BY ISIDRA CIGARETTE CARTON SEALER , DISCUSSED LABS , AFEBRILE , V/S STABLE ,AFEBRILE , OFF SEDATION , TOLERATING CURRENT VENT SETTINGS WITH SPO2 OF 92-95% WITH NO SIGNS OF DISTRESS , AWAKE , TRACKING , MOVE TO LOCALIZED PAIN , BUT DOES NOT FOLLOWS COMMANDS , PEG PLACEMENT WAS HELD PT IS ON NGT FEEDING , ASKED ORDER FOR PROTONIX , PER CIGARETTE CARTON SEALER START PT ON PROTONIX 40MG DAILY . WITH EPISODES OF SEIZURE 1225 AND 0330 CIGARETTE CARTON SEALER AWARE .
--- NOTE | 2017-06-22 14:44 | NUR ---
TRACTION POWER ENGINEER NOTES SPOKE WITH DR COX REGARDING PLAN OF GT PLACEMENT , MD AWARE , HE WILL CALL POWER WOOD SAWYER ISIDRA TO DISCUSS PLAN FO CARE
[2017-06-22] MEDS: FIBERSOURCE HN 1,000 ML BOTTLE GT PRN (16:02)
[2017-06-22] MEDS: MORPHINE SULFATE INJ 4 MG/ML DISP.SYRIN IV PRN (16:56)
[2017-06-22] MEDS: IV NS 0.9% 250 ML IV PRN (18:26)
--- NOTE | 2017-06-22 19:45 | NUR ---
SLOT ATTENDANT. INITIAL ASSESSMENT. RECEIVED THE PT REST ON THE BED.TRACH TO VENT CONNECTED. JAVIER#XLT 8 AC 16, TV 650,FIO2 50%, PEEP 10. SAT 96%. FINANCIAL CONTROLLER SHOWING NSR. IV LT UPPER ARM PICC LINE TKO RUNNING. RT NARE NGT FIBER SOURCE 40ML/H. FC PATENT. ANAYELI SOFT WRIST RESTRAINT CHECKED AND RELEASED. NO INJURY OR REDNESS NOTED. HOB ELEVATED. TURN AND REPOSITION Q2H. WILL CONTINUE TO MONITOR VITALS.
[2017-06-23] VITALS (36 sets, daily range): BP systolic 109–147; BP diastolic 52–101
[2017-06-23] MEDS: ALBUTEROL FS 2.5 MG/0.5 ML VIAL.NEB NEB SCH ×7 (00:12→23:21)
[2017-06-23] MEDS: ACETYLCYSTEINE 10% SOLN 400 MG/4 ML VIAL NEB SCH ×4 (00:12→23:21)
[2017-06-23] MEDS: IPRATROPIUM NEB FS 0.5 MG/2.5 ML AMPUL.NEB NEB SCH ×7 (00:12→23:21)
--- NOTE | 2017-06-23 03:39 | NUR ---
PHYSICAL AERODYNAMICIST. AM CARE. ORAL CARE, BED BATH GIVEN. LINEN CHANGED. REMAINING SAME VENT SETTING TOLERATED WELL. SAT 98%. NO ACUTE DISTRESS NOTED. BAND SAWYER SHOWING NSR. IV LT UPPER ARM PICC LINE, TKO RUNNING, FC PATENT URINE DRAINING, ANAYELI SOFT WRIST NGT FEEDING TOLEATED WELL. HOB ELEVATED. TURN AND REPOSITION Q2H. WILL CONTINUE TO MONITOR VITALS.RESTRAINT CHECKED AND RELEASED, NO INJURY OR REDNESS NOTED.
[2017-06-23] MEDS: VALPROATE 1,500 MG in IV D5W 100 ML IV SCH ×3 (04:45→20:45)
[2017-06-23] MEDS: LORAZEPAM INJ 2 MG/ML VIAL IV PRN ×3 (05:46→15:34)
--- NOTE | 2017-06-23 06:05 | NUR ---
RECD PT ON TRACH. INTACT AND SECURED. GEE VENT SETTINGS. VENT ALARMS ON AND AUDIBLE VENT PLUGGED IN RED OUTLET AMBU BAG AT BEDSIDE. TX GIVEN NO ADVERSE REACTION GEE WELL NO RESP DISTRESS NOTED WILL CONTINUE TO MONITOR
[2017-06-23 06:06] LABS: CALCIUM, SERUM 8.8 mg/dL (8.5-10.1); CREATININE 0.5 mg/dL (0.6-1.3); POTASSIUM 3.3 mmol/L (3.5-5.1)
--- NOTE | 2017-06-23 07:51 | NUR ---
GASTROENTEROLOGY MANAGER: pt.is without sedation now, rest, on wrists restraints, got 2 doses of Ativan over night, had Sz episode history, with open eyes, unable to follow commands, SR/SB min 55, O2 sat. over 94%, FiO2 50%, peep 10, NGTF residual 20ml, keep HOB over40, no grimacing
[2017-06-23] MEDS: PANTOPRAZOLE 40 MG VIAL IV SCH (08:15)
[2017-06-23] MEDS: LACTOBACILLUS RHAMNOSUS GG 1 EACH CAP.SPRINK PO SCH ×2 (08:27→16:21)
[2017-06-23] MEDS: MULTIVITAMINS,THERAGRAN 1 UDTAB TABLET PO SCH (08:28)
[2017-06-23] MEDS: ENOXAPARIN SODIUM 40 MG/0.4 ML DISP.SYRIN SQ SCH (08:28)
[2017-06-23] MEDS: LEVOTHYROXINE SODIUM 88 MCG TABLET PO SCH (08:28)
[2017-06-23] MEDS: ATORVASTATIN 40 MG TABLET PO SCH (08:28)
[2017-06-23] MEDS: TOPIRAMATE 100 MG TABLET PO SCH (08:28)
[2017-06-23] MEDS: CLOTRIMAZOLE/BETAMETASONE DIPROPIONATE 15 GM TUBE TP SCH ×2 (08:30→16:19)
[2017-06-23] MEDS: CIPROFLOXACIN HCL 0.3% 5 ML BOTTLE OT SCH ×2 (08:30→16:19)
[2017-06-23] MEDS: PROSOURCE / PROSTAT (PYXIS) 30 ML UDC GT SCH ×3 (08:30→16:19)
[2017-06-23] MEDS: HYDROCHLOROTHIAZIDE 25 MG TABLET PO SCH (08:35)
[2017-06-23] MEDS: ENALAPRIL MALEATE (5 MG) 5 MG TABLET PO SCH (08:35)
--- NOTE | 2017-06-23 09:45 | NUR ---
POTATO CHIP MAKER: pt.is awake, very diaphoretic, grimacing 7-8/10, restless, O2 sat. 90-92%, SR 72, SBP 130, has Morphine 2mg IV prn
[2017-06-23] MEDS: MORPHINE SULFATE INJ 4 MG/ML DISP.SYRIN IV PRN ×2 (09:51→16:22)
[2017-06-23 11:04] LABS: ABG BASE EXCESS 6.6 mmol/L; ABG PCO2 47.7 mmHg (35.0-45.0); ABG PH 7.443 (7.350-7.450); ABG PO2 92.4 mmHg (75.0-100.0); AaDO2 210.4 mmHg; COHb 0.1 % (0.5-1.5); O2Hb 94.8 % (94.0-97.0); PEEP,BG 10 cm H2O; SITE, ABG Right Radial; VT, ABG 650 mL
--- NOTE | 2017-06-23 11:05 | NUR ---
POSITIVE PRINTER OPERATOR: updated with pt.current condition, VS, sedation off, I/O, O2 sat., FiO2 50%, peep 10 now, suctions amount, got ABG result, no v.setting changes for now
[2017-06-23] MEDS: ACETAMINOPHEN 325 MG TABLET PO PRN (11:49)
[2017-06-23] MEDS ORDERED: POTASSIUM CHLORIDE 20 MEQ TAB.PRT.SR PO ONE (12:00)
--- NOTE | 2017-06-23 12:00 | NUR ---
IRRIGATION FLUME LAYER: Silvia Kent NP is in room, checked pt.neurostatus, updated with VS, I/O, meds, NGTF, vent.setting, O2sat., GI is unable to place GT/PEG d/t pt.m.obesity, see new orders
--- NOTE | 2017-06-23 15:45 | NUR ---
MEASURER: pt.began restless, diaphoretic, coughing, slight head trembling, going for PM/bathcare, Ativan 2 mg IV is given
--- NOTE | 2017-06-23 16:30 | NUR ---
pt remains on [facility] ventilator settings as ordered. peep decreased to 8. alarms set and audible ambu bag at head of bed. Nathan 8 trach patent mov preformed. large pale yellow sputum. vent plugged into red outlet. Addendum: 06/23/17 at 1636 by MALCOLM DEGROOT RT Amended: Links added.
--- NOTE | 2017-06-23 18:27 | NUR ---
SIGNAL PERSON: pt.is reactive by touch now, rest, no sedation, very weak, eyes contact+, short tracking, but unable to follow commands properly, O2 sat. 91-94% now, SR, SBP over 100, remains on restraints, PM/skin/wounds care done
--- NOTE | 2017-06-23 19:25 | NUR ---
SLEEP TECH. INITIAL ASSESSMENT. RECEIVED THE PT REST ON HE BED. TRACH TO VENT CONNECTED. SHILY XLT#8, AC 16,TV 650,FIO2 50%,PEEP 8. SAT 98%. NON CLINICAL ADVISOR SHOWING NSR. IV LT UPPER ARM PICC LINE TKO RUNNING. RT NARE NGT INTACT. FIBER SOURCE 40 ML/H, HOB ELEVATED. ANAYELI SOFT WRIST RESTRAINT CHECKED AND RELEASED. NO INJURY OR REDNESS NOTED. FC PATENT. URINE DRAINING. TURN AND REPOSITION Q2H. WILL CONTINUE TO MONITOR VITALS.
[2017-06-23] MEDS: FIBERSOURCE HN 1,000 ML BOTTLE GT PRN (20:44)
[2017-06-23] MEDS: IV NS 0.9% 250 ML IV PRN (20:45)
--- NOTE | 2017-06-23 21:37 | NUR ---
PT RECEIVED ON VENT VIA CHARTED SETTINGS AND ROUTE. TOLERATING VENT SETTINGS. AMBU BAG AT BEDSIDE, ALARMS SET AND AUDIBLE. VENT PLUGGED INTO RED OUTLET. NO RESP DISTRESS NOTED. WILL CONTINUE TO MONITOR Addendum: 06/23/17 at 2141 by PRISCILA ALLEN RT Amended: Links added.
[2017-06-24] VITALS (36 sets, daily range): BP systolic 110–149; BP diastolic 58–91
[2017-06-24] MEDS: IPRATROPIUM NEB FS 0.5 MG/2.5 ML AMPUL.NEB NEB SCH ×6 (03:27→23:52)
[2017-06-24] MEDS: ALBUTEROL FS 2.5 MG/0.5 ML VIAL.NEB NEB SCH ×6 (03:27→23:52)
[2017-06-24] MEDS: VALPROATE 1,500 MG in IV D5W 100 ML IV SCH ×2 (05:02→13:52)
[2017-06-24 05:12] LABS: BASOPHILS % (AUTO) 0.2 % (0.0-2.0); EOSINOPHILS # (AUTO) 0.4 /CMM (0.0-0.7); EOSINOPHILS % (AUTO) 5.2 % (0.0-6.0); HEMATOCRIT 36 % (39-51); HEMOGLOBIN 12.1 g/dL (13.5-17.5); LYMPHOCYTES # (AUTO) 0.8 /CMM (0.8-4.8); LYMPHOCYTES % (AUTO) 11.7 % (20.0-44.0); MEAN CORPUSCULAR HEMOGLOBIN 28 PG (26.0-33.0); MEAN CORPUSCULAR HGB CONC 34 g/dl (31.0-36.0); MEAN CORPUSCULAR VOLUME 81 fL (80-96); MONOCYTES # (AUTO) 0.6 /CMM (0.1-1.30); MONOCYTES % (AUTO) 7.8 % (2.0-12.0); NEUTROPHILS # (AUTO) 5.4 /CMM (1.8-8.9); NEUTROPHILS % (AUTO) 75.1 % (43.0-81.0); PLATELET COUNT (AUTO) 460 /CMM (150-450); RDW COEFFICIENT OF VARIATION 16.4 (11.5-15.0); RED BLOOD CELL COUNT(AUTO) 4.39 MIL/uL (4.5-6.0); WHITE BLOOD COUNT (AUTO) 7.1 K/uL (4.3-11.0)
[2017-06-24 05:56] LABS: CALCIUM, SERUM 9.2 mg/dL (8.5-10.1); CREATININE 0.5 mg/dL (0.6-1.3); MAGNESIUM 1.8 mg/dL (1.8-2.4); PHOSPHORUS 3.4 mg/dL (2.5-4.9); POTASSIUM 3.6 mmol/L (3.5-5.1)
[2017-06-24] MEDS: ACETYLCYSTEINE 10% SOLN 400 MG/4 ML VIAL NEB SCH ×3 (07:13→23:52)
--- NOTE | 2017-06-24 08:00 | NUR ---
RN NOTES: PT. IS AWAKE, FOCUSING BUT NOT AWARE. HEAD SHAKES. DOES NOT FOLLOW COMMANDS. TRACH AND VENTED. LA STRONGER THAN RA. VSS. NO PRESSORS. MORBIDLY OBESE.SEE INITIAL ASSESSMENT @1000. INCONTINENT OF LARGE AMT. SOFT, BROWN BM. CLEANED SKIN CARE DONE. PT. SEEMS TO FAVOR TURNING ON HIS LT. SIDE. LESS AGITATED. @1200. DECREASED PEEP 5 ORDERED VS. SAT HIGHER THAN 94%.
[2017-06-24] MEDS: PANTOPRAZOLE 40 MG VIAL IV SCH (08:18)
[2017-06-24] MEDS: PROSOURCE / PROSTAT (PYXIS) 30 ML UDC GT SCH ×3 (08:19→16:23)
[2017-06-24] MEDS: CIPROFLOXACIN HCL 0.3% 5 ML BOTTLE OT SCH ×2 (08:21→16:24)
[2017-06-24] MEDS: LACTOBACILLUS RHAMNOSUS GG 1 EACH CAP.SPRINK PO SCH ×2 (08:21→16:23)
[2017-06-24] MEDS: ATORVASTATIN 40 MG TABLET PO SCH (08:22)
[2017-06-24] MEDS: HYDROCHLOROTHIAZIDE 25 MG TABLET PO SCH (08:22)
[2017-06-24] MEDS: LEVOTHYROXINE SODIUM 88 MCG TABLET PO SCH (08:22)
[2017-06-24] MEDS: TOPIRAMATE 100 MG TABLET PO SCH (08:23)
[2017-06-24] MEDS: ENALAPRIL MALEATE (5 MG) 5 MG TABLET PO SCH (08:24)
[2017-06-24] MEDS: MULTIVITAMINS,THERAGRAN 1 UDTAB TABLET PO SCH (08:24)
[2017-06-24] MEDS: CLOTRIMAZOLE/BETAMETASONE DIPROPIONATE 15 GM TUBE TP SCH ×2 (08:27→16:25)
[2017-06-24] MEDS: ENOXAPARIN SODIUM 40 MG/0.4 ML DISP.SYRIN SQ SCH (08:29)
--- NOTE | 2017-06-24 09:13 | NUR ---
RT NOTE PT RECEIVED MECHANICALLY VENTILATED VIA SHILEY 8 XLT CUFFED TRACH. TRACH MIDLINE AND SECURE. CUFF INFLATED. SETTINGS PRESCRIBED. ALARMS SET PER PROTOCOL AND AUDIBLE. BILATERAL CHEST RISE NOTED. VENT PLUGGED IN TO RED OUTLET. AMBU BAG AT BED SIDE. NO DISTRESS NOTED. WILL CONTINUE TO MONITOR. Addendum: 06/24/17 at 0916 by HANNAH WHEELER RT Amended: Links added.
--- NOTE | 2017-06-24 12:57 | NUR ---
RT NOTE PT PEEP LOWERED TO 5 PER MD PELEG ORDER. Addendum: 06/24/17 at 1257 by HANNAH WHEELER RT Amended: Links added.
--- NOTE | 2017-06-24 18:09 | NUR ---
RN NOTES: END OF SHIFT: PT. IS MORE AWAKE TODAY. BUT DOES NOT APPEAR TO COMPREHEND. TOLERATING PEEP 5. NO BLEEDING FROM TRACH SITE BUT LEAKING WHITISH TO CLEAR SPUTUM REQUIRING FREQUENT SUCTIONING. MINIMAL RESIDUAL FROM TF. TOTAL OF 2 SOFT BM LARGE AMT. BROWN IN COLOR. GOOD UOP.
[2017-06-24] MEDS: VALPROIC ACID 250 MG/5 ML UDC GT SCH (20:24)
[2017-06-24] MEDS: FIBERSOURCE HN 1,000 ML BOTTLE GT PRN (20:24)
[2017-06-25] VITALS (35 sets, daily range): BP systolic 118–148; BP diastolic 67–96
[2017-06-25] MEDS: IPRATROPIUM NEB FS 0.5 MG/2.5 ML AMPUL.NEB NEB SCH ×6 (03:30→23:02)
[2017-06-25] MEDS: ALBUTEROL FS 2.5 MG/0.5 ML VIAL.NEB NEB SCH ×6 (04:02→23:02)
[2017-06-25] MEDS: VALPROIC ACID 250 MG/5 ML UDC GT SCH ×3 (05:00→20:09)
[2017-06-25 05:39] LABS: BASOPHILS % (AUTO) 0.3 % (0.0-2.0); EOSINOPHILS # (AUTO) 0.4 /CMM (0.0-0.7); EOSINOPHILS % (AUTO) 6.1 % (0.0-6.0); HEMATOCRIT 36 % (39-51); HEMOGLOBIN 11.9 g/dL (13.5-17.5); LYMPHOCYTES # (AUTO) 0.9 /CMM (0.8-4.8); LYMPHOCYTES % (AUTO) 12.8 % (20.0-44.0); MEAN CORPUSCULAR HEMOGLOBIN 27 PG (26.0-33.0); MEAN CORPUSCULAR HGB CONC 33 g/dl (31.0-36.0); MEAN CORPUSCULAR VOLUME 82 fL (80-96); MONOCYTES # (AUTO) 0.7 /CMM (0.1-1.30); MONOCYTES % (AUTO) 10.1 % (2.0-12.0); NEUTROPHILS # (AUTO) 5.1 /CMM (1.8-8.9); NEUTROPHILS % (AUTO) 70.7 % (43.0-81.0); PLATELET COUNT (AUTO) 394 /CMM (150-450); RDW COEFFICIENT OF VARIATION 16.4 (11.5-15.0); RED BLOOD CELL COUNT(AUTO) 4.41 MIL/uL (4.5-6.0); WHITE BLOOD COUNT (AUTO) 7.2 K/uL (4.3-11.0)
[2017-06-25 05:47] LABS: CALCIUM, SERUM 8.9 mg/dL (8.5-10.1); CREATININE 0.4 mg/dL (0.6-1.3); MAGNESIUM 1.7 mg/dL (1.8-2.4); PHOSPHORUS 3.4 mg/dL (2.5-4.9)
--- NOTE | 2017-06-25 06:48 | NUR ---
QUANTITATIVE SOFTWARE ENGINEER DF VALPROIC ACID NON ADMIN DRUG NOT AVAIL DOSE OF 1500MG ONLY 250MG AVAIL AND DOSE AMOUNT NOT AVAILABLE IN NIGHT LOCKER.
[2017-06-25] MEDS: ACETYLCYSTEINE 10% SOLN 400 MG/4 ML VIAL NEB SCH ×3 (07:39→23:01)
--- NOTE | 2017-06-25 07:56 | NUR ---
RT PATIENT REC'D TRACHED ON [facility] VENT WITH SETTINGS SET BY MD GEE STALEY. FIO2 TITRATED TO 45%. VENT ALARMS CHECKED + AUDIBLE. CUFF PRESSURE CHECKED SHOWROOM SALESPERSON. SUCTIONED WITH MOD AMT GONZALES YELLOW SEMI THICK SECRETIONS. B/S COARSE. AMBU BAG AT [facility]. Addendum: 06/25/17 at 0901 by PANCHO SCHMITZ RT Amended: Links added.
--- NOTE | 2017-06-25 08:07 | NUR ---
INITIAL PRODUCT DEVELOPMENT ENGINEER NOTE RCVD PT AWAKE, OPENING EYES TO NAME, ABLE TO FOLLOW WITH EYES. SR/SB ON TELE. TOLERATING ORDERED VENT SETTINGS. NG TUBE PLACEMENT VERIFIED BY AUSCULTATION/ASPIRATION. NO RESIDUAL OBTAINED. NEWELL TO GRAVITY DRAINING CLEAR, YELLOW URINE. TAI PICC C/D/I/PATENT. IVF INFUSING TKO, PORTS FLUSHED. PT APPEARS TO HAVE WOUND OVER TRACH AREA WILL NOTIFY MD. TRACH DRESSING CHANGED, THICK GONZALES SECRETIONS OBSERVED.
[2017-06-25] MEDS: LEVOTHYROXINE SODIUM 88 MCG TABLET PO SCH (08:29)
[2017-06-25] MEDS: LACTOBACILLUS RHAMNOSUS GG 1 EACH CAP.SPRINK PO SCH ×2 (08:30→17:06)
[2017-06-25] MEDS: ENALAPRIL MALEATE (5 MG) 5 MG TABLET PO SCH (08:30)
[2017-06-25] MEDS: HYDROCHLOROTHIAZIDE 25 MG TABLET PO SCH (08:30)
[2017-06-25] MEDS: ATORVASTATIN 40 MG TABLET PO SCH (08:30)
[2017-06-25] MEDS: TOPIRAMATE 100 MG TABLET PO SCH (08:30)
[2017-06-25] MEDS: MULTIVITAMINS,THERAGRAN 1 UDTAB TABLET PO SCH (08:30)
[2017-06-25] MEDS: ACETAMINOPHEN 325 MG TABLET PO PRN ×2 (08:31→17:51)
[2017-06-25] MEDS: MORPHINE SULFATE INJ 4 MG/ML DISP.SYRIN IV PRN (08:32)
[2017-06-25] MEDS: ENOXAPARIN SODIUM 40 MG/0.4 ML DISP.SYRIN SQ SCH (08:32)
[2017-06-25] MEDS: CLOTRIMAZOLE/BETAMETASONE DIPROPIONATE 15 GM TUBE TP SCH ×2 (08:33→17:11)
[2017-06-25] MEDS: CIPROFLOXACIN HCL 0.3% 5 ML BOTTLE OT SCH ×2 (08:33→17:11)
[2017-06-25] MEDS: PROSOURCE / PROSTAT (PYXIS) 30 ML UDC GT SCH ×3 (08:34→17:06)
[2017-06-25] MEDS: PANTOPRAZOLE 40 MG VIAL IV SCH (08:35)
--- NOTE | 2017-06-25 09:17 | NUR ---
AUDIT REVIEWER NOTE DR. WALLACE IN UNIT DOING ROUNDS INFORMED OF PT'S TRACH SITE DEVELOPING A WOUND. HE RECOMMENDED TO TREAT WITH TRIPLE ABX AND NOTIFY DR. NANE. MESSAGE LEFT IN DR. ANNE'S OFFICE WITH DAX.
--- NOTE | 2017-06-25 12:18 | NUR ---
PRODUCTION ASSEMBLER NOTE TAYLOR JARVIS AND TAYLOR BAIRD IN UNIT DOING ROUNDS INFORMED OF PT'S TEMP 100.1 THIS AM. NO NEW ORDERS RCVD.
[2017-06-25] MEDS: Magnesium 1GM/D5W 100ML PREMIX 100 ML IV SCH ×2 (12:53→13:58)
[2017-06-25] MEDS: POTASSIUM CHLORIDE 20 MEQ POWDER PACKET NG SCH ×3 (12:53→15:26)
--- NOTE | 2017-06-25 13:57 | NUR ---
DESIGN SALES CONSULTANT NOTE DR. COX IN UNIT ASSESSING PT. HE STATES THAT WILL DO GASTROSTOMY TUBE PLACEMENT TOMORROW IF OR IS AVAILABLE. CALLED PT'S CONSERVATOR AND WAS UNABLE TO REACH HER, CALLED ALTERNATE PHONE # AND NOBODY PICKED UP THE PHONE ([phone]) UNABLE TO LEAVE VOICE MAIL.
[2017-06-25] MEDS: TOBRAMYCIN SULFATE OPHTH OINT 3.5 GM TUBE EACHEYE SCH ×2 (17:06→20:08)
--- NOTE | 2017-06-25 18:35 | NUR ---
FURNACE HAND NOTE PT REMAINS STABLE, SHOWING NO S/O DISTRESS/PAIN. PT'S SISTER AT BEDSIDE. SR ON TELE. TOLERATING ORDERED VENT SETTINGS. RIGHT NG TUBE PLACEMENT VERIFIED BY AUSCULTATION/ASPIRATION. NO RESIDUAL THROUGHOUT SHIFT. TAI PICC C/D/I/PATENT. NO S/O INFILTRATION/PHLEBITIS OBSERVED. IVF INFUSING TKO. PT'S CARE WILL BE ENDORSED TO XEROX MACHINE OPERATOR RN FOR CONTINUITY OF CARE. Addendum: 06/25/17 at 1838 by BRODIE WATT RN ADDENDUM TAYLOR BAIRD CONTACTED AND INFORMED ABOUT DR. COX's PLAN AND INABILITY OF OBTAINING INFORMED CONSENT FROM CONSERVATOR. Addendum: 06/25/17 at 1850 by BRODIE WATT RN ADDENDUM RESTRAINTS REMAIN IN PLACE. CIRCULATION CHECKS DONE.
--- NOTE | 2017-06-25 19:30 | NUR ---
RN INITIAL NOTES RECEIVED THE PATIENT AWAKE ON BED, HEAD JERKING MOVEMENT NOTED BUT PT IS A/O X1 AND ABLE TO FOLLOW SIMPLE COMMANDS. ON VENT, AC 16, TV 650, FIO2 45%, PEEP 5, SHILEY 8XLT, SATURATING WELL, NO S/S OF RESP DISTRESS. PT IS SR ON THE MONITOR, HR 60'S. RIGHT NARE NGT ON FIBERSOURCE FEEDING @ 40MLS/HR, NO RESIDUALS, TOLERATING WELL. NEWELL CATH INTACT. LEFT UPPER ARM PICC WITH TKO, FLUSHED AND PATENT, NO S/S OF INFILTRATION/INFECTION, DRESSING CDI. BED LOW AND LOCKED, SIDERAILS UP, BILATERAL WRIST RESTRAINTS IN PLACE FOR SAFETY, BED ALARM ON. WILL MONITOR CLOSELY
--- NOTE | 2017-06-25 20:44 | NUR ---
PT RECEIVED TRACH SHLY 8 XLT ON VENT. PT TOLERATING VENT SETTINGS. SX'D FOR MOD AMT OF THICK GONZALES SECRETIONS. VENT ALARMS SET AND AUDIBLE. TRACH CUFF CHIEF METER READER. VENT PLUGGED INTO RED OUTLET. AMBU BAG AT BEDSIDE. WILL CONTINUE TO MONITOR. Addendum: 06/25/17 at 2047 by AKBAR HENRIQUEZ RT Amended: Links added.
[2017-06-26] VITALS (30 sets, daily range): BP systolic 114–154; BP diastolic 63–95
[2017-06-26] MEDS: ALBUTEROL FS 2.5 MG/0.5 ML VIAL.NEB NEB SCH ×6 (03:14→23:38)
[2017-06-26] MEDS: IPRATROPIUM NEB FS 0.5 MG/2.5 ML AMPUL.NEB NEB SCH ×6 (03:14→23:38)
[2017-06-26] MEDS: VALPROIC ACID 250 MG/5 ML UDC GT SCH (04:28)
[2017-06-26 04:59] LABS: CALCIUM, SERUM 8.8 mg/dL (8.5-10.1); CREATININE 0.5 mg/dL (0.6-1.3); MAGNESIUM 1.7 mg/dL (1.8-2.4); POTASSIUM 3.6 mmol/L (3.5-5.1)
[2017-06-26] MEDS: IV NS 0.9% 250 ML IV PRN (05:40)
--- NOTE | 2017-06-26 06:20 | NUR ---
RN CLOSING NOTES PT REMAINS STABLE OF THE MOMENT. ALL DUE MEDS GIVEN, AM CARE PROVIDED. WILL ENDORSE KAELA TO AM RN
[2017-06-26 07:32] LABS: BASOPHILS % (AUTO) 0.5 % (0.0-2.0); EOSINOPHILS # (AUTO) 0.5 /CMM (0.0-0.7); EOSINOPHILS % (AUTO) 6.8 % (0.0-6.0); HEMATOCRIT 34 % (39-51); HEMOGLOBIN 11.4 g/dL (13.5-17.5); LYMPHOCYTES # (AUTO) 0.7 /CMM (0.8-4.8); LYMPHOCYTES % (AUTO) 10.2 % (20.0-44.0); MEAN CORPUSCULAR HEMOGLOBIN 27 PG (26.0-33.0); MEAN CORPUSCULAR HGB CONC 34 g/dl (31.0-36.0); MEAN CORPUSCULAR VOLUME 81 fL (80-96); MONOCYTES # (AUTO) 0.7 /CMM (0.1-1.30); MONOCYTES % (AUTO) 9.6 % (2.0-12.0); NEUTROPHILS # (AUTO) 5.1 /CMM (1.8-8.9); NEUTROPHILS % (AUTO) 72.9 % (43.0-81.0); PLATELET COUNT (AUTO) 417 /CMM (150-450); RDW COEFFICIENT OF VARIATION 16.1 (11.5-15.0); RED BLOOD CELL COUNT(AUTO) 4.19 MIL/uL (4.5-6.0)
[2017-06-26] MEDS: ACETYLCYSTEINE 10% SOLN 400 MG/4 ML VIAL NEB SCH ×3 (07:46→23:38)
[2017-06-26] MEDS: FIBERSOURCE HN 1,000 ML BOTTLE GT PRN (08:11)
[2017-06-26] MEDS: PANTOPRAZOLE 40 MG VIAL IV SCH (08:11)
[2017-06-26] MEDS: HYDROCHLOROTHIAZIDE 25 MG TABLET PO SCH (08:12)
[2017-06-26] MEDS: MULTIVITAMINS,THERAGRAN 1 UDTAB TABLET PO SCH (08:12)
[2017-06-26] MEDS: TOPIRAMATE 100 MG TABLET PO SCH (08:12)
[2017-06-26] MEDS: ATORVASTATIN 40 MG TABLET PO SCH (08:12)
[2017-06-26] MEDS: LEVOTHYROXINE SODIUM 88 MCG TABLET PO SCH (08:12)
[2017-06-26] MEDS: ENALAPRIL MALEATE (5 MG) 5 MG TABLET PO SCH (08:13)
[2017-06-26] MEDS: Z GUARD REMEDY 2 OZ OINT TP PRN (08:13)
[2017-06-26] MEDS: ENOXAPARIN SODIUM 40 MG/0.4 ML DISP.SYRIN SQ SCH (08:14)
[2017-06-26] MEDS: CLOTRIMAZOLE/BETAMETASONE DIPROPIONATE 15 GM TUBE TP SCH ×2 (08:14→16:01)
[2017-06-26] MEDS: PROSOURCE / PROSTAT (PYXIS) 30 ML UDC GT SCH ×3 (08:15→16:01)
[2017-06-26] MEDS: CIPROFLOXACIN HCL 0.3% 5 ML BOTTLE OT SCH ×2 (08:15→16:03)
[2017-06-26] MEDS: LACTOBACILLUS RHAMNOSUS GG 1 EACH CAP.SPRINK PO SCH ×2 (08:15→16:01)
[2017-06-26] MEDS: NEOMY SULF/BACITRAC ZN/POLY 15 GM TUBE TP SCH (08:16)
[2017-06-26] MEDS: TOBRAMYCIN SULFATE OPHTH OINT 3.5 GM TUBE EACHEYE SCH ×2 (08:17→16:02)
[2017-06-26] MEDS: Magnesium 1GM/D5W 100ML PREMIX 100 ML IV SCH ×2 (10:51→11:53)
--- NOTE | 2017-06-26 11:11 | NUR ---
WOUND CARE CONSULT: PT SEEN FOR TRACH STOMA WHICH IS VERY LARGE. DEFER TO SURGEON. PT ON BARIMAX BED WITH ETS AIR. ALL SKIN PROTECTION MEASURES IN PLACE AND DISCUSSED WITH NURSING STAFF. WILL SEE PRN. FITZGERALD IN AGREEMENT WITH PLAN OF CARE. Addendum: 06/26/17 at 1112 by SALTY TORRES WNDNU Amended: Links added.
--- NOTE | 2017-06-26 12:57 | NUR ---
HHN DEFERRED RT BUSY. ZERO DISTRESS NOTED.
[2017-06-26] MEDS ORDERED: VALPROATE 1,500 MG in IV D5W 100 ML IV ONE (14:30)
--- NOTE | 2017-06-26 17:51 | NUR ---
PROFILE GRINDER TECHNICIAN CLOSING NOTE NO ACUTE EVENTS DURING SHIFT. NPO FOR PEG PLACEMENT. LUE PICC CDI PATENT. NEWELL GOOD URINE OUTPUT NEGAR. BE IN LOW LOCKED POSITION. SIDE RAILS UP X2. WRIST RESTRAINTS FOR PROTECTION FROM PULLING LINES. WILL ENDORSE TO DUC RN.
--- NOTE | 2017-06-26 19:00 | NUR ---
MEAL COOK NOTES Received patient slightly lethargi c but arousablewith tracheostomy on the ventilator on AC mode.when awakens ,tries to mouth talk .PICC line via ZANA .Patient is morbidly obese on a special bed([facility]).comfort care done,needs attended. 2200 Status unchanged,patient stable ,for possible transfer to [facility]. 06/27/17 12am Transfered to [facility],stable
--- NOTE | 2017-06-26 20:26 | NUR ---
PT RECEIVED TRACH SHLY 8 XLT ON VENT. PT TOLERATING VENT SETTINGS. SX'D FOR MOD AMT OF THICK GONZALES SECRETIONS. VENT ALARMS SET AND AUDIBLE. TRACH CUFF LACTATION COORDINATOR. VENT PLUGGED INTO RED OUTLET. AMBU BAG AT BEDSIDE. WILL CONTINUE TO MONITOR. Addendum: 06/26/17 at 2025 by AKBAR HENRIQUEZ RT Amended: Links added.
[2017-06-26] MEDS: VALPROATE 1,500 MG in IV D5W 100 ML IV SCH (22:23)
[2017-06-27] VITALS (7 sets, daily range): BP systolic 119–142; BP diastolic 65–77
--- NOTE | 2017-06-27 01:00 | NUR ---
TELE 1 RN NOTE RECEIVED PT FROM ICU ON BARIMAX BED. REPORT RECEIVED FROM ICU NURSE FOR CONTINUE TO CARE DOWN GRADED TO TELE. PT IS ALERT RESPONDS TO VERBAL COMMANDS. NO SOB, NO DISTRESS OR DISCOMFORT NOTED. NO S/S OF PAIN NOTED. PT ON VENT/TRACH SHIELY XLT #8 AC 16 TV 650 FIO2 45 PEEP 5, SUCTIONED HIM THICK GREENISH COLOR SECRETIONS NOTED. ON TELE SR HR 80s. BILATERAL WRIST RESTRAINTS ON. PT IS TRYING TO PULL THE TUBES OUT. F/C INTACT AND PATENT DRAINING CLEAN YELLOWISH COLOR URINE. PT IS NPO. TAI WITH TRIPLE LUMEN CATH INTACT AND PATENT NS TKO. KEPT HEEL OFFLOAD. REPOSITION HIM FOR SKIN MANAGEMENT. SIDE RAILS UP X 3 AND CALL LIGHT WITHIN REACH. VSS. CONTINUE TO MONITOR HIM.
[2017-06-27] MEDS: ALBUTEROL FS 2.5 MG/0.5 ML VIAL.NEB NEB SCH ×6 (03:01→23:23)
[2017-06-27] MEDS: IPRATROPIUM NEB FS 0.5 MG/2.5 ML AMPUL.NEB NEB SCH ×6 (03:02→23:23)
[2017-06-27] MEDS: VALPROATE 1,500 MG in IV D5W 100 ML IV SCH ×3 (05:31→20:48)
--- NOTE | 2017-06-27 06:35 | NUR ---
TELE 1 RN NOTE PT IN BED AWAKE, NO DISTRESS OR DISCOMFORT NOTED. NO S/S OF PAIN NOTED. ON TELE SR. BILATERAL SOFT WRIST RESTRAINT ON. SIDE RAILS UP X 3 AND CALL LIGHT WITHIN REACH. WILL ENDORSE TO DAY SHIFT NURSE FOR CONTINUE TO CARE.
[2017-06-27 06:40] LABS: BASOPHILS % (AUTO) 0.5 % (0.0-2.0); EOSINOPHILS # (AUTO) 0.5 /CMM (0.0-0.7); HEMATOCRIT 35 % (39-51); HEMOGLOBIN 11.8 g/dL (13.5-17.5); LYMPHOCYTES % (AUTO) 14.4 % (20.0-44.0); MEAN CORPUSCULAR HEMOGLOBIN 27 PG (26.0-33.0); MEAN CORPUSCULAR HGB CONC 33 g/dl (31.0-36.0); MEAN CORPUSCULAR VOLUME 81 fL (80-96); MONOCYTES # (AUTO) 0.6 /CMM (0.1-1.30); MONOCYTES % (AUTO) 9.3 % (2.0-12.0); NEUTROPHILS # (AUTO) 4.6 /CMM (1.8-8.9); NEUTROPHILS % (AUTO) 68.8 % (43.0-81.0); PLATELET COUNT (AUTO) 419 /CMM (150-450); RDW COEFFICIENT OF VARIATION 16.4 (11.5-15.0); RED BLOOD CELL COUNT(AUTO) 4.35 MIL/uL (4.5-6.0); WHITE BLOOD COUNT (AUTO) 6.6 K/uL (4.3-11.0)
[2017-06-27 07:05] LABS: CALCIUM, SERUM 9.5 mg/dL (8.5-10.1); CREATININE 0.4 mg/dL (0.6-1.3); MAGNESIUM 1.9 mg/dL (1.8-2.4); PHOSPHORUS 4.2 mg/dL (2.5-4.9); POTASSIUM 3.5 mmol/L (3.5-5.1)
--- NOTE | 2017-06-27 07:36 | NUR ---
HABITAT MANAGEMENT COORDINATOR NOTES RECEIVED PT ON BED SLEEPING.ALERT ORIENTED X1. ON NPO STATUS. ON TELE MONITOR SR 80. ON MECH VENT TOLERATING WELL. NO SIGN OF RESPIRATORY DISTRESS. TAI PICCLINE TKO INFUSING WELL. HEAD OF BED ELEVATED. SIDE RAILS UP. CALL LIGHT WITHIN REACH. WILL CONTINUE TO MONITOR PT CLOSELY.
[2017-06-27] MEDS: ACETYLCYSTEINE 10% SOLN 400 MG/4 ML VIAL NEB SCH ×3 (07:44→23:23)
[2017-06-27] MEDS: PROSOURCE / PROSTAT (PYXIS) 30 ML UDC GT SCH ×3 (08:27→16:02)
[2017-06-27] MEDS: HYDROCHLOROTHIAZIDE 25 MG TABLET PO SCH (08:27)
[2017-06-27] MEDS: LACTOBACILLUS RHAMNOSUS GG 1 EACH CAP.SPRINK PO SCH ×2 (08:27→16:02)
[2017-06-27] MEDS: ATORVASTATIN 40 MG TABLET PO SCH (08:29)
[2017-06-27] MEDS: LEVOTHYROXINE SODIUM 88 MCG TABLET PO SCH (08:29)
[2017-06-27] MEDS: MULTIVITAMINS,THERAGRAN 1 UDTAB TABLET PO SCH (08:30)
[2017-06-27] MEDS: ENALAPRIL MALEATE (5 MG) 5 MG TABLET PO SCH (08:30)
[2017-06-27] MEDS: TOPIRAMATE 100 MG TABLET PO SCH (08:30)
[2017-06-27] MEDS: ENOXAPARIN SODIUM 40 MG/0.4 ML DISP.SYRIN SQ SCH (08:31)
[2017-06-27] MEDS: TOBRAMYCIN SULFATE OPHTH OINT 3.5 GM TUBE EACHEYE SCH ×2 (08:33→16:03)
[2017-06-27] MEDS: PANTOPRAZOLE 40 MG VIAL IV SCH (08:33)
[2017-06-27] MEDS: CIPROFLOXACIN HCL 0.3% 5 ML BOTTLE OT SCH ×2 (08:33→16:04)
[2017-06-27] MEDS: CLOTRIMAZOLE/BETAMETASONE DIPROPIONATE 15 GM TUBE TP SCH ×2 (08:33→16:03)
[2017-06-27] MEDS: NEOMY SULF/BACITRAC ZN/POLY 15 GM TUBE TP SCH (08:34)
--- NOTE | 2017-06-27 09:12 | NUR ---
INGREDIENT SPECIALIST NOTES CALLED THE BROTHER AND SISTER FOR TELEPHONE INFORMED CONSENT. UNABLE TO REACH FAMILY MEMBER. LEAVED A MESSAGE ABOUT THE SURGERY AND ASK THEM TO CALL BACK.
--- NOTE | 2017-06-27 10:07 | NUR ---
PLANT UTILITIES ENGINEER NOTES CALLED DR LIZ FOR ANESTHESIA CONSENT. UNABLE TO REACH DR LIZ.
[2017-06-27] MEDS ORDERED: CLINDAMYCIN 900 MG in IV D5W 50 ML IV ONE (13:00)
[2017-06-27] MEDS ORDERED: PROPOFOL 20 ML IV ONE (13:12)
[2017-06-27] MEDS ORDERED: IV NS 0.9% 1,000 ML BAG IV SCH (15:00)
--- NOTE | 2017-06-27 15:24 | NUR ---
EXPLOSIVES OPERATOR NOTES PT AGITATED AND TRYING TO GET OUT OF HIS RESTRAINTS.
--- NOTE | 2017-06-27 15:31 | NUR ---
MAIL HANDLER EQUIPMENT OPERATOR NOTES PT REFUSED BED BATH AND WOUND CARE. PT IS RESTLESS.
[2017-06-27] MEDS: FIBERSOURCE HN 1,000 ML BOTTLE GT PRN (16:03)
--- NOTE | 2017-06-27 17:30 | NUR ---
PATIENT STABLE ON MECHANICAL VENTILATION T/O SHIFT. MODERATE THICK YELLOW SECRETIONS NOTED. ALARMS ON AND AUDIBLE. TRACH SECURED AND PATENT. JAVIER XLT TRACH IN PLACE. AMBU BAG @ BEDSIDE. NO SOB NOTED. TRACH CARE DONE.
--- NOTE | 2017-06-27 17:35 | NUR ---
KRISS GILLILAND NOTES PT REFUSED TO PUT THE NASAL CANNULA . EXPLAINED THE BENEFITS OF HAVING NASAL CANNULA. PT STILL REFUSED AND AGITATED. Addendum: 06/27/17 at 1846 by AKBAR LOPEZ RN WRONG PT.
--- NOTE | 2017-06-27 18:47 | NUR ---
STUDIO MUSICIAN NOTES NO ACUTE CHANGES NOTED DURING THE SHIFT. DUE MEDS GIVEN. SIDE RAILS UP. HEAD OF BED ELEVATED. VENT SETTING TOLERATING WELL NO SIGN OF RESPIRATORY DISTRESS. WOUND CARE DONE. WILL ENDORSE TO THE PM NURSE.
[2017-06-27] MEDS: IV NS 0.9% 1,000 ML IV PRN (18:55)
--- NOTE | 2017-06-27 19:29 | NUR ---
FILLER MACHINE OPERATOR OPENING NOTES: RECEIVED PT IN BED IN SEMI SUN'S POSITION. PT ON BILATERAL RESTRAINTS. PT ON SHILEY #8XLT WITH SETTINGS: AC 16, TV 650, FIO2 45%, AND PEEP 5. PT IS OBTUNDED. PN ON TELE BOX. PT HAS NEWELL CATH AND IS ATTACHED TO DRAINAGE BAG WITH YELLOW URINE DRAINING. BED ALARM ACTIVATED. PT HAS G TUBE AND IS ON FIBERSOURCE FEEDING AT 40ML/HR. PT HAS TAI PICC LINE AND IS BEING INFUSED WITH NS AT 75ML/HR. CALL LIGHT WITHIN PT'S REACH. BED KEPT IN LOW, LOCKED POSITION, AND SIDE RAILS X3 UP. WILL CONTINUE TO MONITOR PT.
[2017-06-28] VITALS: BP 100/76
[2017-06-28] MEDS: ALBUTEROL FS 2.5 MG/0.5 ML VIAL.NEB NEB SCH ×6 (03:31→22:54)
[2017-06-28] MEDS: IPRATROPIUM NEB FS 0.5 MG/2.5 ML AMPUL.NEB NEB SCH ×6 (03:31→22:54)
[2017-06-28 04:00] VITALS: BP 104/68
[2017-06-28] MEDS: IV NS 0.9% 1,000 ML IV PRN (04:07)
[2017-06-28] MEDS: VALPROATE 1,500 MG in IV D5W 100 ML IV SCH ×3 (04:07→20:40)
--- NOTE | 2017-06-28 07:22 | NUR ---
CORPORATE ACCOUNTING MANAGER NOTES RECEIVED PT ON BED SLEEPING. ALERT ORIENTED X2. ON TELE MONITOR SR HR 65. [facility] SETTING TOLERATING WELL NO SIGN OF RESPIRATORY DISTRESS. IV ACCESS TAI PICC LINE NO SIGN OF REDNESS OR INFECTION. CALL LIGHT WITHIN REACH. SIDE RAILS UP. HEAD OF BED ELEVATED. WILL CONTINUE TO MONITOR PT CLOSELY.
--- NOTE | 2017-06-28 07:37 | NUR ---
DIE SINKER CLOSING NOTES: ALL NEEDS WERE ATTENDED AND ANTICIPATED FOR. PT REMAINS ON VENT AND SETTING REMAINS THE SAME. PT ON G TUBE FEEDING. NO RESIDUAL NOTED. PT ON FIBERSOURCE 40ML/HR. PT ON NEWELL CATH AND IS ATTACHED TO DRAINAGE BAG WITH YELLOW URINE DRAINAGE. OUTPUT WAS 425 ML. PT TURNED AND REPOSITIONED Q2HRS. PT REMAINS ON BILATERAL RESTRAINTS. 2 HOUR CHECKS PERFORMED. PT HAS PICC LINE AND IS BEING INFUSED WITH NS AT 75ML/HR. THROUGHOUT SHIFT, PT WAS SINUS GIOVANNY 45- SR. PT SUCTIONED PRN. ENDORSED TO AM NURSE FOR KAELA.
[2017-06-28 08:00] VITALS: BP 136/73
[2017-06-28] MEDS: TOBRAMYCIN SULFATE OPHTH OINT 3.5 GM TUBE EACHEYE SCH ×2 (08:01→16:02)
[2017-06-28] MEDS: PROSOURCE / PROSTAT (PYXIS) 30 ML UDC GT SCH ×3 (08:01→16:02)
[2017-06-28] MEDS: CLOTRIMAZOLE/BETAMETASONE DIPROPIONATE 15 GM TUBE TP SCH ×2 (08:01→16:01)
[2017-06-28] MEDS: CIPROFLOXACIN HCL 0.3% 5 ML BOTTLE OT SCH ×2 (08:02→16:02)
[2017-06-28] MEDS: NEOMY SULF/BACITRAC ZN/POLY 15 GM TUBE TP SCH (08:02)
[2017-06-28] MEDS: ENOXAPARIN SODIUM 40 MG/0.4 ML DISP.SYRIN SQ SCH (08:03)
[2017-06-28] MEDS: LEVOTHYROXINE SODIUM 88 MCG TABLET PO SCH (08:04)
[2017-06-28] MEDS: ATORVASTATIN 40 MG TABLET PO SCH (08:04)
[2017-06-28] MEDS: ACETYLCYSTEINE 10% SOLN 400 MG/4 ML VIAL NEB SCH ×3 (08:04→22:54)
[2017-06-28] MEDS: PANTOPRAZOLE 40 MG VIAL IV SCH (08:05)
[2017-06-28] MEDS: TOPIRAMATE 100 MG TABLET PO SCH (08:05)
[2017-06-28] MEDS: HYDROCHLOROTHIAZIDE 25 MG TABLET PO SCH (08:05)
[2017-06-28] MEDS: LACTOBACILLUS RHAMNOSUS GG 1 EACH CAP.SPRINK PO SCH ×2 (08:06→16:01)
[2017-06-28] MEDS: ENALAPRIL MALEATE (5 MG) 5 MG TABLET PO SCH (08:06)
[2017-06-28] MEDS: MULTIVITAMINS,THERAGRAN 1 UDTAB TABLET PO SCH (08:06)
--- NOTE | 2017-06-28 10:11 | NUR ---
RT PATIENT RECEIVED TRACH'D WITH SHILEY #8 XLT CUFFED ON VENT WITH SETTINGS PER MD ORDER. LIFTER DRIVER DONE. BREATH SOUNDS RHONCHI ON AUSCULTATION. VENT PLUGGED INTO RED OUTLET. SUCTIONED SMALL AMOUNTS OF THICK PALE YELLOW/ GONZALES SECRETIONS. ALARMS ON AND FUNCTIONING PROPERLY. BREATHING TX'S GIVEN ORDERED. NO ADVERSE REACTIONS OBSERVED. NO SOB OR SIGNS OF DISTRESS NOTED AT THIS TIME. WILL CONTINUE TO MONITOR THE PATIENT FOR ANY CHANGES. Addendum: 06/28/17 at 1414 by RADHA ELMORE RT Amended: Links added.
--- NOTE | 2017-06-28 11:00 | NUR ---
CASINO CASHIER NOTES DR WALLACE NOTIFIED ABOUT PT HAVING ASYMPTOMATIC BRADYCARDIA 49-55S. WILL CONTINUE TO MONITOR PT CLOSELY.
[2017-06-28 12:00] VITALS: BP 133/83
--- NOTE | 2017-06-28 15:50 | NUR ---
CHIEF COMPRESSOR STATION ENGINEER NOTES PT POSITIVE FOR MRSA NARES. REPORTED BY LEONEL. INFORMED THE CHARGE NURSE ABOUT THE TEST REULTS/
[2017-06-28] MEDS: FIBERSOURCE HN 1,000 ML BOTTLE GT PRN (15:59)
[2017-06-28 16:00] VITALS: BP 138/81
--- NOTE | 2017-06-28 18:37 | NUR ---
SHEETMETAL PATTERNMAKER NOTES NO ACUTE CHANGES NOTED DURING THE SHIFT. ON VENT SETTING TOLERATING WELL NO SIGN OF RESPIRATORY DISTRESS. WOUND CARE DONE. BED BATH DONE. SIDE RAILS UP. HEAD OF BED ELEVATED. DUE MEDS DONE. WILL ENDORSED TO THE PM NURSE.
--- NOTE | 2017-06-28 19:40 | NUR ---
SYSTEMS ACCOUNTANT NOTE: PATIENT RESTING IN BED, NO ACUTE DISTRESS NOTED. BREATHING EVEN AND UNLABORED, NO SOB NOTED AT THIS TIME. VENT SETTING IN PLACE, O2 SAT 98%. TELE READING SR 60. PICC LINE TO TAI IN PLACE, INFUSING NS AT 75 ML/HR. G-TUBE IN PLACE, WITH 10ML OF RESIDUAL, INFUSING FIBERSOURCE AT 40 ML/HR, HOB ELEVATED NEWELL CATHETER IN PLACE DRAINING CLEAR YELLOW URINE. ISOLATION PRECAUTION OBSERVED. BED LOCKED AND IN LOWEST POSITION, CALL LIGHT IN REACH. WILL CONTINUE TO MONITOR.
[2017-06-28 20:15] VITALS: BP 138/78
[2017-06-28] MEDS: MUPIROCIN OINT 2% 22 GM TUBE SCH (20:40)
--- NOTE | 2017-06-28 21:56 | NUR ---
tele,trach/vent. Was not accepted at [facility] due to patient weight/morbidly obese. Referral faxed to James Sandoval at [facility] [phone]. Jim will assess patient in am. Addendum: 06/28/17 at 2156 by FELA SHIPLEY RN Amended: Links added.
[2017-06-29 00:15] VITALS: BP 141/72
--- NOTE | 2017-06-29 00:30 | NUR ---
ESCALATOR CONSTRUCTOR NOTE: PATIENT TOLERATING G-TUBE FEEDING WITH RESIDUAL 5-10ML, INCREASED FIBERSOURCE TO 45 ML/HR, HOB ELEVATED. WILL CONTINUE TO MONITOR.
[2017-06-29] MEDS: ALBUTEROL FS 2.5 MG/0.5 ML VIAL.NEB NEB SCH ×6 (04:03→23:35)
[2017-06-29] MEDS: IPRATROPIUM NEB FS 0.5 MG/2.5 ML AMPUL.NEB NEB SCH ×6 (04:03→23:35)
[2017-06-29 04:15] VITALS: BP 106/73
[2017-06-29] MEDS: IV NS 0.9% 1,000 ML IV PRN ×2 (04:54→16:08)
[2017-06-29] MEDS: VALPROATE 1,500 MG in IV D5W 100 ML IV SCH ×3 (05:45→19:58)
--- NOTE | 2017-06-29 06:15 | NUR ---
RIGGING MAN NOTE: PATIENT RESTING IN BED, NO ACUTE DISTRESS NOTED. BREATHING EVEN AND UNLABORED, NO SOB NOTED AT THIS TIME. VENT SETTING IN PLACE, O2 SAT 98%. TELE READING SR 60. PICC LINE TO TAI IN PLACE, INFUSING NS AT 75 ML/HR. G-TUBE IN PLACE, INFUSING FIBERSOURCE AT 45 ML/HR, HOB ELEVATED NEWELL CATHETER IN PLACE DRAINING CLEAR YELLOW URINE. ISOLATION PRECAUTION OBSERVED. BED LOCKED AND IN LOWEST POSITION, CALL LIGHT IN REACH. WILL ENDORSE TO DAY NURSE TO CONTINUE WITH PLAN OF CARE.
--- NOTE | 2017-06-29 07:15 | NUR ---
GRAPE CRUSHER NOTES RECEIVED PT ON BED SLEEPING. A/0X2. [facility] TOLER[facility] WELL. NO SIGN OF RESPIRATORY DISTRESS.ON TELE MONITOR SR 50-60 HR. IV ACCESS TAI PICC LINE FLUID RUNNING AT NS 75ML/HR INFUSING WELL NO SIGN OF INFECTION OR REDNESS. SIDE RAILS UP. HEAD OF BED ELEVATED. CALL LIGHT WITHIN REACH. WILL CONTINUE TO MONITOR PT CLOSELY.
[2017-06-29] MEDS: ACETYLCYSTEINE 10% SOLN 400 MG/4 ML VIAL NEB SCH ×3 (07:57→23:35)
[2017-06-29 08:00] VITALS: BP_SYST 147; BP_SYST 157; BP_DIAS 80
[2017-06-29] MEDS: LEVOTHYROXINE SODIUM 88 MCG TABLET PO SCH (08:03)
[2017-06-29] MEDS: ATORVASTATIN 40 MG TABLET PO SCH (08:03)
[2017-06-29] MEDS: PANTOPRAZOLE 40 MG VIAL IV SCH (08:03)
[2017-06-29] MEDS: MULTIVITAMINS,THERAGRAN 1 UDTAB TABLET PO SCH (08:03)
[2017-06-29] MEDS: ENALAPRIL MALEATE (5 MG) 5 MG TABLET PO SCH (08:04)
[2017-06-29] MEDS: HYDROCHLOROTHIAZIDE 25 MG TABLET PO SCH (08:04)
[2017-06-29] MEDS: LACTOBACILLUS RHAMNOSUS GG 1 EACH CAP.SPRINK PO SCH ×2 (08:04→16:08)
[2017-06-29] MEDS: PROSOURCE / PROSTAT (PYXIS) 30 ML UDC GT SCH ×3 (08:05→16:08)
[2017-06-29] MEDS: CLOTRIMAZOLE/BETAMETASONE DIPROPIONATE 15 GM TUBE TP SCH ×2 (08:05→16:10)
[2017-06-29] MEDS: Z GUARD REMEDY 2 OZ OINT TP PRN (08:05)
[2017-06-29] MEDS: CIPROFLOXACIN HCL 0.3% 5 ML BOTTLE OT SCH ×2 (08:05→16:10)
[2017-06-29] MEDS: NEOMY SULF/BACITRAC ZN/POLY 15 GM TUBE TP SCH (08:06)
[2017-06-29] MEDS: TOBRAMYCIN SULFATE OPHTH OINT 3.5 GM TUBE EACHEYE SCH ×2 (08:06→16:09)
[2017-06-29] MEDS: ENOXAPARIN SODIUM 40 MG/0.4 ML DISP.SYRIN SQ SCH (08:10)
[2017-06-29] MEDS: TOPIRAMATE 100 MG TABLET PO SCH (08:17)
[2017-06-29] MEDS: MUPIROCIN OINT 2% 22 GM TUBE SCH ×2 (08:17→20:05)
[2017-06-29 12:00] VITALS: BP 157/80
[2017-06-29 16:00] VITALS: BP 152/74
[2017-06-29] MEDS: FIBERSOURCE HN 1,000 ML BOTTLE GT PRN (16:08)
[2017-06-29] MEDS: ACETAMINOPHEN 325 MG TABLET PO PRN (17:39)
--- NOTE | 2017-06-29 18:36 | NUR ---
CHIEF WRITER NOTES PT TEMPT IS 99.9. GIVEN ACETAMINOPHEN 625MG PRN
--- NOTE | 2017-06-29 18:37 | NUR ---
MS RN NOTES NO ACUTE CHANGES NOTED DURING THE SHIFT.ALERT ORIENTED X2. [facility] TOLER[facility] WELL. SATURATING 94%. PROVIDED COMFORT. DUE MEDS GIVEN. SIDE RAILS UP. HEAD OF BED ELEVATED. WILL ENDORSED TO THE PM NURSE FOR KAELA.
--- NOTE | 2017-06-29 19:15 | NUR ---
STONE DRESSER NOTES PRESSURE ERROR IN MECHANICAL VENTILATOR. REPORTED TO THE RT.
--- NOTE | 2017-06-29 19:28 | NUR ---
RN OPENING NOTE RECEIVED PATIENT IN THE BED, AWAKE, CONFUSED, BILATERAL RESTRAINTS, NO ACUTE RESPIRATORY DISTRESS NOTED, ONGOING IV FLUIDS, WAS REPORTED BY AM NURSE THAT PRESSURE ERROR IN MECHANICAL VENTILATOR AND AM NURSE REPORTED TO THE RT, RT HAS EVALUATED THE MACHINE AND NO PROBLEMS WAS FOUND, HR 59 SINUS BRADYCARDIA ON THE MONITOR, BED IN THE LOW POSITION, CALL LIGHT WITHIN REACH, WILL CONTINUE TO MONITOR PATIENT
[2017-06-29 20:00] VITALS: BP 144/90
--- NOTE | 2017-06-29 20:30 | NUR ---
RN NOTE TEMPERATURE 100.7 APPLIED ICE PACKS, RECHECKED TEMPERATURE 98.6
--- NOTE | 2017-06-29 22:19 | NUR ---
RN NOTE PROVIDED REPORT TO LEILA GILLILAND NURSE, PATIENT WILL BE UNDER HER CARE
[2017-06-30] VITALS: BP 144/73
[2017-06-30] MEDS: ACETAMINOPHEN 325 MG TABLET PO PRN (01:13)
[2017-06-30] MEDS: ALBUTEROL FS 2.5 MG/0.5 ML VIAL.NEB NEB SCH ×6 (02:49→22:58)
[2017-06-30] MEDS: IPRATROPIUM NEB FS 0.5 MG/2.5 ML AMPUL.NEB NEB SCH ×6 (02:49→22:58)
[2017-06-30 04:04] VITALS: BP 127/75
[2017-06-30] MEDS: VALPROATE 1,500 MG in IV D5W 100 ML IV SCH ×3 (04:13→20:36)
--- NOTE | 2017-06-30 06:16 | NUR ---
RECEIVED PT TRACHED ON VENT ON NOTED SETTINGS. NO DISTRESS NOTED. VENT/ ALARMS WELL FUNCTIONING. Q4 TX GIVEN. NO CHANGES NOTED IN PT STATUS. SX PRN MOD. THICK YELLOW SECRETIONS. Addendum: 06/30/17 at 0616 by BI STEPHEN RT Amended: Links added.
--- NOTE | 2017-06-30 06:43 | NUR ---
UTILITY ASSEMBLER CLOSING NOTES PT IN BED, AWAKE,TRACH PATENT, NO RESPIRATORY DISTRESS NOTED. RESPIRATIONS EVEN, UNLABORED.GT IN PLACE TOLERATES GTF WELL, NO N/V NOTED HOB ELEVATED. TAI PICCLINE INTACT,PATENT. ON NS AT75ML/HR. AFEBRILE AT THIS TIME F/C IN PLACE DRAINING WELL.NO S/SX OF PAIN OR DISCOMFORT NOTED AT THIS TIME.KEPT CLEAN AND COMFORTABLE,TURNED AND REPOSITIONED Q2H, PROPER BODY ALIGNMENT MAINTAINED.ATTENDED ALL NEEDSWILL CONTINUE TO MONITOR ACCORDINGLY
--- NOTE | 2017-06-30 07:41 | NUR ---
EIGHT SECTION BLOWER NOTES PATIENT IN BED, ABLE TO OPEN EYES, NON VERBAL. ON TELE MONITOR, SINUS RHYTHM HR62. TRACH INTACT, ON VENT. TAI PICC LINE PATENT AND INTACT, IVF NS INFUSING AT 75ML/HR. ABDOMEN PRESENCE OF GTUBE, ON GTUBE FEEDING FIBERSOURCE AT 40ML/HR. ON KAYLYNN MATTRESS. WILL CONT TO MONITOR.
[2017-06-30 08:00] VITALS: BP 124/66
[2017-06-30] MEDS: ACETYLCYSTEINE 10% SOLN 400 MG/4 ML VIAL NEB SCH ×3 (08:09→22:58)
[2017-06-30] MEDS: ENOXAPARIN SODIUM 40 MG/0.4 ML DISP.SYRIN SQ SCH (08:37)
[2017-06-30] MEDS: ATORVASTATIN 40 MG TABLET PO SCH (08:38)
[2017-06-30] MEDS: LACTOBACILLUS RHAMNOSUS GG 1 EACH CAP.SPRINK PO SCH ×2 (08:38→16:25)
[2017-06-30] MEDS: ENALAPRIL MALEATE (5 MG) 5 MG TABLET PO SCH (08:39)
[2017-06-30] MEDS: TOPIRAMATE 100 MG TABLET PO SCH (08:39)
[2017-06-30] MEDS: MULTIVITAMINS,THERAGRAN 1 UDTAB TABLET PO SCH (08:39)
[2017-06-30] MEDS: PANTOPRAZOLE 40 MG VIAL IV SCH (08:39)
[2017-06-30] MEDS: HYDROCHLOROTHIAZIDE 25 MG TABLET PO SCH (08:40)
[2017-06-30] MEDS: LEVOTHYROXINE SODIUM 88 MCG TABLET PO SCH (08:50)
[2017-06-30] MEDS: CIPROFLOXACIN HCL 0.3% 5 ML BOTTLE OT SCH ×2 (08:51→16:26)
[2017-06-30] MEDS: TOBRAMYCIN SULFATE OPHTH OINT 3.5 GM TUBE EACHEYE SCH ×2 (08:52→16:26)
[2017-06-30] MEDS: MUPIROCIN OINT 2% 22 GM TUBE SCH ×2 (08:53→20:38)
[2017-06-30] MEDS: PROSOURCE / PROSTAT (PYXIS) 30 ML UDC GT SCH ×3 (08:57→16:28)
[2017-06-30] MEDS: IV NS 0.9% 1,000 ML IV PRN (10:10)
[2017-06-30] MEDS: NEOMY SULF/BACITRAC ZN/POLY 15 GM TUBE TP SCH (10:13)
--- NOTE | 2017-06-30 10:14 | NUR ---
GUTBE INTACT, RESIDUAL 10CC. INCREASE RATE TO 45ML/HR, WILL CONT TO MONITOR, GOAL 55ML/HR.
[2017-06-30 12:00] VITALS: BP 137/80
--- NOTE | 2017-06-30 12:15 | NUR ---
PATIENT TO BE DISCHARGED TO SUB ACUTE FACILITY. CM IS AWARE.
[2017-06-30] MEDS: CLOTRIMAZOLE/BETAMETASONE DIPROPIONATE 15 GM TUBE TP SCH ×2 (12:58→16:27)
--- NOTE | 2017-06-30 13:00 | NUR ---
RELEASED BILATERAL WRIST RESTRAINTS, GOOD CIRCULATION, ABLE TO MOVE ANAYELI HANDS WITHOUT DIFFICULTY. PATIENT ATTEMPTED TO REMOVED TUBINGS, AND IVC LINE. CONTINUE WRIST RESTRAINTS ORDERED. WILL CONT TO MONITOR CIRCULATION IN BILATERAL HANDS.
[2017-06-30 16:00] VITALS: BP 105/56
[2017-06-30] MEDS: FIBERSOURCE HN 1,000 ML BOTTLE GT PRN (16:41)
--- NOTE | 2017-06-30 18:25 | NUR ---
PT REMAINS MECHANICALLY VENTILATED. SETTINGS PRESCRIBED. ALARMS SET PER PROTOCOL AND AUDIBLE. VENT PLUGGED IN TO RED OUTLET. AMBU BAG AT BED SIDE. NO DISTRESS NOTED. Addendum: 06/30/17 at 1827 by HANNAH WHEELER RT Amended: Links added.
--- NOTE | 2017-06-30 18:37 | NUR ---
PENSION CONSULTANT CLOSING NOTES PATIENT IN BED, AWAKE, NON VERBAL. ON TELE MONITOR SINUS RHYTHM HR 82, VENT SETTINGS REMAINS THE SAME. TRACH INTACT, SUCTION PRN. ON FIBERSOURCE AT 55ML/HR (GOAL), TOLERATING WELL, NO EPISODE OF VOMITING, NO DIARRHEA. NEWELL CATH IN PLACE, DRAINING TO GRAVITY. URINE SENT TO LAB FOR TEST ORDERED, RESULT PENDING. PATIENT TO BE DISCHARGED TO SUB ACUTE REHAB. CM FOR PLACEMENT. WILL ENDORSE TO TREE PRUNER RN FOR KAELA.
[2017-06-30 20:00] VITALS: BP 142/82
[2017-07-01] VITALS: BP 131/70
--- NOTE | 2017-07-01 01:57 | NUR ---
RECEIVED PT TRACHED ON VENT ON NOTED SETTINGS. NO DISTRESS NOTED. VENT ALARMS SET AND AUDIBLE THROUGHOUT ICU UNIT. Q4 TX GIVEN. NO CHANGES NOTED IN PT STATUS. SX PRN MOD. THICK YELLOW SECRETIONS AMBUBAG AT HOB. MECHANICAL VENTILATOR PLUGGED INTO RED OUTLET Addendum: 07/01/17 at 0159 by NITZA FOLEY RT Amended: Links added.
--- NOTE | 2017-07-01 02:23 | NUR ---
RN NOTES RECEIVED PATIENT IN BED AWAKE WITH NO DISTRESS NOTED. BREATHING EVEN AND UNLABORED. PATIENT ALERT TO SELF, NON VERBAL. NO PHYSICAL MANIFESTATION OF PAIN OR DISCOMFORT. VITAL SIGNS WNL. FEEDING WELL TOLERATED. KEPT CLEAN AND DRY. WILL CONTINUE TO MONITOR.
[2017-07-01] MEDS: ALBUTEROL FS 2.5 MG/0.5 ML VIAL.NEB NEB SCH ×6 (03:33→23:52)
[2017-07-01] MEDS: IPRATROPIUM NEB FS 0.5 MG/2.5 ML AMPUL.NEB NEB SCH ×6 (03:33→23:52)
[2017-07-01 04:00] VITALS: BP 133/66
[2017-07-01] MEDS: IV NS 0.9% 1,000 ML IV PRN ×2 (05:00→21:12)
[2017-07-01] MEDS: VALPROATE 1,500 MG in IV D5W 100 ML IV SCH ×3 (05:00→21:12)
--- NOTE | 2017-07-01 07:05 | NUR ---
RN INITIAL NOTE PATIENT RECEIVED IN BED. PATIENT HAS TRACH: SHILEY #8. TOLERATING VENT SETTINGS WELL. NON-VERBAL. NEWELL CATHETER DRAINING TO GRAVITY. GTUBE FLUSHED, PATENT. PLACEMENT VERIFIED. FIBERSOURCE RUNNING AT 55ML/HR. TOLERATING FEEDING WELL. SKIN IS WARM AND DRY TO TOUCH. IV SITE FLUSHED, PATENT. SAFETY PRECAUTIONS IMPLEMENTED, BED IN LOCKED, LOW POSITION WITH TWO SIDE RAILS UP. CALL LIGHT WITHIN EASY REACH. WILL CONTINUE TO MONITOR.
[2017-07-01 08:00] VITALS: BP 128/74
[2017-07-01] MEDS: ACETYLCYSTEINE 10% SOLN 400 MG/4 ML VIAL NEB SCH ×3 (08:10→23:52)
--- NOTE | 2017-07-01 08:11 | NUR ---
PT. RECEIVED ON VENT SUPPORT VIA TRACH WITH PARAMETERS BELLOW ORDER: AC 16 VT 650 FIO2 45% PEEP +5 B/S COURSE RHONCHI BILATERAL, SXN LARGE AMNT FOAMY WHITISH SECRETIONS. VENT PLUGGED INTO RED OUTLET [facility] ALARMS ON AND FUNCTIONING. SIMI @ HOB. Addendum: 07/01/17 at 1752 by IBETH SNYDER RT Amended: Links added.
[2017-07-01] MEDS: LEVOTHYROXINE SODIUM 88 MCG TABLET PO SCH (08:21)
[2017-07-01] MEDS: PANTOPRAZOLE 40 MG VIAL IV SCH (08:21)
[2017-07-01] MEDS: ATORVASTATIN 40 MG TABLET PO SCH (08:21)
[2017-07-01] MEDS: MULTIVITAMINS,THERAGRAN 1 UDTAB TABLET PO SCH (08:21)
[2017-07-01] MEDS: LACTOBACILLUS RHAMNOSUS GG 1 EACH CAP.SPRINK PO SCH ×2 (08:21→17:11)
[2017-07-01] MEDS: TOPIRAMATE 100 MG TABLET PO SCH (08:22)
[2017-07-01] MEDS: HYDROCHLOROTHIAZIDE 25 MG TABLET PO SCH (08:23)
[2017-07-01] MEDS: ENALAPRIL MALEATE (5 MG) 5 MG TABLET PO SCH (08:23)
[2017-07-01] MEDS: ENOXAPARIN SODIUM 40 MG/0.4 ML DISP.SYRIN SQ SCH (08:25)
[2017-07-01] MEDS: PROSOURCE / PROSTAT (PYXIS) 30 ML UDC GT SCH ×3 (08:26→17:11)
[2017-07-01] MEDS: MUPIROCIN OINT 2% 22 GM TUBE SCH ×2 (08:26→21:14)
[2017-07-01] MEDS: NEOMY SULF/BACITRAC ZN/POLY 15 GM TUBE TP SCH (08:27)
[2017-07-01] MEDS: CIPROFLOXACIN HCL 0.3% 5 ML BOTTLE OT SCH ×2 (08:27→17:12)
[2017-07-01] MEDS: TOBRAMYCIN SULFATE OPHTH OINT 3.5 GM TUBE EACHEYE SCH ×2 (08:27→17:12)
[2017-07-01] MEDS: CLOTRIMAZOLE/BETAMETASONE DIPROPIONATE 15 GM TUBE TP SCH ×2 (08:28→17:12)
[2017-07-01 12:00] VITALS: BP 124/68
[2017-07-01 16:00] VITALS: BP 137/77
[2017-07-01] MEDS: HYDROCODONE/APAP 5/325MG 1 EACH TABLET PO PRN (18:51)
[2017-07-01] MEDS: FIBERSOURCE HN 1,000 ML BOTTLE GT PRN (18:51)
[2017-07-01 20:00] VITALS: BP_SYST 125; BP_SYST 127; BP_DIAS 75
[2017-07-02] VITALS: BP_SYST 125; BP_SYST 126; BP_DIAS 55; BP_DIAS 75
[2017-07-02] MEDS: ALBUTEROL FS 2.5 MG/0.5 ML VIAL.NEB NEB SCH ×6 (03:34→23:33)
[2017-07-02] MEDS: IPRATROPIUM NEB FS 0.5 MG/2.5 ML AMPUL.NEB NEB SCH ×6 (03:34→23:33)
[2017-07-02 04:00] VITALS: BP 118/58
[2017-07-02] MEDS: VALPROATE 1,500 MG in IV D5W 100 ML IV SCH (04:17)
--- NOTE | 2017-07-02 07:30 | NUR ---
AUTOMATION AND CONTROLS INSTRUCTOR OPENING NOTES AAO3. HOB ELEVATED. NEWELL PATENT DRAINING URINE HUNG BELOW BLADDER NO INDEPENDENT LOOPS. GT FEED 40 ML /HR. NS @75ML/HR TAI PICC. PERINEAL REDNESS. HI BRUNO TRACH NON LABORED RESP. BED IN LOW LOCKED POSITION. SIDE RAILS UP X 2. CALL LIGHT IN REACH. ISOLATION PREC MRSA NARES. WILL CONT TO MONITOR CLOSELY.
[2017-07-02] MEDS: ACETYLCYSTEINE 10% SOLN 400 MG/4 ML VIAL NEB SCH ×3 (07:53→23:33)
[2017-07-02 08:00] VITALS: BP_SYST 128; BP_SYST 179; BP_DIAS 103; BP_DIAS 65
[2017-07-02] MEDS: PANTOPRAZOLE 40 MG VIAL IV SCH (08:02)
[2017-07-02] MEDS: ENOXAPARIN SODIUM 40 MG/0.4 ML DISP.SYRIN SQ SCH (08:02)
[2017-07-02] MEDS: ENALAPRIL MALEATE (5 MG) 5 MG TABLET PO SCH (08:03)
[2017-07-02] MEDS: ATORVASTATIN 40 MG TABLET PO SCH (08:03)
[2017-07-02] MEDS: LEVOTHYROXINE SODIUM 88 MCG TABLET PO SCH (08:03)
[2017-07-02] MEDS: MULTIVITAMINS,THERAGRAN 1 UDTAB TABLET PO SCH (08:03)
[2017-07-02] MEDS: TOPIRAMATE 100 MG TABLET PO SCH (08:03)
[2017-07-02] MEDS: LACTOBACILLUS RHAMNOSUS GG 1 EACH CAP.SPRINK PO SCH ×2 (08:03→16:29)
[2017-07-02] MEDS: HYDROCHLOROTHIAZIDE 25 MG TABLET PO SCH (08:04)
[2017-07-02] MEDS: NEOMY SULF/BACITRAC ZN/POLY 15 GM TUBE TP SCH (08:06)
[2017-07-02] MEDS: TOBRAMYCIN SULFATE OPHTH OINT 3.5 GM TUBE EACHEYE SCH (08:06)
[2017-07-02] MEDS: CIPROFLOXACIN HCL 0.3% 5 ML BOTTLE OT SCH ×2 (08:06→16:31)
[2017-07-02] MEDS: MUPIROCIN OINT 2% 22 GM TUBE SCH ×2 (08:06→20:37)
[2017-07-02] MEDS: CLOTRIMAZOLE/BETAMETASONE DIPROPIONATE 15 GM TUBE TP SCH ×2 (08:07→16:31)
[2017-07-02] MEDS: PROSOURCE / PROSTAT (PYXIS) 30 ML UDC GT SCH ×3 (08:09→16:29)
[2017-07-02 12:00] VITALS: BP 128/78
[2017-07-02] MEDS ORDERED: VALPROATE 1,500 MG in IV D5W 100 ML IV SCH (13:00)
[2017-07-02] MEDS: VALPROIC ACID 250 MG/5 ML UDC GT SCH ×2 (13:29→20:36)
[2017-07-02 16:00] VITALS: BP_SYST 118; BP_SYST 121; BP_DIAS 62; BP_DIAS 74
--- NOTE | 2017-07-02 18:06 | NUR ---
MAJOR SALES ASSOCIATE CLOSING NOTES NO ACUTE EVENTS. HOB ELEVATED. VENT TRACH SETTING UNCHANGED. TF NO RESIDUALS. NEWELL GOOD OUTPUT. IV INTACT. CALL LIGHT IN REACH WILL ENDORSE TO NOC RN. ISOLATION PRECAUTIONS IN PLACE.
--- NOTE | 2017-07-02 18:14 | NUR ---
NO VENT CHANGES MADE. Addendum: 07/02/17 at 1814 by IBETH SNYDER RT Amended: Links added.
--- NOTE | 2017-07-02 19:51 | NUR ---
RN OPENING NOTES RECEIVED PATIENT IN THE BED, AWAKE AOX1-2 CONFUSED. NO RESPIRATORY DISTRESS NOTED. PATIENT DENIES PAIN OR DISCOMFORT. HR 60. LEFT UPPER MIDLINE SKIN IS INTACT NO S/S OF INFECTION NOTED. BED IN LOWEST LOCKED POSITION. CALL LIGHT WITHIN REACH. WILL CONTINUE TO MONITOR
[2017-07-02 20:00] VITALS: BP 132/65
--- NOTE | 2017-07-02 20:06 | NUR ---
RECEIVED PT TRACHED ON VENT WITH NOTED SETTINGS. PT ALERT AND AWAKE ,NO DISTRESS NOTED. VENT ALARMS SET AND AUDIBLE . Q4 TX GIVEN. NO ADVERSE REACTION NOTED. SX SMALL AMOUNT OF WHITE THICK SECRETIONS. MECHANICAL VENTILATOR PLUGGED INTO RED OUTLET. WILL CONTINUE TO MONITOR THE PT.
--- NOTE | 2017-07-02 20:34 | NUR ---
RN NOTE VALPROIC ACID 1500MG, VERIFIED DOSE WITH PHARMACIST NATALIE, VERIFIED WITH CHARGE NURSE
[2017-07-02] MEDS: ACETAMINOPHEN 325 MG TABLET PO PRN (21:04)
[2017-07-02] MEDS: FIBERSOURCE HN 1,000 ML BOTTLE GT PRN (23:24)
[2017-07-03] VITALS: BP 126/58
--- NOTE | 2017-07-03 02:57 | NUR ---
RN NOTE CHANGED PICC LINE DRESSING, USED STERILE TECHNIQUE
[2017-07-03 04:00] VITALS: BP 108/72
[2017-07-03] MEDS: ALBUTEROL FS 2.5 MG/0.5 ML VIAL.NEB NEB SCH ×6 (04:09→23:17)
[2017-07-03] MEDS: IPRATROPIUM NEB FS 0.5 MG/2.5 ML AMPUL.NEB NEB SCH ×6 (04:09→23:17)
[2017-07-03] MEDS: VALPROIC ACID 250 MG/5 ML UDC GT SCH ×3 (04:14→20:53)
[2017-07-03] MEDS: ACETAMINOPHEN 325 MG TABLET PO PRN (05:06)
[2017-07-03] MEDS: IV NS 0.9% 1,000 ML IV PRN ×2 (06:17→21:02)
--- NOTE | 2017-07-03 07:14 | NUR ---
RN CLOSING NOTE PATIENT IS STABLE, NO ACUTE CHANGES DURING MY SHIFT. VENT TRACH SETTING UNCHANGED, SR WHILE AWAKE, 72, SINUS BRADYCARDIA WHILE ASLEEP 58, FEEDING 40ML/HR, RESIDUAL 5ML, NS AT 75ML/HR, TAI PICC LINE, PICC LINE DRESSING CHANGED, USED STERILE TECHNIQUE, NO S/S OF INFECTION NOTED, PROVIDED WOUND TREATMENT ORDERED, NON-LABORED RESPIRATIONS, SUCTIONED X 6 WITH MODERATE AMOUNT OF SECRETIONS, VENT PLUGGED INTO RED OUTLET WITH ALARMS ON AND FUNCTIONING, PATIENT TO BE DC TO [facility], CASE MANAG FOR PLACEMENT, BED IN THE LOW POSITION, CALL LIGHT WITHIN REACH, BELONGINGS CLOSE TO THE PATIENT, SIDE RAILS UP X 2, WILL ENDORSE CARE TO THE AM NURSE
--- NOTE | 2017-07-03 07:34 | NUR ---
DIRECTOR OF ANALYTICAL DEVELOPMENT NOTE PATIENT IS STABLE, WITH . VENT TRACH TO VENT SETTING ORDERED ON TELE MONITOR SINUS BRADYCARDIA 51 ON G TUBE FEEDING 40ML/HR, RESIDUAL 5ML, NS AT 75ML/HR, TAI PICC LINE, PICC LINE DRESSING INTACT , NO S/S OF INFECTION NOTED, , NON-LABORED RESPIRATIONS, , BED IN THE LOW POSITION, CALL LIGHT WITHIN REACH, SIDE RAILS UP X 2, WILL CONT TO MONITOR CLOSELY
[2017-07-03 08:00] VITALS: BP 139/72
[2017-07-03] MEDS: ACETYLCYSTEINE 10% SOLN 400 MG/4 ML VIAL NEB SCH ×3 (08:09→23:17)
[2017-07-03] MEDS: ENALAPRIL MALEATE (5 MG) 5 MG TABLET PO SCH (09:19)
[2017-07-03] MEDS: TOPIRAMATE 100 MG TABLET PO SCH (09:19)
[2017-07-03] MEDS: PANTOPRAZOLE 40 MG VIAL IV SCH (09:20)
[2017-07-03] MEDS: LEVOTHYROXINE SODIUM 88 MCG TABLET PO SCH (09:20)
[2017-07-03] MEDS: MULTIVITAMINS,THERAGRAN 1 UDTAB TABLET PO SCH (09:20)
[2017-07-03] MEDS: ATORVASTATIN 40 MG TABLET PO SCH (09:20)
[2017-07-03] MEDS: HYDROCHLOROTHIAZIDE 25 MG TABLET PO SCH (09:20)
[2017-07-03] MEDS: NEOMY SULF/BACITRAC ZN/POLY 15 GM TUBE TP SCH (09:21)
[2017-07-03] MEDS: PROSOURCE / PROSTAT (PYXIS) 30 ML UDC GT SCH ×3 (09:21→16:46)
[2017-07-03] MEDS: CLOTRIMAZOLE/BETAMETASONE DIPROPIONATE 15 GM TUBE TP SCH ×2 (09:21→16:45)
[2017-07-03] MEDS: LACTOBACILLUS RHAMNOSUS GG 1 EACH CAP.SPRINK PO SCH ×2 (09:22→16:44)
[2017-07-03] MEDS: CIPROFLOXACIN HCL 0.3% 5 ML BOTTLE OT SCH ×2 (09:22→16:46)
[2017-07-03] MEDS: MUPIROCIN OINT 2% 22 GM TUBE SCH ×2 (09:22→20:55)
[2017-07-03] MEDS: ENOXAPARIN SODIUM 40 MG/0.4 ML DISP.SYRIN SQ SCH (09:23)
[2017-07-03 12:00] VITALS: BP 138/72
--- NOTE | 2017-07-03 12:13 | NUR ---
BALDOMERO RN NOTE SPOKE WITH DR MARTIN NOTIFIED THAT PATIENT STILL HAS SUTURE ON TRACH SITE WITH SCANT AMT OF BLEEDING , STATED JUST TO MONITOR ALSO NOTIFIED THAT HR 50 ,PATENT ASYMPTOMATIC NO FEVER AT THIS TIME , WILL LOOKING FOR PLACEMENT AT SNF
--- NOTE | 2017-07-03 15:00 | NUR ---
CORPORATE STAFF ACCOUNTANT NOTE PATIENT IN BED ALL NEEDS ATTENDED KEEP CLEAN DRY , NOT IN ACUTE DISTRESS
[2017-07-03 16:00] VITALS: BP 145/80
--- NOTE | 2017-07-03 18:45 | NUR ---
FLY MAKER NOTE PATIENT IN BED , ALL NEEDS ATTENDED ,CONT ON G TUBE FEEDING ORDERED, KEEP HOB ELEVATED TRACH CARE DONE , NOT IN ACUTE DISTRESS
[2017-07-03 20:00] VITALS: BP 136/71
--- NOTE | 2017-07-03 20:00 | NUR ---
RN OPENING NOTE Received pt on vent support, pt stable on current settings, no SOB or respiratory distress noted, Ventilator is plugged into red outlet, alarms are audible, ambu bag at bedside. Ongoing IV Normal Saline 0.9% at 75ml/hr, no s/s of pain or discomfort noted. Will continue monitoring per MDS orders
--- NOTE | 2017-07-03 20:31 | NUR ---
Received pt on vent support, pt stable on current settings, no SOB or respiratory distress noted.Ventilator is plugged into red outlet, alarms are audible, ambu bag at bedside. Will continue monitoring per MDS orders. Addendum: 07/03/17 at 2031 by KIP SANDOVAL RT Amended: Links added.
[2017-07-04] VITALS: BP 134/61
[2017-07-04] MEDS: HYDROCODONE/APAP 5/325MG 1 EACH TABLET PO PRN (01:53)
[2017-07-04] MEDS: ALBUTEROL FS 2.5 MG/0.5 ML VIAL.NEB NEB SCH ×6 (03:30→23:46)
[2017-07-04] MEDS: IPRATROPIUM NEB FS 0.5 MG/2.5 ML AMPUL.NEB NEB SCH ×6 (03:30→23:46)
[2017-07-04 04:00] VITALS: BP 108/54
[2017-07-04] MEDS: VALPROIC ACID 250 MG/5 ML UDC GT SCH ×3 (05:03→21:20)
[2017-07-04 07:07] LABS: CALCIUM, SERUM 8.8 mg/dL (8.5-10.1); CREATININE 0.6 mg/dL (0.6-1.3); POTASSIUM 2.9 mmol/L (3.5-5.1)
[2017-07-04 07:14] LABS: BASOPHILS % (AUTO) 0.2 % (0.0-2.0); EOSINOPHILS # (AUTO) 0.4 /CMM (0.0-0.7); EOSINOPHILS % (AUTO) 4.1 % (0.0-6.0); HEMATOCRIT 37 % (39-51); HEMOGLOBIN 12.4 g/dL (13.5-17.5); LYMPHOCYTES # (AUTO) 1.2 /CMM (0.8-4.8); LYMPHOCYTES % (AUTO) 13.8 % (20.0-44.0); MEAN CORPUSCULAR HEMOGLOBIN 27 PG (26.0-33.0); MEAN CORPUSCULAR HGB CONC 34 g/dl (31.0-36.0); MEAN CORPUSCULAR VOLUME 81 fL (80-96); MONOCYTES # (AUTO) 0.9 /CMM (0.1-1.30); MONOCYTES % (AUTO) 10.1 % (2.0-12.0); NEUTROPHILS # (AUTO) 6.3 /CMM (1.8-8.9); NEUTROPHILS % (AUTO) 71.8 % (43.0-81.0); PLATELET COUNT (AUTO) 297 /CMM (150-450); RDW COEFFICIENT OF VARIATION 16.3 (11.5-15.0); RED BLOOD CELL COUNT(AUTO) 4.53 MIL/uL (4.5-6.0); WHITE BLOOD COUNT (AUTO) 8.8 K/uL (4.3-11.0)
[2017-07-04] MEDS: ACETYLCYSTEINE 10% SOLN 400 MG/4 ML VIAL NEB SCH ×3 (07:22→23:47)
--- NOTE | 2017-07-04 07:30 | NUR ---
BLOCKING MACHINE TENDER INITIAL NOTES RECEIVED PATIENT SLEEPING IN BED, ON VENT SETTINGS ORDERED, NO SIGNS OF DISTRESS, SATURATING 96% 02, AMBU BAG AT BEDSIDE, ON TELE MONITOR SB 53 HR, IV LEFT UPPER ARM PICC LINE INFUSING NS 75 ML/HR, BED IN LOW AND LOCKED POSITION CALL LIGHT WITHIN REACH WILL CONTINUE TO MONITOR.
[2017-07-04 08:00] VITALS: BP 133/82
[2017-07-04] MEDS: ENALAPRIL MALEATE (5 MG) 5 MG TABLET PO SCH (09:00)
[2017-07-04] MEDS ORDERED: POTASSIUM CHLORIDE 20 MEQ TAB.PRT.SR PO ONE (09:00)
[2017-07-04] MEDS: HYDROCHLOROTHIAZIDE 25 MG TABLET PO SCH (09:00)
--- NOTE | 2017-07-04 09:30 | NUR ---
CREPING MACHINE OPERATOR HELPER NOTES PATIENT BP MEDS HELD DUE TO LOW HR IN 50S WHEN PATIENT SLEEPING.
[2017-07-04] MEDS: ENOXAPARIN SODIUM 40 MG/0.4 ML DISP.SYRIN SQ SCH (09:39)
[2017-07-04] MEDS: PROSOURCE / PROSTAT (PYXIS) 30 ML UDC GT SCH ×3 (09:39→16:35)
[2017-07-04] MEDS: ATORVASTATIN 40 MG TABLET PO SCH (09:39)
[2017-07-04] MEDS: LACTOBACILLUS RHAMNOSUS GG 1 EACH CAP.SPRINK PO SCH ×2 (09:39→16:33)
[2017-07-04] MEDS: LEVOTHYROXINE SODIUM 88 MCG TABLET PO SCH (09:39)
[2017-07-04] MEDS: PANTOPRAZOLE 40 MG VIAL IV SCH (09:40)
[2017-07-04] MEDS: MULTIVITAMINS,THERAGRAN 1 UDTAB TABLET PO SCH (09:40)
[2017-07-04] MEDS: TOPIRAMATE 100 MG TABLET PO SCH (09:41)
[2017-07-04] MEDS: MUPIROCIN OINT 2% 22 GM TUBE SCH ×2 (09:42→21:19)
[2017-07-04] MEDS: NEOMY SULF/BACITRAC ZN/POLY 15 GM TUBE TP SCH (09:43)
[2017-07-04] MEDS: CIPROFLOXACIN HCL 0.3% 5 ML BOTTLE OT SCH ×2 (09:43→16:35)
[2017-07-04] MEDS: CLOTRIMAZOLE/BETAMETASONE DIPROPIONATE 15 GM TUBE TP SCH ×2 (09:44→16:33)
[2017-07-04] MEDS: FIBERSOURCE HN 1,000 ML BOTTLE GT PRN (11:52)
[2017-07-04 12:00] VITALS: BP 130/67
--- NOTE | 2017-07-04 14:30 | NUR ---
GROUND CREWMAN NOTES REPORT RECEIVED FROM PHILOMENA GILLILAND FOR KAELA.
--- NOTE | 2017-07-04 14:40 | NUR ---
FAMILY PARTNER NOTES GAVE REPORT TO RN SYLVIA FOR CONTINUITY OF CARE, ALL NEEDS ATTENDED TO. NO DISTRESS NOTED.
[2017-07-04] MEDS: IV NS 0.9% 1,000 ML IV PRN (15:01)
[2017-07-04 16:00] VITALS: BP_SYST 107; BP_SYST 128; BP_DIAS 71; BP_DIAS 78
--- NOTE | 2017-07-04 17:22 | NUR ---
RT NOTE: PATIENT RECEIVED TRACHED ON MECHANICAL VENT. ALARMS VERIFIED AND AUDIBLE. SUCTIONED AND LAVAGED MODERATE-LARGE AMOUNT OF THICK GONZALES SECRETIONS. VENT PLUGGED INTO RED OUTLET. AMBU BAG AT [facility].
--- NOTE | 2017-07-04 19:15 | NUR ---
RN OPENING NOTE RECEIVED PATIENT IN DISTRESS, AWAKE/ALERT, RT IS BY BEDSIDE BAGGING PATIENT, SO2 94%, ACCORDING TO RT, HME WAS CLOGGED, HME WAS REPLACED, SUCTIONED X2, BACK TO [facility] VENTILATOR, [facility] VENTILATOR READING: AC 16, TV 650, FIO2 45, PEEP 5, SHILEY 8, SR 78, LUNGS SOUNDS RONCHI BILATERALLY, VENTILATOR IS PLUGGED TO RED OUTLET AND WORKING PROPERLY. AMBUBAG IS BY BEDSIDE, LEFT UPPER ARM PICCLINE, NS 0.9% AT 75 ML/HR, ON G-TUBE FEEDING 40 ML/HR, ADMITTING DX AMS, S/P TRACH ON 06/21/2017, S/P PEG ON 06/27/17, RESPIRATORY FAILURE, OBESITY, PARANOID SCHIZOPHRENIA, NO RESPIRATORY DISTRESS AFTER HME REPLACEMENT, CHARGE NURSE IS AWARE, WILL CONTINUE TO MONITOR PATIENT
--- NOTE | 2017-07-04 19:16 | NUR ---
JEWEL HOLE CORNERER CLOSING NOTES PT ASLEEP, RESTING COMFORTABLY, WITH SHILEY 8, MECHANICAL VENT DEPENDENT SETTINGS ORDERED, NO SIGNS OF DISTRESS, SATURATING 100% 02, AMBU BAG AT BEDSIDE, ON TELE MONITOR SB 62 HR, IV LEFT UPPER ARM PICC LINE INFUSING NS 75 ML/HR, GTF ONGOING, FIBERSOURCE 40 ML/HR, O RESIDUAL.BED IN LOW AND LOCKED POSITION CALL LIGHT WITHIN REACH WILL ALL NEEDS MET, TURNED AND REPOSITIONED Q 2 HOURS, PM CARE DONE. ENDORSED TO NEXT SHIFT FOR KAELA.
[2017-07-04 20:00] VITALS: BP 139/81
[2017-07-04] MEDS: ACETAMINOPHEN 325 MG TABLET PO PRN (23:55)
[2017-07-05] VITALS: BP 137/72
[2017-07-05] MEDS: ALBUTEROL FS 2.5 MG/0.5 ML VIAL.NEB NEB SCH ×6 (03:41→23:45)
[2017-07-05] MEDS: IPRATROPIUM NEB FS 0.5 MG/2.5 ML AMPUL.NEB NEB SCH ×6 (03:41→23:45)
[2017-07-05 04:00] VITALS: BP 131/69
[2017-07-05] MEDS: VALPROIC ACID 250 MG/5 ML UDC GT SCH ×3 (05:34→20:45)
[2017-07-05 06:36] LABS: BASOPHILS % (AUTO) 0.4 % (0.0-2.0); EOSINOPHILS # (AUTO) 0.4 /CMM (0.0-0.7); EOSINOPHILS % (AUTO) 4.8 % (0.0-6.0); HEMATOCRIT 35 % (39-51); HEMOGLOBIN 11.5 g/dL (13.5-17.5); LYMPHOCYTES # (AUTO) 1.1 /CMM (0.8-4.8); LYMPHOCYTES % (AUTO) 14.7 % (20.0-44.0); MEAN CORPUSCULAR HEMOGLOBIN 27 PG (26.0-33.0); MEAN CORPUSCULAR HGB CONC 33 g/dl (31.0-36.0); MEAN CORPUSCULAR VOLUME 82 fL (80-96); MONOCYTES # (AUTO) 0.8 /CMM (0.1-1.30); MONOCYTES % (AUTO) 10.2 % (2.0-12.0); NEUTROPHILS # (AUTO) 5.3 /CMM (1.8-8.9); NEUTROPHILS % (AUTO) 69.9 % (43.0-81.0); PLATELET COUNT (AUTO) 266 /CMM (150-450); RDW COEFFICIENT OF VARIATION 16.3 (11.5-15.0); RED BLOOD CELL COUNT(AUTO) 4.25 MIL/uL (4.5-6.0); WHITE BLOOD COUNT (AUTO) 7.5 K/uL (4.3-11.0)
[2017-07-05 07:13] LABS: CALCIUM, SERUM 7.9 mg/dL (8.5-10.1); CREATININE 0.5 mg/dL (0.6-1.3); POTASSIUM 3.2 mmol/L (3.5-5.1)
[2017-07-05] MEDS: ACETYLCYSTEINE 10% SOLN 400 MG/4 ML VIAL NEB SCH ×3 (07:13→23:30)
--- NOTE | 2017-07-05 07:15 | NUR ---
RN CLOSING NOTE PATIENT IS AWAKE, NO ACUTE CHANGES DURING MY SHIFT NOTED. VENT TRACH SETTING UNCHANGED, SR WHILE AWAKE, 69, SINUS BRADYCARDIA WHILE ASLEEP 59, FEEDING 40ML/HR, RESIDUAL 0ML, NS AT 75ML/HR, TAI PICC LINE, USED STERILE TECHNIQUE, NO S/S OF INFECTION NOTED, PROVIDED WOUND TREATMENT ORDERED, NON-LABORED RESPIRATIONS, SUCTIONED X 7 WITH MODERATE AMOUNT OF SECRETIONS, VENT PLUGGED INTO RED OUTLET WITH ALARMS ON AND FUNCTIONING, WAITING FOR PLACEMENT, BED IN THE LOW POSITION, CALL LIGHT WITHIN REACH, BELONGINGS CLOSE TO THE PATIENT, SIDE RAILS UP X 3, WILL ENDORSE CARE TO THE AM NURSE
--- NOTE | 2017-07-05 07:29 | NUR ---
RN OPENING NOTE RECEIVED BEDSIDE SBAR REPORT ON THE PATIENT. PATIENT IS ASLEEP, EASILY AWAKEN, VENTILATOR DEPENDANT, VENT PLUGGED INTO RED OUTLET WITH ALARMS ON AND FUNCTIONING, WAITING FOR PLACEMENT, BED IS LOCKED, IN THE LOW POSITION, CALL LIGHT WITHIN REACH, BELONGINGS CLOSE TO THE PATIENT, SIDE RAILS UP X 3, BED ALARM IS ON. WILL CONTINUE TO ASSESS/MONITOR THROUGHOUT THE SHIFT.
[2017-07-05 08:00] VITALS: BP 122/69
[2017-07-05] MEDS: PROSOURCE / PROSTAT (PYXIS) 30 ML UDC GT SCH ×3 (08:40→17:10)
[2017-07-05] MEDS: LEVOTHYROXINE SODIUM 88 MCG TABLET PO SCH (08:41)
[2017-07-05] MEDS: ATORVASTATIN 40 MG TABLET PO SCH (08:42)
[2017-07-05] MEDS: LACTOBACILLUS RHAMNOSUS GG 1 EACH CAP.SPRINK PO SCH ×2 (08:43→17:10)
[2017-07-05] MEDS: TOPIRAMATE 100 MG TABLET PO SCH (08:44)
[2017-07-05] MEDS: MULTIVITAMINS,THERAGRAN 1 UDTAB TABLET PO SCH (08:46)
[2017-07-05] MEDS: PANTOPRAZOLE 40 MG VIAL IV SCH (08:47)
[2017-07-05] MEDS: ENALAPRIL MALEATE (5 MG) 5 MG TABLET PO SCH (08:49)
[2017-07-05] MEDS: HYDROCHLOROTHIAZIDE 25 MG TABLET PO SCH (08:49)
[2017-07-05] MEDS: ENOXAPARIN SODIUM 40 MG/0.4 ML DISP.SYRIN SQ SCH (08:51)
[2017-07-05] MEDS: IV NS 0.9% 1,000 ML IV PRN (08:55)
[2017-07-05] MEDS: MUPIROCIN OINT 2% 22 GM TUBE SCH ×2 (09:00→20:45)
[2017-07-05] MEDS: CLOTRIMAZOLE/BETAMETASONE DIPROPIONATE 15 GM TUBE TP SCH ×2 (09:01→17:15)
[2017-07-05] MEDS: NEOMY SULF/BACITRAC ZN/POLY 15 GM TUBE TP SCH (09:01)
[2017-07-05] MEDS: CIPROFLOXACIN HCL 0.3% 5 ML BOTTLE OT SCH ×2 (09:02→17:14)
[2017-07-05 12:00] VITALS: BP 129/78
[2017-07-05] MEDS: POTASSIUM CHLORIDE 20 MEQ POWDER PACKET GT SCH ×2 (13:26→17:11)
--- NOTE | 2017-07-05 14:15 | NUR ---
SPOKE TO ZEINA IN CASE MANAGEMENT TO DISCUSS THE NEED TO RE-MEASURE PATIENT'S ACCURATE WEIGHT FOR PLACEMENT. PER ZEINA PATIENT NEEDS TO BE RE-WEIGHT AGAIN TO ASSESS THE ACCURATE WEIGHT. MS. GASCA THE TRANSCRIBING OPERATORS SUPERVISOR INFORMED. PER MS. GASCA THE HOSPITAL DOES NOT HAVE A RAKAN RN OPENING NOTE LIFT SLEAVE AT THE SIZE REQUIRED FOR THE PATIENT AT THIS TIME.
--- NOTE | 2017-07-05 15:00 | NUR ---
PATIENT'S WEIGHT IS 360.8. PATIENT'S WEIGHT OBTAINED BY RAKAN LIFT SCALE AND BED SCALE.
[2017-07-05 16:00] VITALS: BP 123/78
[2017-07-05] MEDS: FIBERSOURCE HN 1,000 ML BOTTLE GT PRN (17:19)
--- NOTE | 2017-07-05 19:12 | NUR ---
RN CLOSING NOTE PATIENT IS ASLEEP, EASILY AWAKEN, VENTILATOR DEPENDANT, VENT PLUGGED INTO RED OUTLET WITH ALARMS ON AND FUNCTIONING, WAITING FOR PLACEMENT TOMORROW MORNING PER INSPECTOR WATCH PARTS. ALL DUE MEDICATIONS ADMINISTERED. PATIENT REPOSITIONED EVERY TWO HOURS. PATIENT IN BED IS LOCKED, IN THE LOW POSITION, CALL LIGHT WITHIN REACH, BELONGINGS CLOSE TO THE PATIENT, SIDE RAILS UP X 3, BED ALARM IS ON. WILL ENDORSE TO THE SEWER AND CUTTER FINGER BUFF MATERIAL NURSE FOR KAELA.
--- NOTE | 2017-07-05 19:30 | NUR ---
RN/TELE NOTES: RECEIVED PT. IN BED A/O X 1 W/ VENTILATOR SETTING TOLERATING WELL. NO FACIAL GRIMACES OR MOANING NOTED. ON TELE MONITOR SB @ 50's. ON GTF TOLERATING WELL W/ NO RESIDUAL NOTED. HAS PICC LINE ON TAI PATENT AND INTACT W/ DRESSING C/D/I W/ NO S/S OF INFECTION/INFILTRATION NOTED. HAS IVF RUNNING. CALL LIGHT W/ REACH. HOB ELEVATED. SAFETY AND SEIZURE PRECAUTION MAINTAINED. WILL CONTINUE TO MONITOR.
[2017-07-05 20:00] VITALS: BP 152/72
[2017-07-06] VITALS: BP 143/70
[2017-07-06] MEDS: ACETYLCYSTEINE 10% SOLN 400 MG/4 ML VIAL NEB SCH ×2 (00:07→07:35)
[2017-07-06] MEDS: IPRATROPIUM NEB FS 0.5 MG/2.5 ML AMPUL.NEB NEB SCH ×3 (03:51→10:39)
[2017-07-06] MEDS: ALBUTEROL FS 2.5 MG/0.5 ML VIAL.NEB NEB SCH ×3 (03:52→10:39)
[2017-07-06 04:00] VITALS: BP 171/91
[2017-07-06] MEDS: VALPROIC ACID 250 MG/5 ML UDC GT SCH ×2 (04:22→13:25)
[2017-07-06] MEDS: HYDROCODONE/APAP 5/325MG 1 EACH TABLET PO PRN (04:42)
--- NOTE | 2017-07-06 05:47 | NUR ---
RT PT RECEIVED TRACHED ON [facility] VENT WITH NOTED SETTING. VENT PLUGGED IN TO RED OUTLET. TRACH PATENT AND SECURE. OPERATIONS GENERAL AGENT DONE. ALARMS SET AND AUDIBLE. AMBU BAG AT HOB. SX MOD AMOUNT OF THICK GREEN SECRETIONS. HHN TX GIVEN ORDERED WITH NO ADVERSE REACTION. NO SOB O REASP DISTRESS NOTED ON SHIFT. WILL CONTINUE TO MONITOR AND ENDORSE TO DAY SHIFT RT. Addendum: 07/06/17 at 0551 by BJ HOWARD RT Amended: Links added.
[2017-07-06 06:20] VITALS: BP 137/79
[2017-07-06] MEDS: FIBERSOURCE HN 1,000 ML BOTTLE GT PRN (06:30)
[2017-07-06 06:41] LABS: BASOPHILS % (AUTO) 0.2 % (0.0-2.0); EOSINOPHILS # (AUTO) 0.3 /CMM (0.0-0.7); EOSINOPHILS % (AUTO) 3.5 % (0.0-6.0); HEMATOCRIT 39 % (39-51); LYMPHOCYTES # (AUTO) 1.2 /CMM (0.8-4.8); LYMPHOCYTES % (AUTO) 14.8 % (20.0-44.0); MEAN CORPUSCULAR HEMOGLOBIN 27 PG (26.0-33.0); MEAN CORPUSCULAR HGB CONC 34 g/dl (31.0-36.0); MEAN CORPUSCULAR VOLUME 81 fL (80-96); MONOCYTES # (AUTO) 0.7 /CMM (0.1-1.30); MONOCYTES % (AUTO) 9.3 % (2.0-12.0); NEUTROPHILS # (AUTO) 5.6 /CMM (1.8-8.9); NEUTROPHILS % (AUTO) 72.2 % (43.0-81.0); PLATELET COUNT (AUTO) 303 /CMM (150-450); RDW COEFFICIENT OF VARIATION 16.5 (11.5-15.0); RED BLOOD CELL COUNT(AUTO) 4.78 MIL/uL (4.5-6.0); WHITE BLOOD COUNT (AUTO) 7.8 K/uL (4.3-11.0)
[2017-07-06 06:52] LABS: CALCIUM, SERUM 8.5 mg/dL (8.5-10.1); CREATININE 0.6 mg/dL (0.6-1.3); POTASSIUM 3.2 mmol/L (3.5-5.1)
--- NOTE | 2017-07-06 07:42 | NUR ---
RN/ TELE NOTES: NO ACUTE CHANGES NOTED DURING THIS SHIFT. REPORT GIVEN TO AM NURSE FOR KAELA.
[2017-07-06 08:00] VITALS: BP 122/77
[2017-07-06] MEDS: PANTOPRAZOLE 40 MG VIAL IV SCH (08:21)
[2017-07-06] MEDS: PROSOURCE / PROSTAT (PYXIS) 30 ML UDC GT SCH ×2 (09:18→13:26)
[2017-07-06] MEDS: ATORVASTATIN 40 MG TABLET PO SCH (09:20)
[2017-07-06] MEDS: LACTOBACILLUS RHAMNOSUS GG 1 EACH CAP.SPRINK PO SCH (09:21)
[2017-07-06] MEDS: LEVOTHYROXINE SODIUM 88 MCG TABLET PO SCH (09:21)
[2017-07-06] MEDS: TOPIRAMATE 100 MG TABLET PO SCH (09:21)
[2017-07-06] MEDS: MULTIVITAMINS,THERAGRAN 1 UDTAB TABLET PO SCH (09:21)
[2017-07-06] MEDS: MUPIROCIN OINT 2% 22 GM TUBE SCH (09:23)
[2017-07-06] MEDS: CIPROFLOXACIN HCL 0.3% 5 ML BOTTLE OT SCH (09:24)
[2017-07-06] MEDS: CLOTRIMAZOLE/BETAMETASONE DIPROPIONATE 15 GM TUBE TP SCH (09:24)
[2017-07-06] MEDS: NEOMY SULF/BACITRAC ZN/POLY 15 GM TUBE TP SCH (09:25)
[2017-07-06] MEDS: ENOXAPARIN SODIUM 40 MG/0.4 ML DISP.SYRIN SQ SCH (09:35)
[2017-07-06] MEDS: HYDROCHLOROTHIAZIDE 25 MG TABLET PO SCH (09:38)
[2017-07-06] MEDS: ENALAPRIL MALEATE (5 MG) 5 MG TABLET PO SCH (09:39)
[2017-07-06 12:00] VITALS: BP 133/73
[2017-07-06] MEDS ORDERED: ALBU2.5V13 NEB (12:25)
[2017-07-06] MEDS ORDERED: VALP250S22 GT (12:25)
[2017-07-06] MEDS ORDERED: ACET1OOV6 NEB (12:25)
[2017-07-06] MEDS ORDERED: MULT-24 PO (12:25)
[2017-07-06] MEDS ORDERED: IPRA0.2S9 NEB (12:25)
[2017-07-06] MEDS ORDERED: POTASSIUM CHLORIDE 20 MEQ TAB.PRT.SR PO ONE (12:45)
--- NOTE | 2017-07-06 14:26 | NUR ---
TRANSFER ENGINEER NOTE: PATIENT'S ON HD AND BP 204/94 HR 70. PATIENT ASYMPTOMATIC. VERBALIZED FEELING NERVOUS DURING HD TREATMENT. Addendum: 07/06/17 at 2024 by OSMANY SNOW RN WRONG PATIENT
--- NOTE | 2017-07-06 14:43 | NUR ---
ADMINISTRATIVE TECH NOTE: PATIENT WAS DISCHARGE IN STABLE CONDITION. PICKED-UP BY marketing development representative OF [facility] VIA PA. REPORT WAS GIVEN TO GRACE MACHADO FROM [facility] FOR CONTINUITY OF CARE. CONTACT ISOLATION FOR MRSA NARES OBSERVED.
== END 2017-07-06 15:00 | DRG 4 ==
LOC: ER 22:12 → ICU 23:26 → TELE-TD 06-27 00:53 → TELE1 06-27 01:29 → MEDSG1 06-29 11:07 → TELE1 06-29 16:28
PROVIDERS: ADMIT Nurse Practitioner Acute Care; ATTEND Nurse Practitioner Acute Care
PROC: 0BH17EZ Insertion of Endotracheal Airway into Trachea, Via Natural or Artificial Opening (ICD-10-PCS; 2017-06-06)
PROC: 5A1955Z Respiratory Ventilation, Greater than 96 Consecutive Hours (ICD-10-PCS; 2017-06-06)
PROC: 05H533Z Insertion of Infusion Device into Right Subclavian Vein, Percutaneous Approach (ICD-10-PCS; 2017-06-06)
PROC: B546ZZA Ultrasonography of Right Subclavian Vein, Guidance (ICD-10-PCS; 2017-06-06)
PROC: 0B113F4 Bypass Trachea to Cutaneous with Tracheostomy Device, Percutaneous Approach (ICD-10-PCS; principal; 2017-06-21 07:15)
PROC: 0DH63UZ Insertion of Feeding Device into Stomach, Percutaneous Approach (ICD-10-PCS; 2017-06-29)
DX: J96.02 Acute respiratory failure with hypercapnia (principal); G92 Toxic encephalopathy; J18.9 Pneumonia, unspecified organism; I11.0 Hypertensive heart disease with heart failure; E72.20 Disorder of urea cycle metabolism, unspecified; R13.10 Dysphagia, unspecified; I50.32 Chronic diastolic (congestive) heart failure; R56.9 Unspecified convulsions; E66.2 Morbid (severe) obesity with alveolar hypoventilation; E87.1 Hypo-osmolality and hyponatremia; Z68.42 Body mass index [BMI] 45.0-49.9, adult; J98.11 Atelectasis; F20.0 Paranoid schizophrenia; E11.9 Type 2 diabetes mellitus without complications; J32.2 Chronic ethmoidal sinusitis; K72.90 Hepatic failure, unspecified without coma; E03.9 Hypothyroidism, unspecified; E83.42 Hypomagnesemia; E78.5 Hyperlipidemia, unspecified; E87.6 Hypokalemia; I87.8 Other specified disorders of veins; J96.01 Acute respiratory failure with hypoxia; M17.0 Bilateral primary osteoarthritis of knee; T41.295A Adverse effect of other general anesthetics, initial encounter; Y92.129 Unspecified place in nursing home as the place of occurrence of the external cause; E78.1 Pure hyperglyceridemia; I73.9 Peripheral vascular disease, unspecified; H66.91 Otitis media, unspecified, right ear; Z87.891 Personal history of nicotine dependence; I87.2 Venous insufficiency (chronic) (peripheral); D64.9 Anemia, unspecified; Z79.84 Long term (current) use of oral hypoglycemic drugs
CPT/HCPCS: 31720; 36415; 36569; 36600; 43246; 70450-TC; 71010-TC; 71045-TC; 80048-TC; 80061-TC; 80076-TC; 80164-TC; 80202-TC; 80305; 81000-TC; 82140-TC; 82803-TC; 83605-TC; 83735-TC; 83880; 84100-TC; 84439-TC; 84443-TC; 84478-TC; 84484-TC; 85025-TC; 85730-TC; 87040-TC; 87070-TC; 87081-TC; 87086-TC; 87400; 92950-TC; 93307-TC; 94002-TC; 94003-TC; 94668-TC; 94760-TC; 94762-TC; 95819-TC; A4606; A6402; A7526; C1751; C9113; G0480; J0692; J0696; J1650; J1940; J1956; J2060; J2185; J2250; J2270; J2310; J2543; J2704; J3010; J3370; J3475; J3480; J3490; J7030; J7040; J7050; J7060; Z7610

== ENCOUNTER 2017-11-10 18:36 | Emergency (ER) | payer MEDICAID, MEDICARE, OTHER ==
[~2017-11-10] VITALS: Ht 180.3 cm; Wt 161.0 kg
[~2017-11-10 18:36] MED LIST: ACET1OOV6 NEB; ALBU2.5V13 NEB; ATOR80TA PO; CLOT15CR5 TP; DIVA-78 PO; DOCU250C89 PO; DULO30CA2 PO; ENAL5TAB PO; FAMO20TA8 PO; HYDR25TA4 PO; IBUP-1955 PO; IPRA0.2S9 NEB; LEVO88TA5 PO; LORA-259 PO; METF-440 PO; MULT-24 PO; PALI6TAB PO; PROP80CA2 PO; QUET400T3 PO; SILV50CR32 TP; TOPI50TA24 PO; VALP250S22 GT
--- NOTE | 2017-11-10 18:48 | NUR ---
SBBRA [id number] FROM BUS STOP: BLE SWELLING X 4 DAYS. PATIENT IS AWAKE AND ALERT APPEARS IN NO DISTRESS. RESPIRATION EVEN AND UNLABORED. PATIENT IS COMPLAINING OF BLE PAIN, 6/10, NON RADIATING. PATIENT IS AFEBRILE. VS
--- NOTE | 2017-11-10 19:06 | NUR ---
REPORT RECEIVED FROM DARSHANA CARR FOR KAELA.
[2017-11-10] MEDS ORDERED: ASPIRIN 325 MG TABLET PO ONE (19:30)
[2017-11-10] MEDS ORDERED: FUROSEMIDE 40 MG/4 ML VIAL IV ONE (19:30)
--- NOTE | 2017-11-10 19:55 | NUR ---
ULTRASOUND AT THE BEDSIDE.
[2017-11-10] MEDS ORDERED: ASPIRIN 325 MG TABLET ONE (19:58)
[2017-11-10] MEDS ORDERED: FUROSEMIDE 40 MG/4 ML VIAL ONE (19:58)
--- NOTE | 2017-11-10 20:20 | NUR ---
URINE SPECIMEN OBTAINED AND SENT TO THE LAB.
[2017-11-10 20:41] LABS: BASOPHILS % (AUTO) 0.2 % (0.0-2.0); EOSINOPHILS % (AUTO) 1.1 % (0.0-6.0); HEMATOCRIT 43 % (39-51); HEMOGLOBIN 14.3 g/dL (13.5-17.5); LYMPHOCYTES # (AUTO) 1.1 /CMM (0.8-4.8); LYMPHOCYTES % (AUTO) 10.9 % (20.0-44.0); MEAN CORPUSCULAR HGB CONC 34 g/dl (31.0-36.0); MEAN CORPUSCULAR VOLUME 87 fL (80-96); MONOCYTES # (AUTO) 0.9 /CMM (0.1-1.30); MONOCYTES % (AUTO) 8.6 % (2.0-12.0); NEUTROPHILS # (AUTO) 8.1 /CMM (1.8-8.9); NEUTROPHILS % (AUTO) 79.2 % (43.0-81.0); PLATELET COUNT (AUTO) 252 /CMM (150-450); RDW COEFFICIENT OF VARIATION 14.1 (11.5-15.0); RED BLOOD CELL COUNT(AUTO) 4.88 MIL/uL (4.5-6.0); WHITE BLOOD COUNT (AUTO) 10.3 K/uL (4.3-11.0)
[2017-11-10 20:44] LABS: ALANINE AMINOTRANSFERASE 23 U/L (12-78); ALBUMIN 2.8 g/dL (3.4-5.0); ALKALINE PHOSPHATASE 83 U/L (46-116); ASPARTATE AMINOTRANSFERASE 13 U/L (15-37); B-TYPE NATRIURETIC PEPTIDE 68 PG/ML (0-125); BILIRUBIN,DIRECT 0.1 mg/dL (0.0-0.2); BILIRUBIN,TOTAL 0.3 mg/dL (0.2-1.0); CALCIUM, SERUM 9.3 mg/dL (8.5-10.1); CARBON DIOXIDE 28 mmol/L (21-32); CHLORIDE 107 mmol/L (98-107); CREATININE 0.8 mg/dL (0.6-1.3); GLUCOSE 105 mg/dL (74-106); POTASSIUM 3.8 mmol/L (3.5-5.1); SODIUM SERUM 145 mmol/L (136-145); TOTAL PROTEIN, SERUM 8.3 g/dL (6.4-8.2); UREA NITROGEN, BLOOD 13 mg/dL (7-18)
[2017-11-10 20:48] LABS: INR 0.99 (0.87-1.13)
[2017-11-10 20:49] LABS: TROPONIN I < 0.017 ng/mL (0.00-0.056)
[2017-11-10 22:20] VITALS: BP 139/91
== END 2017-11-10 22:21 | disposition home or self-care (01) ==
LOC: ER 18:37
DX: I48.2 Chronic atrial fibrillation (principal); E11.9 Type 2 diabetes mellitus without complications; E78.5 Hyperlipidemia, unspecified; F20.9 Schizophrenia, unspecified; I89.0 Lymphedema, not elsewhere classified; I11.0 Hypertensive heart disease with heart failure; I50.9 Heart failure, unspecified; K21.9 Gastro-esophageal reflux disease without esophagitis; Z79.82 Long term (current) use of aspirin; Z88.0 Allergy status to penicillin; Z60.2 Problems related to living alone
CPT/HCPCS: 36415; 71045-TC; 80048-TC; 80076-TC; 83605-TC; 83880; 84484-TC; 85025-TC; 85730-TC; 87040-TC; 93970-TC; A4606; J1940; Z7610

== ENCOUNTER 2017-11-11 17:24 | Emergency (ER) | payer MEDICARE, OTHER ==
[~2017-11-11] VITALS: Ht 167.6 cm; Wt 81.6 kg
[2017-11-11 17:46] VITALS: BP 148/102
[2017-11-11 17:56] LABS: BASOPHILS % (AUTO) 0.4 % (0.0-2.0); EOSINOPHILS % (AUTO) 0.9 % (0.0-6.0); HEMATOCRIT 39 % (39-51); HEMOGLOBIN 13.2 g/dL (13.5-17.5); LYMPHOCYTES # (AUTO) 1.2 /CMM (0.8-4.8); LYMPHOCYTES % (AUTO) 11.5 % (20.0-44.0); MEAN CORPUSCULAR HGB CONC 34 g/dl (31.0-36.0); MEAN CORPUSCULAR VOLUME 87 fL (80-96); MONOCYTES # (AUTO) 0.9 /CMM (0.1-1.30); MONOCYTES % (AUTO) 9.2 % (2.0-12.0); NEUTROPHILS # (AUTO) 7.9 /CMM (1.8-8.9); PLATELET COUNT (AUTO) 245 /CMM (150-450); RDW COEFFICIENT OF VARIATION 13.1 (11.5-15.0); RED BLOOD CELL COUNT(AUTO) 4.46 MIL/uL (4.5-6.0); WHITE BLOOD COUNT (AUTO) 10.1 K/uL (4.3-11.0)
[2017-11-11 18:11] LABS: ALBUMIN 2.4 g/dL (3.4-5.0); BILIRUBIN,TOTAL 0.3 mg/dL (0.2-1.0); CALCIUM, SERUM 8.4 mg/dL (8.5-10.1); POTASSIUM 3.4 mmol/L (3.5-5.1); TOTAL PROTEIN, SERUM 7.2 g/dL (6.4-8.2)
--- NOTE | 2017-11-11 18:32 | NUR ---
CALLED [facility] FOR TRANSPORT BACK TO [facility], ETA 2029, TRIP [id number]
--- NOTE | 2017-11-11 21:35 | NUR ---
PT GOING TO [address] [place] [address]
== END 2017-11-11 21:39 | disposition home or self-care (01) ==
LOC: ER 17:25
DX: I89.0 Lymphedema, not elsewhere classified (principal); F20.9 Schizophrenia, unspecified; I48.91 Unspecified atrial fibrillation; I10 Essential (primary) hypertension; K21.9 Gastro-esophageal reflux disease without esophagitis; E11.9 Type 2 diabetes mellitus without complications; E78.5 Hyperlipidemia, unspecified; Z88.0 Allergy status to penicillin; Z60.2 Problems related to living alone
CPT/HCPCS: 36415; 80053-TC; 85025-TC; 87040-TC; A4606; Z7610